=== PATIENT | male | born 1955 | race Caucasian/White ===

== ENCOUNTER 2019-08-06 08:01 | Emergency (ER) | payer MEDICARE, SELFPAY ==
--- NOTE | ~2019-08-06 | XR_ITS ---
EXAMINATION: XR tibia fibula RT 2V DATE: 08/06/2019 08:36 INDICATION: Right lower leg deformity. Fall. TECHNIQUE: 2 views of right tibia and fibula on 4 radiographs were obtained. COMPARISON: Right knee radiographs 02/03/2019 FINDINGS: Partially visualized is a total right knee arthroplasty revision. There is an oblique fract ure of mid shaft of right tibia. The distal fracture fragment demonstrates 9 mm posterior displacemen t, 4 mm medial displacement, 10 degrees anterior angulation, and 10 mm shortening. There is a comminu nidhi fracture of right fibula at the junction of the proximal and middle thirds. The main distal fract ure fragment demonstrates 3 mm medial displacement, 6 degrees medial angulation, 9 degrees anterior a ngulation, and shortening. There is normal alignment at the ankle. IMPRESSION: 1. Oblique fracture of mid shaft of right tibia. 2. Comminuted fracture of proximal right fibular diaphysis. 3. Total right knee arthroplasty. Reviewed, dictated and finalized at location A.
--- NOTE | ~2019-08-06 | XR_ITS ---
EXAMINATION: XR hip RT 2V w AP pelvis DATE: 08/06/2019 08:36 INDICATION: Right hip injury. TECHNIQUE: An anteroposterior view of the pelvis and 2 views of right hip were obtained. COMPARISON: None. FINDINGS: There is a basicervical fracture of right femoral neck. The distal fracture fragment demons trates 4 mm posterior displacement. Partially visualized is a total right knee arthroplasty. Osteopen ia is noted. There is mild osteoarthritis of the hips. There are changes of posterior fusion procedur e in lumbar spine. Surgical clips overlie the pelvis. A pump overlies left abdomen. IMPRESSION: 1. Basicervical fracture of right femoral neck. 2. Mild osteoarthritis of the hips. Reviewed, dictated and finalized at location A.
[2019-08-06 08:03] VITALS: BP 144/106; PULSE 66; RESP 22; TEMP 36.8; O2SAT 100
--- NOTE | 2019-08-06 08:07 | ED.FALL ---
HPI - Fall General Chief Complaint: Fall Stated Complaint: FALL Time Seen by Provider: 08/06/19 08:05 History of Present Illness HPI Narrative: He has a right leg injury after a fall this morning. He took a wrong step and his leg bent underneath him. severe pain in the right lower leg and hip. Noted to have deformities of both by EMS. Given 4 mg IM morphine without adequate pain control. Related Data Home Medications Medication Instructions Recorded Confirmed Novolog Flexpen U-100 Insulin See Rx Instructions .ROUTE .COMPLEX 01/07/19 01/07/19 albuterol sulfate [ProAir HFA] 2 puff INHALATION Q6H PRN 01/07/19 01/07/19 aspirin [Enteric Coated Aspirin] 81 mg PO DAILY 01/07/19 01/07/19 calcium carbonate-vitamin D3 1 cap PO DAILY 01/07/19 01/07/19 carvedilol 6.25 mg PO BID 01/07/19 01/07/19 folic acid 1 mg PO DAILY 01/07/19 01/07/19 multivitamin 1 tablet PO DAILY 01/07/19 01/07/19 aagiy-6-pvp-iig-lum-ncdw oil 1 cap PO BID 01/07/19 01/07/19 pyridoxine (vitamin B6) 100 mg PO DAILY 01/07/19 01/07/19 vitamin B complex 1 tablet PO DAILY 01/07/19 01/07/19 albuterol sulfate 90 mcg/actuation 2 puff INHALATION Q4-6H PRN gm 03/05/19 aerosol inhaler aspirin 81 mg tablet,delayed 81 mg PO DAILY 03/05/19 release blood sugar diagnostic, drum #51 each 03/05/19 carvedilol 6.25 mg tablet 6.25 mg PO Q12H 03/05/19 cholecalciferol (vitamin D3) 25 1,000 unit PO DAILY 03/05/19 mcg (1,000 unit) capsule cyanocobalamin (vitamin B-12) 1,000 mcg PO DAILY 03/05/19 1,000 mcg capsule insulin aspar prot-insulin aspart See Rx Instructions SUB-Q BID 03/05/19 100 unit/mL (70-30) subcutaneous pen ipratropium 0.5 mg-albuterol 3 mg 3 ml INHALATION .4 TIMES A DAY PRN 03/05/19 (2.5 mg base)/3 mL nebulization ml soln multivitamin 1 tablet PO DAILY 03/05/19 omega 6-ynu-ver-fish oil 100 cap PO 03/05/19 mg-160 mg-1,000 mg capsule tacrolimus 1 mg capsule 1 mg PO Q12H 03/05/19 cyanocobalamin (vitamin B-12) 1,000 mcg IM MONTHLY 03/19/19 03/19/19 1,000 mcg/mL injection solution tacrolimus 0.5 mg capsule 0.5 mg PO Q12H cap 03/19/19 03/19/19 doxycycline hyclate 100 mg tablet 100 mg PO BID tablet 08/05/19 Allergies Allergy/AdvReac Type Severity Reaction Status Date / Time cefazolin Allergy Mild Rash Verified 08/06/19 13:03 Cephalosporins Allergy Mild Rash Verified 08/06/19 13:03 Penicillins Allergy Mild Rash Verified 08/06/19 13:03 Review of Systems Review of Systems: All systems reviewed & are unremarkable except as noted in HPI and below Constitutional: Constitutional: Denies fever(s) Cardiovascular: Cardiovascular: Denies chest pain Respiratory: Respiratory: Denies dyspnea Gastrointestinal: Gastrointestinal: Denies nausea and Denies vomiting Neurologic: Denies dizziness and Denies numbness PMFSH Past Medical History Medical History Chronic low back pain Chronic pain syndrome Depression Hypertension, essential 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 Kidney disease 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 Type 2 diabetes mellitus with hyperglycemia, with long-term current use of insulin Surgical History Surgical History Renal transplant recipient Family History Family History Grandparent Acute myocardial infarction Mother Family history of chronic obstructive pulmonary disease Family history of lung cancer Father Carcinoma of colon Hypertension Social History Social History Smoking status: Former smoker Alcohol intake: current Gender identity (if verbalized by the patient): Male Exam Const: General: alert and ill appearing chronically Orientation/consciousness: patient oriented x3 Other: mild distress HENMT: Head: normal
[2019-08-06] MEDS: MORPHINE SULFATE 4 MG/ML INJ IV PUSH ×2 (08:17→10:25)
[2019-08-06 09:17] VITALS: BP 106/84; PULSE 70; RESP 18; O2SAT 100
--- NOTE | 2019-08-06 09:26 | PC.NURSE ---
Williams Ems declined transfer to [facility] Henny Ems accepted transfer to [facility] [place] TRIP # [id number] ETA 20min
[2019-08-06 10:18] VITALS: BP 138/114; PULSE 77; RESP 18; O2SAT 98
== END 2019-08-06 10:35 | disposition short-term general hospital (02) ==
LOC: ANHED 08:59
PROVIDERS: Emergency Provider Emergency Medicine; PCP Internal Medicine
DX: S82.231A Displaced oblique fracture of shaft of right tibia, initial encounter for closed fracture (principal); S72.041A Displaced fracture of base of neck of right femur, initial encounter for closed fracture; S89.291A Other physeal fracture of upper end of right fibula, initial encounter for closed fracture; Z96.651 Presence of right artificial knee joint; Z94.0 Kidney transplant status; I10 Essential (primary) hypertension; M16.0 Bilateral primary osteoarthritis of hip; Z79.82 Long term (current) use of aspirin; Z85.828 Personal history of other malignant neoplasm of skin; Z87.891 Personal history of nicotine dependence; Z79.4 Long term (current) use of insulin; N28.9 Disorder of kidney and ureter, unspecified; E11.9 Type 2 diabetes mellitus without complications; W01.0XXA Fall on same level from slipping, tripping and stumbling without subsequent striking against object, initial encounter
CPT/HCPCS: 29515; 73502; 73590; 96374; 96376; 99285; J2270

== ENCOUNTER 2019-12-22 00:12 | Outpatient (CLI) | payer MEDICARE, SELFPAY ==
[2019-12-22 18:38] LABS: SARS-CoV-2 RNA PCR Negative
== END 2019-12-22 00:13 | disposition home or self-care (01) ==
LOC: ANHCOVIDDT 00:32
PROVIDERS: PCP Internal Medicine; Visit Provider Internal Medicine Gastroenterology
DX: Z01.812 Encounter for preprocedural laboratory examination (principal); Z20.828 Contact with and (suspected) exposure to other viral communicable diseases
CPT/HCPCS: 87635; C9803; U0003

== ENCOUNTER 2019-12-24 01:42 | Day surgery (SDC) | payer MEDICARE, SELFPAY ==
[2019-12-20 13:33] VITALS: BMI 25.9
[2019-12-24 08:54] LABS: Glucose Point of Care 80 (65-105)
[2019-12-24 09:01] VITALS: BP 116/75; PULSE 90; RESP 20; TEMP 36.3; O2SAT 100
--- NOTE | 2019-12-24 09:08 | WPDANESEPPF ---
Anes - Initial Pre Proc Eval Procedure: Operation Date: 12/24/19 10:00 Proposed Procedures p Esophagogastroduodenoscopy & Screening Colonoscopy - Shaw Marie MD Date/Time: 12/24/19 09:08 Surgeon: Shaw Marie MD Pre Op Diagnosis: Neoplasm Screening, epigastric pain Patient Data Age: 64 Gender: M Height: 5 ft 9 in Weight: 84.2 kg Last Vital Signs Temp 97.4 F L 12/24/19 09:01 Pulse 90 12/24/19 09:01 Resp 20 12/24/19 09:01 BP 116/75 12/24/19 09:01 Pulse Ox 100 12/24/19 09:01 Allergies Allergy/AdvReac Type Severity Reaction Status Date / Time cefazolin Allergy Mild Rash Verified 12/24/19 08:57 Cephalosporins Allergy Mild Rash Verified 12/24/19 08:57 Penicillins Allergy Mild Rash Verified 12/24/19 08:57 Home Medications Medication Instructions Recorded Confirmed Type calcium carbonate-vitamin D3 1 cap PO DAILY 01/07/19 12/20/19 History folic acid 1 mg PO DAILY 01/07/19 12/20/19 History insulin aspart U-100 [Novolog See Rx Instructions .ROUTE .COMPLEX 01/07/19 12/20/19 History Flexpen U-100 Insulin] multivitamin 1 tablet PO DAILY 01/07/19 12/20/19 History exoqp-2-ozi-npy-yqr-grhn oil 1 cap PO BID 01/07/19 12/20/19 History pyridoxine (vitamin B6) 100 mg PO DAILY 01/07/19 12/20/19 History vitamin B complex 1 tablet PO DAILY 01/07/19 12/20/19 History blood sugar diagnostic #50 each 01/14/19 Rx blood-glucose meter #1 each 01/14/19 Rx lancets 26 gauge #100 each 01/14/19 Rx albuterol sulfate 90 mcg/actuation 2 puff INHALATION Q4-6H gm 03/05/19 12/20/19 History aerosol inhaler aspirin 81 mg tablet,delayed 81 mg PO DAILY 03/05/19 12/20/19 History release blood sugar diagnostic, drum #51 each 03/05/19 History cholecalciferol (vitamin D3) 25 1,000 unit PO DAILY 03/05/19 12/20/19 History mcg (1,000 unit) capsule insulin aspar prot-insulin aspart See Rx Instructions SUB-Q BID 03/05/19 12/20/19 History 100 unit/mL (70-30) subcutaneous pen tacrolimus 1 mg capsule 1 mg PO Q12H 03/05/19 12/20/19 History cyanocobalamin (vitamin B-12) 1,000 mcg IM MONTHLY 03/19/19 12/20/19 History 1,000 mcg/mL injection solution tacrolimus 0.5 mg capsule 0.5 mg PO Q12H cap 03/19/19 12/20/19 History gemfibrozil 600 mg tablet 600 mg PO DAILY #90 tablet 06/07/19 12/20/19 Rx spironolactone 100 mg tablet See Rx Instructions .ROUTE 10/04/19 12/20/19 Rx .COMPLEX #90 tablet hydromorphone [Dilaudid] 0.031 mg SUBCUT Q4H PRN 12/20/19 12/20/19 History insulin glargine [Lantus Solostar 4 unit SUB-Q DAILY 12/20/19 12/20/19 History U-100 Insulin] minocycline 100 mg PO DAILY 12/20/19 12/20/19 History prednisone 5 mg PO DAILY 12/20/19 12/20/19 History Laboratory Tests 12/24/19 08:51 POC Capillary Glucose 80 mg/dl mg/dl (65-105) Patient hx anesthesia problems: none Family hx anesthesia problems: none PMFSH Past Medical History Medical History (Updated 08/07/19 @ 00:00 by Background Dasaúl) Chronic low back pain Chronic pain syndrome Depression Hypertension, essential 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 Kidney disease 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
--- NOTE | 2019-12-24 09:18 | PM.HPGS ---
History of Present Illness History of Present Illness Consent: Risks, benefits, and alternatives have been discussed and questions answered. Patient agrees to proceed with procedure. Chief complaint: Neoplasm Screening, epigastric pain Narrative: Abhilash Jesus is a 64 year old male Here for screening colonoscopy. his father had colon cancer He is also having epigastric pain which began about 6 months ago. It is mostly aggravated by drinking something cold. Occasion he will have a feeling that his saliva is going down the wrong throat and gags him temporarily. 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es not use Living arrangements: with family Gender identity (if verbalized by the patient): Male Spiritual care concerns: No Meds Home Medications and Allergies Home Medications Medication Instructions Recorded Confirmed Type calcium carbonate-vitamin D3 1 cap PO DAILY 01/07/19 12/20/19 History folic acid 1 mg PO DAILY 01/07/19 12/20/19 History insulin aspart U-100 [Novolog See Rx Instructions .ROUTE .COMPLEX 01/07/19 12/20/19 History Flexpen U-100 Insulin] multivitamin 1 tablet PO DAILY 01/07/19 12/20/19 History ndeke-2-ljn-anc-rxm-xemd oil 1 cap PO BID 01/07/19 12/20/19 History pyridoxine (vitamin B6) 100 mg PO DAILY 01/07/19 12/20/19 History vitamin B complex 1 tablet PO DAILY 01/07/19 12/20/19 History blood sugar diagnostic #50 each 01/14/19 Rx blood-glucose meter #1 each 01/14/19 Rx lancets 26 gauge #100 each 01/14/19 Rx albuterol sulfate 90 mcg/actuation 2 puff INHALATION Q4-6H gm 03/05/19 12/20/19 History aerosol inhaler aspirin 81 mg tablet,delayed 81 mg PO DAILY 03/05/19 12/20/19 History release blood sugar diagnostic, drum #51 each 03/05/19 History cholecalciferol (vitamin D3) 25 1,000 unit PO DAILY 03/05/19 12/20/19 History mcg (1,000 unit) capsule insulin aspar prot-insulin aspart See Rx Instructions SUB-Q BID 03/05/19 12/20/19 History 100 unit/mL (70-30) subcutaneous pen tacrolimus 1 mg capsule 1 mg PO Q12H 03/05/19 12/20/19 History cyanocobalamin (vitamin B-12) 1,000 mcg IM MONTHLY 03/19/19 12/20/19 History 1,000 mcg/mL injection solution tacrolimus 0.5 mg capsule 0.5 mg PO Q12H cap 03/19/19 12/20/19 History gemfibrozil 600 mg tablet 600 mg PO DAILY #90 tablet 06/07/19 12/20/19 Rx spironolactone 100 mg tablet See Rx Instructions .ROUTE 10/04/19 12/20/19 Rx .COMPLEX #90 tablet hydromorphone [Dilaudid] 0.031 mg SUBCUT Q4H PRN 12/20/19 12/20/19 History insulin glargine [Lantus Solostar 4 unit SUB-Q DAILY 12/20/19 12/20/19 History U-100 Insulin] minocycline 100 mg PO DAILY 12/20/19 12/20/19 History prednisone 5 mg PO DAILY 12/20/19 12/20/19 History Allergies Allergy/AdvReac Type Severity Reaction Status Date / Time cefazolin Allergy Mild Rash Verified 12/24/19 08:57 Cephalosporins Allergy Mild Rash Veri
[2019-12-24] MEDS: LACTATED RINGERS 1,000 ML 150 ML IV CONT (09:19)
[2019-12-24] MEDS: SIMETHICONE ORAL SUSPENSION 20 MG/0.3 ML 30 ML BOTTLE 0.6 ML IRRIGATION (09:33)
[2019-12-24 09:53] VITALS: BP 100/80; PULSE 72; RESP 31; O2SAT 100
[2019-12-24 10:03] VITALS: BP 113/68; PULSE 69; RESP 19; O2SAT 100
[2019-12-24 10:07] LABS: Glucose Point of Care 76 (65-105)
[2019-12-24 10:13] VITALS: BP 130/74; PULSE 68; RESP 17; O2SAT 100
== END 2019-12-24 10:25 | disposition home or self-care (01) ==
PROVIDERS: PCP Internal Medicine; Visit Provider Internal Medicine Gastroenterology
PROC: 0DJ08ZZ Inspection of Upper Intestinal Tract, Via Natural or Artificial Opening Endoscopic (ICD-10-PCS; CPT 43235; principal; 2019-12-24 10:00)
DX: Z12.11 Encounter for screening for malignant neoplasm of colon (principal); D17.5 Benign lipomatous neoplasm of intra-abdominal organs; K64.8 Other hemorrhoids; Z80.0 Family history of malignant neoplasm of digestive organs; R10.13 Epigastric pain; Z98.84 Bariatric surgery status; I10 Essential (primary) hypertension; E11.9 Type 2 diabetes mellitus without complications; F32.9 Major depressive disorder, single episode, unspecified; M54.9 Dorsalgia, unspecified; G89.4 Chronic pain syndrome; Z94.0 Kidney transplant status; Z79.4 Long term (current) use of insulin; Z79.82 Long term (current) use of aspirin; Z87.891 Personal history of nicotine dependence
CPT/HCPCS: 43235; G0105; J2370; J2704; J7120

== ENCOUNTER → 2020-03-06 12:26 | Outpatient (CLI) | payer MEDICARE, SELFPAY ==
--- NOTE | ~2020-03-06 | XR_ITS ---
XR shoulder RT min 2V DATE: 03/06/2020 12:54 INDICATION: Right shoulder pain TECHNIQUE: 4 views COMPARISON: None FINDINGS: Diffuse osteopenia. No fracture, dislocation, periosteal reaction or bone destruction or abnormal soft tissue calcificati on. IMPRESSION: Osteopenia Reviewed, dictated and finalized at location A. S TUBE BENDER IMPRESSION: Osteopenia
--- NOTE | ~2020-03-06 | XR_ITS ---
XR shoulder LT min 2V DATE: 03/06/2020 12:54 INDICATION: Left shoulder pain TECHNIQUE: 4 views COMPARISON: None FINDINGS: Diffuse osteopenia. No fracture or dislocation, periosteal reaction or bone destruction or abnormal left shoulder soft ti ssue calcification. IMPRESSION: Diffuse osteopenia Reviewed, dictated and finalized at location A. BILITATION TECHNICIAN IMPRESSION: Diffuse osteopenia
== END ==
PROVIDERS: PCP Internal Medicine; Visit Provider Nurse Practitioner Adult Health
DX: M85.811 Other specified disorders of bone density and structure, right shoulder (principal); M85.812 Other specified disorders of bone density and structure, left shoulder
CPT/HCPCS: 73030

== ENCOUNTER → 2020-04-07 10:02 | Outpatient (CLI) | payer MEDICARE, SELFPAY ==
--- NOTE | ~2020-04-07 | DEXA_ITS ---
Bone Density Report Name: Abhilash Jesus Age: 64 Sex: Male Ethnicity: White Date of : 1955 Indication: height loss; history of glucocorticoids; prior fracture; asthma or emphysema; end stage renal disease; Referring Provider: SUGAR MCKEON Study: Bone densitometry was performed. Exam Date: April 07, 2020 Accession number: [id number] Bone Density: Region BMD T-score Z-score Classification AP Spine (L1, L2) 0.783 -2.5 -1.7 Osteoporosis Femoral Neck (Left) 0.461 -3.4 -2.4 Osteoporosis Total Hip (Left) 0.487 -3.6 -3.1 Osteoporosis World Health Organization criteria for BMD impression classify patients as: Normal (T-score at or above -1.0), Osteopenia (T-score between -1.0 and -2.5), or Osteoporosis (T-score at or below -2.5). 10-year Fracture Risk: FRAX not reported because: Some T-score for Spine Total or Hip Total or Femoral Neck at or below -2.5 Prior hip or vertebral fracture Clinical Information Provided by Patient: Have had a previous hip or vertebral fracture Has had a low trauma fracture Has taken Glucocorticoids Has used the following medications: Vitamin D, Calcium Has the following medical conditions: Asthma or Emphysema, End stage renal disease, 2008 kidney transplant Patient maximum height was 70 No regular weight bearing exercise Drinks caffeinated beverages Impression: The patient has established osteoporosis, based on the Left Total Hip T-score and the existence of a prior fracture. The patient has risk factors, including: previous fracture, history of glucocorticoid therapy. Discussion: HIGH RISK OF FRACTURE. BONE DENSITY IS UNDESIRABLY LOW AT ONE OR MORE SKELETAL SITES, CONSISTENT WITH OSTEOPOROSIS. This patient's lowest T-score, in a patient who has previously fractured, meets the World Health Organization's (WHO) criteria for severe osteoporosis. In untreated patients, the risk of osteoporotic fracture increases approximately two-fold for each 1.0 SD decrease in T-score. Low bone density is not the only risk factor for fracture; also consider factors such as patient's age, frailty or poor health, risk of falling, risk of injury, previous osteoporotic fracture, family history of osteoporosis, cigarette smoking, low body weight, etc. Not everyone with low bone mineral density has osteoporosis; osteomalacia and other metabolic bone disorders should also be considered. Patients who have osteoporosis should be evaluated for specific diseases and conditions (secondary causes) that may cause or contribute to bone loss. The National Osteoporosis Foundation (NOF) recommends pharmacologic intervention for men with BMD at this level (a T-score of -2.5 or below). The patient should follow a healthful lifestyle (good nutrition with adequate calcium and vitamin D, and appropriate weight-bearing exercise). Follow-Up: Consider a repeat BMD and Jude
== END ==
PROVIDERS: PCP Internal Medicine; Visit Provider Internal Medicine
DX: M81.0 Age-related osteoporosis without current pathological fracture (principal); Z79.52 Long term (current) use of systemic steroids
CPT/HCPCS: 77080

== ENCOUNTER → 2020-07-01 07:02 | Outpatient (CLI) | payer MEDICARE, SELFPAY ==
[2020-07-01 20:54] LABS: SARS-CoV-2 RNA PCR Negative
== END ==
PROVIDERS: PCP Internal Medicine; Visit Provider Internal Medicine Gastroenterology
DX: Z01.812 Encounter for preprocedural laboratory examination (principal); Z20.822 Contact with and (suspected) exposure to COVID-19
CPT/HCPCS: C9803; U0003; U0005

== ENCOUNTER 2020-07-05 00:40 | Day surgery (SDC) | payer MEDICARE, SELFPAY ==
[2020-06-27 15:43] VITALS: BMI 28.8
[2020-07-05 06:54] VITALS: BP 154/83; PULSE 81; RESP 18; TEMP 36.4; O2SAT 100
[2020-07-05 07:14] LABS: Glucose Point of Care 100 (65-105)
[2020-07-05] MEDS: LACTATED RINGERS 1,000 ML 150 ML IV CONT (07:20)
--- NOTE | 2020-07-05 07:29 | PM.HPGS ---
History of Present Illness History of Present Illness Consent: Risks, benefits, and alternatives have been discussed and questions answered. Patient agrees to proceed with procedure. Chief complaint: dysphagia Narrative: Abhilash Jesus is a 65 year old male who was been having increasing difficulty with swallowing. Solid food seems to get stuck and lately even liquids do not go down well. He had wondered if perhaps having had several recent surgical procedures that somehow the intubation for anesthesia could have caused this. 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 Kidney disease 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 Type 2 diabetes mellitus with hyperglycemia, with long-term current use of insulin Surgical History Surgical History Renal transplant recipient Family History Family History Grandparent Acute myocardial infarction Mother Family history of chronic obstructive pulmonary disease Family history of lung cancer Father Carcinoma of colon Hypertension Social History Social History Smoking packs per day: 1 Smoking cigarettes per day: 20.0 Years smoked: 15 Smoking pack-years: 15.00 Smoking status: Former smoker Tobacco type: cigarettes Alcohol intake: former Alcohol use details: quit 2015 Substance use type: does not use Living arrangements: with family Gender identity (if verbalized by the patient): Male Spiritual care concerns: No Meds Home Medications and Allergies Home Medications Medication Instructions Recorded Confirmed Type calcium carbonate-vitamin D3 1 cap PO DAILY 01/07/19 06/27/20 History folic acid 1 mg PO DAILY 01/07/19 06/27/20 History multivitamin 1 tablet PO DAILY 01/07/19 06/27/20 History srswu-0-uff-jxu-zje-eacr oil 1 cap PO BID 01/07/19 06/27/20 History pyridoxine (vitamin B6) 100 mg PO DAILY 01/07/19 06/27/20 History vitamin B complex 1 tablet PO DAILY 01/07/19 06/27/20 History blood sugar diagnostic #50 each 11/07/19 04/09/21 Rx blood-glucose meter #1 each 01/14/19 06/16/20 Rx lancets 26 gauge #100 each 01/14/19 06/16/20 Rx albuterol sulfate 90 mcg/actuation 2 puff INHALATION Q4-6H gm 03/05/19 06/27/20 History aerosol inhaler aspirin 81 mg tablet,delayed 81 mg PO DAILY 03/05/19 06/27/20 History release blood sugar diagnostic, drum #51 each 03/05/19 06/16/20 History cholecalciferol (vitamin D3) 25 1,000 unit PO DAILY 03/05/19 06/27/20 History mcg (1,000 unit) capsule cyanocobalamin (vitamin B-12) 1,000 mcg IM MONTHLY 03/19/19 06/27/20 History 1,000 mcg/mL injection solution hydromorphone 0.031 mg SUBCUT Q4H PRN 12/20/19 06/27/20 History minocycline 100 mg PO DAILY 12/20/19 06/27/20 History prednisone 5 mg PO DAILY 12/20/19 06/27/20 History tacrolimus 1 mg capsule, 1 mg PO Q12H #1 cap 06/02/20 06/27/20 Rx immediate-release spironolactone 100 mg tablet See Rx Instructions .ROUTE 06/26/20 06/27/20 Rx .COMPLEX #90 tablet Novolog U-100 Insulin aspart 06/27/20 History gemfibrozil 600 mg PO BID 06/27/20 06/27/20 History Allergies Allergy/AdvReac Type Severity Reaction Status Date / Time cefazolin Allergy Mild Rash Verified 07/05/20 06:53 Cephalosporins Allergy Mild Rash Verified 07/05/20 06:53 Penicillins Allergy Mild Rash Verified 07/05/20 06:53 Vital Signs Vital Signs - 24 hr 07/05/20 06:54 Temperature 36.4 C L Pulse Rate 81 Respiratory Rate 18 Blood Pressure 154/83 H Pulse Oximetry 100 Exam Const: General: alert Or
--- NOTE | 2020-07-05 07:42 | WPDANESEPPF ---
Anes - Initial Pre Proc Eval Procedure: Operation Date: 07/05/20 08:00 Proposed Procedures p Esophagogastroduodenoscopy - Shaw Marie MD Date/Time: 07/05/20 07:42 Surgeon: Shaw Marie MD Pre Op Diagnosis: dysphagia Patient Data Age: 65 Gender: M Height: 5 ft 8 in Weight: 89.6 kg Last Vital Signs Temp 97.5 F L 07/05/20 06:54 Pulse 81 07/05/20 06:54 Resp 18 07/05/20 06:54 BP 154/83 H 07/05/20 06:54 Pulse Ox 100 07/05/20 06:54 Allergies Allergy/AdvReac Type Severity Reaction Status Date / Time cefazolin Allergy Mild Rash Verified 07/05/20 06:53 Cephalosporins Allergy Mild Rash Verified 07/05/20 06:53 Penicillins Allergy Mild Rash Verified 07/05/20 06:53 Home Medications Medication Instructions Recorded Confirmed Type calcium carbonate-vitamin D3 1 cap PO DAILY 01/07/19 06/27/20 History folic acid 1 mg PO DAILY 01/07/19 06/27/20 History multivitamin 1 tablet PO DAILY 01/07/19 06/27/20 History unycg-5-pjl-wxq-buk-zior oil 1 cap PO BID 01/07/19 06/27/20 History pyridoxine (vitamin B6) 100 mg PO DAILY 01/07/19 06/27/20 History vitamin B complex 1 tablet PO DAILY 01/07/19 06/27/20 History blood sugar diagnostic #50 each 01/14/19 06/16/20 Rx blood-glucose meter #1 each 01/14/19 06/16/20 Rx lancets 26 gauge #100 each 01/14/19 06/16/20 Rx albuterol sulfate 90 mcg/actuation 2 puff INHALATION Q4-6H gm 03/05/19 06/27/20 History aerosol inhaler aspirin 81 mg tablet,delayed 81 mg PO DAILY 03/05/19 06/27/20 History release blood sugar diagnostic, drum #51 each 03/05/19 06/16/20 History cholecalciferol (vitamin D3) 25 1,000 unit PO DAILY 03/05/19 06/27/20 History mcg (1,000 unit) capsule cyanocobalamin (vitamin B-12) 1,000 mcg IM MONTHLY 03/19/19 06/27/20 History 1,000 mcg/mL injection solution hydromorphone 0.031 mg SUBCUT Q4H PRN 12/20/19 06/27/20 History minocycline 100 mg PO DAILY 12/20/19 06/27/20 History prednisone 5 mg PO DAILY 12/20/19 06/27/20 History tacrolimus 1 mg capsule, 1 mg PO Q12H #1 cap 06/02/20 06/27/20 Rx immediate-release spironolactone 100 mg tablet See Rx Instructions .ROUTE 06/26/20 06/27/20 Rx .COMPLEX #90 tablet Novolog U-100 Insulin aspart 06/27/20 History gemfibrozil 600 mg PO BID 06/27/20 06/27/20 History Laboratory Tests 07/05/20 07/05/20 07:05 07:12 PT Pending INR Pending POC Capillary Glucose 100 mg/dl mg/dl (65-105) Patient hx anesthesia problems: none Family hx anesthesia problems: none PMFSH Past Medical History Medical History Chronic low back pain Chronic pain syndrome Depression Hypertension, essential 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 Kidney disease 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 Type 2 diabetes mellitus with hyperglycemia, with long-term current use of insulin Surgical History Surgical History Renal transplant recipient Family History Family History Grandparent Acute myocardial infarction Mother Family history of chronic obstructive pulmonary disease Family history of lung cancer Father Carcinoma of colon Hypertension Social History Social History Smoking packs per day: 1 Smoking cigarettes per day: 20.0 Years smoked: 15 Smoking pack-years: 15.00 Smoking status: Former smoker Tobacco type: cigarettes Alcohol intake: former Alcohol use details: quit 2015 Substance use type: does not use Living arrangements: with family Gender identity (if verbalized by the patient): Male Spiritual care concerns: No Anes - Eval Final PreProcedure Day of Procedure 07/05/20 07:42 Patient weight: obese Heart: regular rate and rhythm Lungs: clear to auscultation Airway: Mallampati
[2020-07-05 07:46] LABS: INR 1.1; Prothrombin Time 14.3 Seconds (11.1-14.7)
[2020-07-05 08:09] VITALS: BP 76/41; PULSE 91; RESP 24; O2SAT 95
[2020-07-05 08:19] VITALS: BP 111/72; PULSE 75; RESP 22; O2SAT 100
[2020-07-05 08:29] VITALS: BP 116/72; PULSE 73; RESP 22; O2SAT 100
== END 2020-07-05 08:48 | disposition home or self-care (01) ==
PROVIDERS: PCP Internal Medicine; Visit Provider Internal Medicine Gastroenterology
PROC: 0DJ08ZZ Inspection of Upper Intestinal Tract, Via Natural or Artificial Opening Endoscopic (ICD-10-PCS; CPT 43235; principal; 2020-07-05 08:00)
DX: K22.2 Esophageal obstruction (principal); K20.0 Eosinophilic esophagitis; I10 Essential (primary) hypertension; E11.9 Type 2 diabetes mellitus without complications; Z79.4 Long term (current) use of insulin; E78.5 Hyperlipidemia, unspecified; J45.909 Unspecified asthma, uncomplicated; Z87.891 Personal history of nicotine dependence; Z90.3 Acquired absence of stomach [part of]; Z85.828 Personal history of other malignant neoplasm of skin; Z94.0 Kidney transplant status
CPT/HCPCS: 43249; 43239; 36415; 82948; 85610; 88305; C1726; J2001; J2704; J7120

== ENCOUNTER 2020-09-22 09:41 | Outpatient (CLI) | payer MEDICARE, SELFPAY ==
--- NOTE | 2020-09-25 16:32 | WPDHOLTEREM ---
Holter/Event Monitor Holter/Event Monitor Date of procedure: 09/22/20 Holter/Event Procedure: 48 Hr Holter Monitor Indications: Tachycardia Conclusion: 1. 48 hour holter monitor on 09/22/20. 2. Predominant rhythm is sinus rhythm. HR range 48-143 bpm; average HR 76 bpm. 3. There are 4,398 premature supraventricular complexes, 130 supraventricular couplets, 60 supraventricular bigeminy and 6 supraventricular trigeminy. There are 16 runs of atrial tachycardia, fastest at 174 bpm and longest lasting 38 beats. With one run the QRS morphology changed to wide complex LBBB morphology suggesting aberrancy. 4. There are 208 premature ventricular complexes. No ventricular tachycardia. 5. No sinoatrial or atrioventricular blocks. No significant pauses greater than 2 seconds. 6. No symptoms available for correlation.
== END 2020-09-22 09:42 | disposition home or self-care (01) ==
LOC: ANHCARD 09:44
PROVIDERS: PCP Physician Assistant; Visit Provider Physician Assistant
DX: R00.0 Tachycardia, unspecified (principal)
CPT/HCPCS: 93225; 93226

== ENCOUNTER 2020-12-05 07:52 | Outpatient (CLI) | payer MEDICARE, SELFPAY ==
--- NOTE | 2020-12-15 12:10 | WPDHOMESLEEP ---
Sleep Study - Home Unattended Date of Study: 12/05/20 <Alicia Souza DO - Last Filed: 12/15/20 12:31> Ordering Provider: Mike Salcedo PA-C <Alicia Souza DO - Last Filed: 12/15/20 12:31> Interpreting Provider: Alicia Souza DO <Alicia Souza - Last Filed: 12/15/20 12:31> Home Sleep Study Type: Watch PAT <Alicia Souza - Last Filed: 12/15/20 12:31> Height: 1.73 m <Alicia Souza DO - Last Filed: 12/15/20 12:31> Weight: 86.183 kg <Alicia Souza DO - Last Filed: 12/15/20 12:31> Body Mass Index: 28.8 <Alicia Souza DO - Last Filed: 12/15/20 12:31> Neck Circumference (inches): 17 <Alicia Souza DO - Last Filed: 12/15/20 12:31> [place]: 2 <Alicia Souza DO - Last Filed: 12/15/20 12:31> Reason for Sleep Study The patient states that he has used BiPAP for the past 20 years. He lost 200 lb and quit using BiPAP. He occasionally wakes up with a headache in the morning but no other sleep complaints. He is unsure whether he still has sleep apnea. <Alicia Souza DO - Last Filed: 12/15/20 12:31> Sleep History The patient is a 65-year-old male with diabetes, GERD and history of MANUEL that had a home sleep test ordered due to morning headaches. The patient denies awakening from sleep short of breath or with GERD symptoms. The patient often snores but not to the point where others complain. He denies waking up gasping for air throughout the night. He often has heart palpitations throughout the night. He often falls asleep during the day but denies falling asleep while driving. He often experiences loss of muscle tone when extremely emotional. He denies having trouble at school or work due to sleepiness. He denies sleep paralysis. He often experiences vivid dreamlike scenes upon awakening or falling asleep. Denies nightmares. He denies feeling depressed or anxious. He denies kicking throughout the night and noticing parts of his body jerk. He denies experiencing crawling and aching feelings in his legs. He frequently has leg pain throughout the night. He denies grinding his teeth throughout the night and morning jaw pain. He is frequently bothered by pain throughout the day and is rarely awakened by pain throughout the night. He frequently wakes up feeling stiff in the morning with sore and achy muscles. He constantly wakes up with pain in the neck spine or joints. The patient goes to bed at 10:00 p.m. on the weekdays and weekends. He usually gets about 7 hours of sleep. It takes him about 30 minutes to fall asleep. He wakes up 2 times throughout the night he has a restaurant. He usually falls asleep within 5 minutes after getting up throughout the night. He will wake up at 6:30 a.m. in the morning on weekdays and weekends. He currently lives with his . He does not consume any caffeinated beverages 2 hours prior to bedtime. He does not do any physical exercise before bedtime. He will watch television before falling asleep. He does not report before falling asleep. He will occasionally take naps during the afternoon or evening and feels refreshed afterwards. The patient is a former smoker. He denies alcohol recreational drug use. He will drink 2 caffeinated beverages per day. 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
[2020-12-15 12:31] VITALS: BMI 28.8
== END 2020-12-07 10:06 | disposition home or self-care (01) ==
LOC: ANHCSM 07:54
PROVIDERS: PCP Physician Assistant; Visit Provider Physician Assistant
DX: G47.10 Hypersomnia, unspecified (principal); G47.33 Obstructive sleep apnea (adult) (pediatric); G47.31 Primary central sleep apnea
CPT/HCPCS: 95800

== ENCOUNTER 2021-03-19 10:46 | Outpatient (CLI) | payer MEDICARE, SELFPAY ==
--- NOTE | ~2021-03-19 | XR_ITS ---
EXAMINATION: XR toe 1st RT min 2V DATE: 03/19/2021 11:10 INDICATION: Non-pressure chronic ulcer. TECHNIQUE: 5 views of right great toe were obtained. COMPARISON: None. FINDINGS: Bone alignment is normal. There is a comminuted fracture of tuft of first distal phalanx. T he main distal fracture fragment demonstrates 1 mm dorsal displacement. There is mild osteoarthritis of first metatarsophalangeal joint and first interphalangeal joint. Partially visualized is instrumen tation in the lower leg. IMPRESSION: 1. Comminuted fracture of tuft of first distal phalanx. Reviewed, dictated and finalized at location B. TECHNICIAN
== END 2021-03-19 10:47 | disposition home or self-care (01) ==
LOC: ANHIMG 10:51
PROVIDERS: PCP Physician Assistant; Visit Provider Physician Assistant
DX: L97.509 Non-pressure chronic ulcer of other part of unspecified foot with unspecified severity (principal); S92.421A Displaced fracture of distal phalanx of right great toe, initial encounter for closed fracture; X58.XXXA Exposure to other specified factors, initial encounter
CPT/HCPCS: 73660

== ENCOUNTER 2021-03-25 18:17 | Inpatient (IN) | payer MEDICARE, SELFPAY ==
--- NOTE | ~2021-03-25 | XR_ITS ---
EXAMINATION: XR chest port-a-cath/central DATE: 03/26/2021 12:45 INDICATION: Central line placement TECHNIQUE: frontal view of the chest was obtained. COMPARISON: Chest radiograph dated 03/25/2021 FINDINGS: Left internal jugular central venous catheter with distal tip at the midsuperior vena cava. Calcified nodules in the right midlung zone consistent with old granulomatous disease. No other airspace opaci ties, pulmonary edema, pleural effusion or pneumothorax. Cardiomediastinal silhouette is normal. Sutu re line in the epigastric region consistent with prior gastric bypass procedure. Old left rib fractur es. IMPRESSION: 1. No acute cardiopulmonary disease. Reviewed, dictated and finalized at location A. PRESS OPERATOR
--- NOTE | ~2021-03-25 | XR_ITS ---
EXAMINATION: [id number] INDICATION: Right-sided chest pain after fall TECHNIQUE: A frontal view of the chest and 3 views of the right ribs were obtained. COMPARISON: None. FINDINGS: A left internal jugular catheter ends with its tip in the proximal superior vena cava. The lungs are free of acute opacities. There is no pleural effusion or pneumothorax. There are acute frac tures of the anterolateral right fourth through sixth ribs and a possible fracture of the anterolater al right 10th rib. There are partially imaged changes of lumbar fusion. IMPRESSION: 1. No acute cardiopulmonary abnormality. 2. Acute anterolateral fractures of the right fourth through sixth ribs and possible right 10th rib f racture. Reviewed, dictated and finalized at location F. RVISOR INTERMEDIATES IMPRESSION: 1. No acute cardiopulmonary abnormality. 2. Acute anterolateral fractures of the right fourth through sixth ribs and pos sible right 10th rib fracture.
--- NOTE | ~2021-03-25 | CT_ITS ---
EXAMINATION: CT brain wo con EXAM DATE: 03/25/2021 19:20 INDICATION: Trauma. Head injury. TECHNIQUE: Spiral CT of the head was performed without contrast. Axial, coronal and sagittal images were reviewed. The dose-length product (DLP) for this examination was 605.33 mGy-cm. The exposure w as tailored according to patient size, and iterative reconstruction (ASIR) was used as additional dos e reduction technique. Comparison is made to prior examination from 02/03/2019. FINDINGS: There is no acute intraparenchymal hemorrhage. No evidence of intraparenchymal brain mass lesion. No evidence of acute infarction. Please note that initial head CT has limited sensitivity f or small or acute infarctions. There is mild periventricular and subcortical hypodensity, nonspecific but probably related to small vessel ischemic disease. There is mild prominence of the sulci and v entricles related to cerebral atrophy. There is intracranial carotid arteriosclerosis. There are n o extra-axial collections. There is no mass effect or midline shift. Patient has had bilateral ocul ar lens surgery. Soft tissue is unremarkable. The visualized sinuses and mastoid air cells are well aerated. IMPRESSION: 1. No acute intracranial findings. 2. Chronic age related findings. Reviewed, dictated and finalized at location G. B TECH
--- NOTE | ~2021-03-25 | XR_ITS ---
XR chest 1V portable DATE: 03/25/2021 21:34 INDICATION: Fall TECHNIQUE: 03/25/2021 portable AP chest at 2130 hours COMPARISON: 01/07/2019 portable AP chest FINDINGS: Heart size is within normal limits. Is aortic arch calcification. No pulmonary infiltrate or consolidation, pleural effusion or pulmonary vascular congestion or pneumo thorax is detected. Diffuse osteopenia. IMPRESSION: No active cardiopulmonary disease Reviewed, dictated and finalized at location A. SMOKING MACHINE OFFBEARER
--- NOTE | ~2021-03-25 | XR_ITS ---
EXAMINATION: XR hip RT 2V w AP pelvis DATE: 03/26/2021 17:24 INDICATION: Right hip pain. TECHNIQUE: An anteroposterior view of the pelvis and 2 views of right hip on a total of 5 radiographs were obtained. COMPARISON: Pelvis and right hip radiographs 08/06/19, CT abdomen and pelvis 07/16/2006 FINDINGS: Bone alignment is normal. There is diffuse osteopenia. No acute fracture. A benign bone isl and overlies left acetabulum. There are changes of posterior fusion procedure of lumbar spine with pe dicle screws. A pump overlies left abdomen. Surgical clips overlie right pelvis. There is internal fi xation of proximal right femur with plate and screws, cables, and femoral head/neck screw. There is a total right knee arthroplasty in near-anatomic alignment. There is plate and screw fixation of right tibia. There is mild osteoarthritis of the hips. IMPRESSION: 1. Mild osteoarthritis of the hips. Reviewed, dictated and finalized at location A. RAISER
--- NOTE | ~2021-03-25 | CT_ITS ---
EXAMINATION: CT thoracic lumbar wo con DATE: 03/26/2021 17:37 INDICATION: Back pain. TECHNIQUE: Computed tomography (CT) of the thoracic and lumbar spine was performed without intravenou s contrast. Automated exposure control and iterative reconstruction technique were employed. The dose -length product was 1856.63 mGy-cm. COMPARISON: None FINDINGS: CT THORACIC SPINE: There are surgical changes in the stomach. There are gallstones in the gallbladder , which is distended. There is severe atrophy of the kidneys. There are bridging endplate osteophytes from T1 to L2, consistent with diffuse idiopathic skeletal hyperostosis (DISH). There is a transvers e oblique fracture of T8 vertebral body. There is an intrathecal catheter with tip at T7. There is mu ltilevel mild to moderate facet joint hypertrophy. There is mild neural foraminal stenosis at multipl e levels bilaterally. No central canal stenosis. CT LUMBAR SPINE: Bone alignment is normal. Vertebral body heights are normal. There are changes of po sterior fusion procedure from L3 to L5 with pedicle screws. There is mildly decreased disc height at L1-L2 and L4-L5. There are bridging endplate osteophytes from thoracic spine to L2 and at] L5-S1. Oss eous central spinal canal is developmentally small. The following disc levels are specifically discus sed: L1-L2: The disc does not extend beyond the endplate margin. There is moderate bilateral facet joint h ypertrophy. There is mild left neural foraminal stenosis. There is mild central canal stenosis. L2-L3: The disc is bulging. There is severe bilateral facet joint hypertrophy. There is mild bilatera l neural foraminal stenosis. There is mild central canal stenosis. L3-L4: The disc is bulging. There is severe bilateral facet joint hypertrophy. There is mild left bang ral foraminal stenosis. There is mild central canal stenosis with posterior decompression. L4-L5: The disc does not extend beyond the endplate margin. There is severe bilateral facet joint hyp ertrophy. There is mild bilateral neural foraminal stenosis. There is no central canal stenosis. L5-S1: The disc does not extend beyond the endplate margin. There is severe bilateral facet joint ost eoarthritis. There is mild bilateral neural foraminal stenosis. There is no central canal stenosis. IMPRESSION: 1. DISH. 2. Acute transverse oblique fracture through T8 vertebral body. 3. Mild lumbar spondylosis. 4. Posterior fusion procedure from L3 to L5. Reviewed, dictated and finalized at location A. CRUSHER
--- NOTE | ~2021-03-25 | XR_ITS ---
EXAMINATION: XR knee RT 3V EXAM DATE: 03/25/2021 19:33 INDICATION: Trauma, right knee pain. TECHNIQUE: Three projections of the right knee. Comparison is made to prior examination from 0. FINDINGS: Previously seen acute right tibial fracture has been fixed with an external plate. This ana ears to have healed. Previously seen fibular fracture also appears to have healed. There is right kne e hardware, arthrodesis with distal femoral replacement. There is large laceration identified over th e knee laterally. IMPRESSION: 1. Right knee soft tissue laceration. 2. Knee, femoral, tibial hardware, imaged portions intact. Reviewed, dictated and finalized at location G. APEUTIC RECREATION DIRECTOR
--- NOTE | ~2021-03-25 | XR_ITS ---
EXAMINATION: XR humerus LT EXAM DATE: 03/25/2021 19:33 INDICATION: fall with laceration. Left humeral, shoulder pain. Initial encounter. TECHNIQUE: 2 orthogonal projections of the left humerus. Correlation was made with left shoulder exa mination 03/06/2020. FINDINGS: There are no acute left humerus fractures or dislocations identified. There is no subcutan eous gas. The soft tissue is unremarkable. There are no radiopaque foreign bodies. IMPRESSION: 1. XR humerus LT exam without acute osseous findings. Reviewed, dictated and finalized at location G. UITMENT COORDINATOR
--- NOTE | ~2021-03-25 | XR_ITS ---
XR hip RT 2V w AP pelvis DATE: 04/01/2021 12:08 INDICATION: Fall. Right hip pain. TECHNIQUE: AP pelvis. AP and lateral views of right hip. COMPARISON: 01/24/2022 pelvis and right hip FINDINGS: Pump device overlies the left lateral mid abdomen. Prominent diffuse osteopenia. Status post posterior lumbar spinal surgical fusion. Transitional lumbosacral vertebra. The pubic symphysis and sacroiliac joints appear intact. No apparent pelvic fracture or bone destruct ion is evident. Probable bone island of left acetabulum. Compression screw of right femoral head with associated side plate along the lateral right femoral sh aft with transverse screws and cerclage wire. There is an intramedullary fernando of the distal femoral sh aft. There is normal alignment at the hip joints. No right hip dislocation or apparent recent fracture is noted. IMPRESSION: Prominent diffuse osteopenia Status post posterior lumbar spinal fusion Transitional lumbosacral vertebra No apparent recent pelvic or right hip fracture or dislocation The prominent diffuse osteopenia may obscure nondisplaced or insufficiency fractures of the pelvis or hips. Consider CT pelvis examination as clinically appropriate Reviewed, dictated and finalized at location A. DENT CAREGIVER IMPRESSION: Prominent diffuse osteopenia Status post posterior lumbar spinal fusion Transitional lumbosacral vertebra No apparent recent pelvic or right hip fracture or dislocation The prominent diffuse osteopenia may obscure nondisplaced or insufficiency frac tures of the pelvis or hips. Consider CT pelvis examination as clinically appro priate
[2021-03-25 18:20] VITALS: BP 133/97; PULSE 95; RESP 18; TEMP 36.8; O2SAT 98
--- NOTE | 2021-03-25 19:08 | ED.FALL ---
HPI - Fall General Chief Complaint: Fall <Richi Thomas MD - Last Filed: 03/26/21 06:34> Stated Complaint: FALL <Richi Thomas MD - Last Filed: 03/26/21 06:34> Time Seen by Provider: 03/25/21 18:29 <Richi Thomas MD - Last Filed: 03/26/21 06:34> History of Present Illness HPI Narrative: Patient is a 65-year-old male who presents the ER status post fall from standing. Reports he was getting out of the bathroom when he fell. He struck his left arm around humerus and his right knee laterally upon hitting the ground. He also reports striking his head. Denies loss of consciousness. Reports he had consumed 6 vodkas prior to the fall. Came in by EMS. Denies numbness or tingling in the affected extremities. Maintains range of motion in the left upper extremity right lower extremity <Richi Thomas MD - Last Filed: 03/26/21 06:34> Related Data Home Medications: Home Medications Medication Instructions Recorded Confirmed folic acid 1 mg PO DAILY 01/07/19 03/26/21 multivitamin 1 tablet PO DAILY 01/07/19 03/26/21 [id number] oil 1 cap PO BID 01/07/19 03/26/21 pyridoxine (vitamin B6) 100 mg PO DAILY 01/07/19 03/26/21 aspirin 81 mg tablet,delayed 81 mg PO DAILY 03/05/19 03/26/21 release blood sugar diagnostic, drum #51 each 03/05/19 03/26/21 cholecalciferol (vitamin D3) 25 1,000 unit PO DAILY 03/05/19 03/26/21 mcg (1,000 unit) capsule cyanocobalamin (vitamin B-12) 1,000 mcg IM MONTHLY 03/19/19 03/26/21 1,000 mcg/mL injection solution minocycline 100 mg PO DAILY 12/20/19 03/26/21 prednisone 5 mg PO DAILY 12/20/19 03/26/21 Novolog U-100 Insulin aspart See Rx Instructions .ROUTE .COMPLEX 06/27/20 03/26/21 gemfibrozil 600 mg PO BID 06/27/20 03/26/21 calcium carbonate 600 mg calcium 1,200 mg PO DAILY tablet 08/31/20 03/26/21 (1,500 mg) tablet gabapentin 600 mg tablet 600 mg PO BID 08/31/20 03/26/21 thiamine HCl (vitamin B1) 100 mg 100 mg PO DAILY 08/31/20 03/26/21 tablet tizanidine 2 mg capsule 2 mg PO Q6H PRN cap 08/31/20 03/26/21 methocarbamol 500 mg PO TID PRN 03/26/21 03/26/21 <Richi Thomas MD - Last Filed: 03/26/21 06:34> Allergies/Adverse Reactions: Allergies Allergy/AdvReac Type Severity Reaction Status Date / Time cefazolin Allergy Mild Rash Verified 03/25/21 18:25 Cephalosporins Allergy Mild Rash Verified 03/25/21 18:25 Penicillins Allergy Mild Rash Verified 03/25/21 18:25 <Richi Thomas MD - Last Filed: 03/26/21 06:34> Review of Systems Review of Systems: ROS unobtainable: Yes unobtainable due to medical condition (Intoxication) <Richi Thomas MD - Last Filed: 03/26/21 06:34> [facility] Past Medical History Medical History: Medical History (Updated 03/26/21 @ 02:30 by Ana Navarro DO) Chronic alcohol abuse Chronic kidney disease With kidney failure due to diabetes and hypertension. He was on hemodialysis for 1.5 years prior to getting any renal transplant 2007. His daughter donated her kidney. His creatinine with his transplant kidney is between 1 and 1.4 since 2019. 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 Type 2 diabetes mellitus with hyperglycemia, with long-term current use of insulin <Richi Thomas MD - Last Filed: 03/26/21 06:34> Surgical History Surgical History: Surgical History (Updated 03/26/21 @ 01:55 by Ana Navarro DO) Arteriovenous fistula for hemodialysis in place, primary Left forearm History of gastric bypass (~2012) History of total right knee replacement X2 Renal transplant recipient (~2007) S/P tonsillectomy and adenoidectomy Status post open reduction with internal fixation of fracture Right tibial fracture Status post open reductio
[2021-03-25 20:27] LABS: Basophils Percent Auto 0.1 % (0.2-1.2); Eosinophils Percent Auto 0.1 % (0-4.4); Immature Granulocyte Absolute 0.16 K/mm3 (0.00-0.031); Lymphocytes Absolute Auto 1.14 K/mm3 (0.9-3.2); Lymphocytes Percent Auto 7.2 % (18.3-44.2); Mean Corpuscular HGB Conc 32.1 g/dl (32-36); Mean Corpuscular Hemoglobin 33.6 pg (26-34); Mean Corpuscular Volume 104.5 fl (80-100); Mean Platelet Volume 10.6 fl (7.4-10.4); Monocytes Absolute Auto 0.7 K/mm3 (0.1-0.6); Monocytes Percent Auto 4.5 % (2.6-8.5); Neutrophils Absolute Auto 13.8 K/mm3 (1.3-6.7); Neutrophils Percent Auto 87.1 % (45.5-73.1); Platelet Count Result 245 k/mm3 (150-375); Red Blood Count 2.68 M/mm3 (4.6-6.20); Red Cell Distribution Width 13.9 % (11.5-14.5); White Blood Count 15.8 K/mm3 (4.5-10.0)
[2021-03-25 20:36] LABS: INR 1.3; Prothrombin Time 15.6 Seconds (11.1-14.7)
[2021-03-25 20:37] LABS: Partial Thromboplastin Time 34.8 SECONDS (22.3-36.8)
[2021-03-25 20:50] LABS: Ethanol 266 mg/dL (<10)
[2021-03-25 20:54] LABS: Alanine Aminotransferase 16 U/L (4-50); Albumin Level 3.3 g/dL (3.5-5.1); Alkaline Phosphatase 269 U/L (38-126); Anion Gap 9 mmol/L (8-16); Aspartate Amino Transferase 31 U/L (17-59); Bilirubin,Total 0.3 mg/dL (0.2-1.3); Blood Urea Nitrogen 16 mg/dL (9-20); Calcium 8.8 mg/dL (8.4-10.2); Carbon Dioxide 17 mmol/L (22-30); Chloride 105 mmol/L (98-107); Estimated CRCL calculation 50 ml/min; Estimated Glomerular Filt Rate 41; Glucose 194 mg/dL (65-110); Potassium 6.5 mmol/L (3.4-5.0); Sodium 131 mmol/L (137-145)
[2021-03-25] MEDS: INSULIN HUMAN REGULAR (*BKC) 100 UNITS/ML 10 UNITS IV PUSH (21:04)
[2021-03-25] MEDS: SODIUM CHLORIDE 0.9% IV 1,000 ML 999 ML IV CONT (21:05)
[2021-03-25] MEDS: DEXTROSE 50% 25 GM/50 ML SYRINGE IV PUSH (21:05)
--- NOTE | 2021-03-25 21:21 | ECG_ITS ---
Measurements Intervals [place] Rate: 103 P: 95 VT: 167 QRS: -7 QRSD: 73 T: 72 QT: 302 QTc: 396 Interpretive Statements SINUS TACHYCARDIA LOW QRS VOLTAGE- DIFFUSE LEADS CANNOT RULE OUT SEPTAL INFARCT, AGE INDETERMINATE CONSIDER INFERIOR INFARCT, AGE INDETERMINATE BASELINE ARTIFACT- V3-V6 ABNORMAL ECG Electronically Signed On 03-26-2021 6:27:54 NURSING INFORMATION SYSTEMS COORDINATOR by Dean Bro D.O.
[2021-03-25] MEDS: SODIUM BICARBONATE 8.4% 50 MEQ/50 ML SYRINGE IV PUSH (21:40)
[2021-03-25] MEDS: SODIUM POLYSTYRENE SULFONONATE 15 GM/60 ML BTL PO (21:41)
[2021-03-25 23:26] LABS: Glucose Point of Care 228 mg/dl (65-105)
[2021-03-25 23:48] VITALS: BP 122/71; PULSE 103; RESP 18; O2SAT 97
--- NOTE | 2021-03-25 23:51 | PM.IMHP ---
H&P: HPI History of Present Illness Date/Time: 03/25/21 22:51 Chief Complaint: Fall Narrative: 65-year-old male with complex past medical history including alcohol abuse, diabetes, hypertension, chronic kidney disease status post renal transplant 2007 who presented to the ER via private vehicle after having fall. The patient reports that he had taken a couple of muscle relaxers and drink about 6 alcoholic beverages. He then ambulated to the bathroom with his Rollator. When he every to leave the bathroom he was trended back out of the bathroom when he fell. He denied striking his head however patient has a large bruise to the right forehead. He denies loss of consciousness. He denies headache. His when he fell he did injure his left posterior triceps region with a large deep skin tear. He also lacerated his right lateral knee. Evidently when the patient arrived to the ER in his private vehicle he started cursing at the staff because they would not lift him directly from the car. The stated that it took 2 people to put the patient in the car to begin with. He reports that his last hemoglobin A1c was 5.1. He reports he does not check his glucoses very often. His glucoses on arrival to the ER were elevated to 228. He denies any nausea or vomiting. He has not had any chest pain or shortness of breath. He has not had any hematochezia or melena. He denies any abdominal pain. The patient reports that his skin is very thin due to history of chronic steroid use for immunosuppression. He reports that he bruises all the time. He is on 81 mg aspirin a day but does not take any other blood thinners. He denies any change in urinary frequency she has not had any hematuria. He received his renal transplant at [place] [facility] in sees Nephrology there. Labs on admission to hospital demonstrated potassium of 6.5. The patient reports that he no longer takes spironolactone due to a prior issue with hyperkalemia. On arrival to the ER patient was acutely intoxicated with alcohol with alcohol level of 266. When as patient alcohol use he states that he does not drink alcohol heavily. He thought that the amount of alcohol he drinks today was not excessive. He reports that he does not measure out how much alcohol he puts in each drink with sounds like he uses a generous amount of vodka mixed with lemonade. He drinks this amount of alcohol approximately 2 to 3 times a week. He reports that in 2009 he was diagnosed with alcoholic cirrhosis after a heavy drinking binge during the weekend at the [employer]. Given his description I suspect he actually was diagnosed with alcoholic hepatitis. When I discussed the possibility of femoral access for fluids, medication administration and lab draws the patient was cussing and stated that he would leave the hospital against medical advice. He was upset that her would not place a internal jugular access but given the patient had had prior multiple prior dialysis catheters in the neck and chest area at did not feel that was the best course of action for the short-term. Patient became angry with me. The patient again threatened to leave against medical advice however, lab was able to obtain a venous draw all after my discussion with the patient. The patient was found to be still acutely intoxicated with alcohol level of 175. The patient cannot leave the hospital against medical advice until his alcohol level is below legal limit. Patient also has continued active bleeding of the wound to his posterior left tricep and has blood through the bandage. Nursing staff had just 3 bandage the wound prior to july repeat evaluation. In the ER the patient's laceration to his lateral right knee was sutured. However portion of the laceration remains open is they were unable to achieve closure of laceration margins due to the patient's thin skin. ER staff reports that the sutures were pulling through the patient to skin. He has a wound noted to the great toe on the
[2021-03-26] VITALS (14 sets, daily range): BP systolic 98–166; BP diastolic 62–88; PULSE 103–119; RESP 18–20; TEMP 36.1–37.8; O2SAT 97–100
[2021-03-26 01:28] LABS: Anion Gap 13 mmol/L (8-16); Blood Urea Nitrogen 17 mg/dL (9-20); Carbon Dioxide 14 mmol/L (22-30); Chloride 107 mmol/L (98-107); Estimated CRCL calculation 50 ml/min; Estimated Glomerular Filt Rate 41; Glucose 183 mg/dL (65-110); Potassium 6.2 mmol/L (3.4-5.0); Sodium 134 mmol/L (137-145)
[2021-03-26 01:48] LABS: Ethanol 175 mg/dL (<10)
[2021-03-26] MEDS: HYDROcodone/acetaminophen (*CRX) 5-325 MG TABLET 1 TAB PO ×4 (03:04→20:37)
--- NOTE | 2021-03-26 03:50 | ADMGEN ---
This patient, Abhilash Jesus, was admitted to IMU Room 201-01. Patient/family oriented to hospital policies and general routines including ID bracelet, bed and alarms, visiting hours, pain management, procedures, bathroom and other care routines, personal items, smoking policy, room service/diet, and visiting hours. Information on how to activate the Rapid Response Team has been discussed. Patient/Family are encouraged to report perceived risks to care and to ask questions if they do not understand what they are told or what they should do.
[2021-03-26] MEDS: THIAMINE HCL 100 MG TABLET PO (08:04)
[2021-03-26] MEDS: SODIUM BICARBONATE TAB 650 MG TABLET PO ×2 (08:04→17:44)
[2021-03-26] MEDS: PROMETHAZINE HCL 25 MG/ML AMPUL 12.5 MG IV PUSH (08:08)
--- NOTE | 2021-03-26 08:42 | PCOTNOTE ---
Attempted to see pt. for evaluation. Pt. refused d/t pain, and believes he may have fx that has not been identified yet. Following up with hospitalist.
[2021-03-26] MEDS: gemfibroziL 600 MG TABLET PO ×2 (09:47→17:46)
[2021-03-26] MEDS: CALCIUM CARBONATE (OSCAL) 500 MG TABLET 1000 MG PO (09:47)
[2021-03-26] MEDS: GABAPENTIN 300 MG CAPSULE 600 MG PO (09:48)
[2021-03-26] MEDS: PANTOPRAZOLE 40 MG TABLET PO (09:48)
[2021-03-26] MEDS: predniSONE 5 MG TABLET PO (09:48)
[2021-03-26] MEDS: methocarbamoL 500 MG TABLET PO (09:48)
[2021-03-26] MEDS: MULTIVITAMINS THERAPEUTIC TAB (*BKC) 1 TABLET PO (09:48)
[2021-03-26] MEDS: CHOLECALCIFEROL 1,000 UNITS TABLET 1000 UNITS PO (09:49)
[2021-03-26] MEDS: ASPIRIN 81 MG ENTERIC TABLET PO (09:49)
[2021-03-26] MEDS: FOLIC ACID 1 MG TABLET PO (09:49)
[2021-03-26] MEDS: AZELASTINE HCL NASAL 0.1% 137 MCG/SPR 30 ML BTL 1 SPRAY NASAL ×2 (09:50→20:43)
[2021-03-26 09:59] LABS: Hematocrit 25.7 % (42.0-52.0); Mean Corpuscular HGB Conc 31.1 g/dl (32-36); Mean Corpuscular Hemoglobin 33.2 pg (26-34); Mean Corpuscular Volume 106.6 fl (80-100); Mean Platelet Volume 10.9 fl (7.4-10.4); Platelet Count Result 217 k/mm3 (150-375); Red Blood Count 2.41 M/mm3 (4.6-6.20); White Blood Count 18.6 K/mm3 (4.5-10.0)
--- NOTE | 2021-03-26 10:11 | ECG_ITS ---
Measurements Intervals [place] Rate: 113 P: 71 LA: 171 QRS: -16 QRSD: 73 T: 73 QT: 287 QTc: 394 Interpretive Statements SINUS TACHYCARDIA LOW QRS VOLTAGE- DIFFUSE LEADS CANNOT RULE OUT SEPTAL INFARCT, AGE INDETERMINATE INFERIOR INFARCT, AGE INDETERMINATE ABNORMAL ECG Electronically Signed On 03-26-2021 10:55:18 GREEN END DEPARTMENT SUPERVISOR by Dean Bro D.O.
[2021-03-26 10:16] LABS: Anion Gap 10 mmol/L (8-16); Blood Urea Nitrogen 18 mg/dL (9-20); Calcium 8.6 mg/dL (8.4-10.2); Carbon Dioxide 15 mmol/L (22-30); Chloride 106 mmol/L (98-107); Estimated CRCL calculation 37 ml/min; Estimated Glomerular Filt Rate 41; Glucose 139 mg/dL (65-110); Potassium 6.3 mmol/L (3.4-5.0); Sodium 131 mmol/L (137-145)
--- NOTE | 2021-03-26 10:51 | PM.IMPN ---
Progress Note: A&P Assessment and Plan (1) Acute hyperkalemia: Code(s): E87.5 - Hyperkalemia Status: Acute Assessment and Plan: Patient does not have IV access stat consult for surgery Give Kayexalate Give IV fluid Nephrology was consulted Repeat potassium level in 4 hours (2) Arm wound: Qualifiers: Encounter type: initial encounter Laterality: left Qualified Code(s): S41.102A - Unspecified open wound of left upper arm, initial encounter Code(s): S41.109A - Unspecified open wound of unspecified upper arm, initial encounter Status: Acute Assessment and Plan: Secondary to fall plastic surgeon was consulted (3) Laceration of leg: Qualifiers: Encounter type: initial encounter Laterality: right Qualified Code(s): S81.811A - Laceration without foreign body, right lower leg, initial encounter Code(s): S81.819A - Laceration without foreign body, unspecified lower leg, initial encounter Status: Acute Assessment and Plan: Pending surgery evaluation (4) Alcohol intoxication: Qualifiers: Complication of substance-induced condition: uncomplicated Qualified Code(s): F10.920 - Alcohol use, unspecified with intoxication, uncomplicated Code(s): F10.929 - Alcohol use, unspecified with intoxication, unspecified Status: Acute Assessment and Plan: Counseling monitor for alcohol withdrawal Vitamin replaced (5) Ulcer of toe: Qualifiers: Laterality: right Non-pressure ulcer stage: with fat layer exposed Qualified Code(s): L97.512 - Non-pressure chronic ulcer of other part of right foot with fat layer exposed Code(s): L97.509 - Non-pressure chronic ulcer of other part of unspecified foot with unspecified severity Status: Acute Assessment and Plan: Wound care consult (6) Fall: Qualifiers: Encounter type: initial encounter Qualified Code(s): W19.XXXA - Unspecified fall, initial encounter Code(s): W19.XXXA - Unspecified fall, initial encounter Status: Acute Assessment and Plan: PT OT eval (7) MANUEL (obstructive sleep apnea): Code(s): G47.33 - Obstructive sleep apnea (adult) (pediatric) Status: Acute Assessment and Plan: Continue home treatment (8) Chronic kidney disease, stage 3 unspecified: Code(s): N18.30 - Chronic kidney disease, stage 3 unspecified Status: Acute Assessment and Plan: History of kidney transplant on tacrolimus patient also on Bactrim DC Bactrim because of hyperkalemia Nephrology consult (9) Diabetes: Qualifiers: Diabetes mellitus type: type 2 Diabetes mellitus termite exterminator insulin use: with skilled nursing use Diabetes mellitus complication status: with kidney complications Diabetes mellitus complication detail: with chronic kidney disease Chronic kidney disease stage: unspecified stage Qualified Code(s): E11.22 - Type 2 diabetes mellitus with diabetic chronic kidney disease; Z79.4 - termite control service representative (current) use of insulin Code(s): E11.9 - Type 2 diabetes mellitus without complications Status: Acute Assessment and Plan: Insulin sliding scale I added Lantus (10) Cirrhosis of liver with ascites: Code(s): K74.60 - Unspecified cirrhosis of liver; R18.8 - Other ascites Status: Acute Assessment and Plan: Avoid hepatotoxic medication Monitor closely Check ammonia level (11) Chronic pain disorder: Code(s): G89.4 - Chronic pain syndrome Status: Acute Assessment and Plan: Complicated decision regarding pain medication as patient has chronic pain syndrome and history of liver failure and kidney failure (12) Chronic low back pain with sciatica: Code(s): M54.40 - Lumbago with sciatica, unspecified side; G89.29 - Other chronic pain Status: Acute Assessment and Plan: Pain control (13) Benign essential hypertension: Code(s): I10 -
--- NOTE | 2021-03-26 11:34 | PM.CNGS ---
Assessment and Plan Assessment and plan (1) Acute hyperkalemia: Code(s): E87.5 - Hyperkalemia Status: Acute Assessment and Plan: Patient needing IV access for treatment of hyperkalemia. Hospitalist is requesting central line placement. Description of the procedure, risks, and benefits were discussed with the patient in detail. All questions were answered. Dr. Knox will plan to proceed with IJ central line placement at the bedside today. Will get a chest x-ray following procedure to confirm placement. (2) Leukocytosis: Code(s): D72.829 - Elevated white blood cell count, unspecified Status: Acute Assessment and Plan: Also being treated for fever and leukocytosis with IV antibiotics. (3) Laceration of leg: Qualifiers: Encounter type: initial encounter Laterality: right Qualified Code(s): S81.811A - Laceration without foreign body, right lower leg, initial encounter Code(s): S81.819A - Laceration without foreign body, unspecified lower leg, initial encounter Status: Acute (4) Arm wound: Qualifiers: Encounter type: initial encounter Laterality: left Qualified Code(s): S41.102A - Unspecified open wound of left upper arm, initial encounter Code(s): S41.109A - Unspecified open wound of unspecified upper arm, initial encounter Status: Acute (5) Fall: Qualifiers: Encounter type: initial encounter Qualified Code(s): W19.XXXA - Unspecified fall, initial encounter Code(s): W19.XXXA - Unspecified fall, initial encounter Status: Acute (6) Alcohol intoxication: Qualifiers: Complication of substance-induced condition: uncomplicated Qualified Code(s): F10.920 - Alcohol use, unspecified with intoxication, uncomplicated Code(s): F10.929 - Alcohol use, unspecified with intoxication, unspecified Status: Acute (7) Renal transplant recipient: Code(s): Z94.0 - Kidney transplant status Status: Acute (8) Immunosuppression due to drug therapy: Code(s): Z79.899 - Other director long term care (current) drug therapy Status: Acute (9) Alcoholic cirrhosis of liver with ascites: Code(s): K70.31 - Alcoholic cirrhosis of liver with ascites Status: Acute (10) Diabetes type 2, uncontrolled: Qualifiers: Glycemic state: with hyperglycemia Qualified Code(s): E11.65 - Type 2 diabetes mellitus with hyperglycemia Code(s): E11.65 - Type 2 diabetes mellitus with hyperglycemia Status: Acute Additional Plan I have discussed the patient's case and plan of care with Dr. Knox. History of Present Illness Consult details Consult date: 03/26/21 Reason for consult: central line Requesting physician: Jaleel Collins M.A., MD Narrative: This is a 65-year-old male with history of multiple medical problems, who presents to the emergency department status post a fall at home with alcohol intoxication. He has a history of alcohol abuse, diabetes, hypertension, and chronic kidney disease status post renal transplant in 2007. The patient had taken muscle relaxers and had a few alcoholic beverages prior to his fall. In the ER, he was found to have multiple lacerations and wounds to his left arm and right knee. He was found to have a potassium of 6.5, sodium 131, creatinine 1.7. His white blood cell count was 15,000 and he has a low-grade fever this morning of 100.1? F. He is tachycardic with a heart rate of 113 and last blood pressure was 98/70. The patient has poor vascular access and there have been multiple attempts to maintain a peripheral IV. They have contacted the venous access nurse who is unable to place a peripheral IV due to his poor vasculature. He is not a candidate for a PICC line being a renal patient. He also has a left arm fistula. The hospitalist has consulted our service requesting central line placement due to his poor vascular access. Patient is now seen in the
[2021-03-26 11:52] LABS: Influenza A QL RT-PCR Negative (Negative); Influenza B QL RT-PCR Negative (Negative); SARS-CoV-2 RNA PCR Negative
--- NOTE | 2021-03-26 12:29 | P.OP_ITS ---
Procedure Note - Detailed Date of Procedure 03/26/21 Pre-op Diagnosis arm wound, leg laceration, hyperkalemia, alcohol intoxication Post-op Diagnosis same Procedure Performed Left internal jugular central line placement with ultrasound guidance Surgeon Reese Knox, DO Anesthesia local (1% lidocaine) Indications This is a 65-year-old man who presented with a fall with multiple lacerations alcohol intoxication. He is noted to be hyperkalemic and is in need of IV access. He has poor peripheral IV access and is needing a central line placed urgently. Findings I attempted right internal jugular access but the vein appeared very small and sclerotic. I then was able to easily identify the left internal jugular vein with ultrasound. This vessel appeared to be normal sized and was easily accessed under ultrasound guidance with an 18 gauge introducer needle. The guidewire was then advanced without difficulty and the catheter was placed. Chest x-ray is pending to confirm placement. Description of Procedure Procedure as well as risks, benefits, and alternatives were discussed with the patient. Patient agreed to proceed. He was placed in supine position in his hospital bed and then was placed in Trendelenburg. His neck area was prepped and draped in sterile fashion using chlorhexidine prep. The right side was attempted 1st. I visualized the right internal jugular vein with the ultrasound and then anesthetized directly over this area with 1% lidocaine. The 18 gauge introducer needle was advanced and I was able to get a small flash of blood, but was not able to maintain access to advance the guidewire. I then removed the needle in this location applied pressure. I then moved my attention over to the left side. The left neck was assessed with the ultrasound and the left internal jugular vein was easily identified. The skin overlying this was anesthetized with 1% lidocaine. An 18 gauge introducer needle was advanced under ultrasound guidance directly into the lumen of the left internal jugular vein. Dark nonpulsatile blood was aspirated. A 0.035 in guidewire was then advanced through the needle. The guidewire advanced smoothly. The needle was then withdrawn leaving the guidewire in place. A small castillo incision was made with an 11 blade scalpel at the insertion site. The blue dilator was then advanced over the guidewire to dilate the vessel. The triple-lumen catheter was then advanced over the guidewire until it was in place at 16 cm. The guidewire was then removed and all 3 lumens were aspirated and flushed with sterile saline. All 3 lumens function with ease. The catheter was then secured in place using 3-0 silk simple interrupted sutures. A Biopatch was then applied followed by the Tegaderm dressing. Patient was then sat up in bed and x-ray was ordered to confirm placement. Implants 7 [place] 16 cm triple-lumen catheter Estimated Blood Loss 2 Complications No immediate complications Condition stable Disposition no change
[2021-03-26] MEDS: SODIUM CHLORIDE 0.9% IV 1,000 ML 999 ML IV CONT (12:45)
[2021-03-26] MEDS: SODIUM POLYSTYRENE SULFONONATE 15 GM/60 ML BTL 30 GM PO ×2 (12:45→15:44)
[2021-03-26] MEDS: SODIUM CHLORIDE 0.9% IV 1,000 ML 100 ML IV CONT (12:46)
[2021-03-26] MEDS: ERTAPENEM 1 GM/NS 50 ML 1 GM/50 ML BAG IVPB (12:46)
[2021-03-26] MEDS: MINOCYCLINE HCL 50 MG CAPSULE 100 MG PO (12:48)
--- NOTE | 2021-03-26 12:57 | WPDCN ---
Assessment and Plan Assessment and plan (1) Laceration of left upper arm: Onset Date: 03/2021 Code(s): S41.112A - Laceration without foreign body of left upper arm, initial encounter Status: Acute Assessment and Plan: Debride and repair in the OR today. HPI Data of Consult Date/Time: 03/26/21 12:57 Requesting Physician: Ana Navarro DO Primary Care Provider: Vinny Pedraza DO Consult Narrative Narrative: Abhilash Jesus is a 65 year old male renal transplant diabetic patient with obesity, alcoholism, chronic pain syndrome and other diagnoses. He fell at home last evening apparently had some alcoholic beverages. The fall occurred in his bathroom. He sustained the laceration of his left arm. This appears to be into the subcutaneous tissue which is thick. It does not appear to have involved muscle. He has the dialysis fistula in the left distal forearm. He is alert and cooperative at this time. He complains of pain in his back and right knee. His white count on admission is over 18,000 with no other obvious reason for that then the recent trauma. A central venous access line was put in his left neck by Dr. Dong just before I saw him today. The patient is NPO. He consents to this surgery to repair the arm. He has been scheduled with the OR for 1600 today. Review of Systems Review of Systems: All systems reviewed & are unremarkable except as noted in HPI and below PMFSH Past Medical History Medical History Chronic alcohol abuse Chronic kidney disease With kidney failure due to diabetes and hypertension. He was on hemodialysis for 1.5 years prior to getting any renal transplant 2007. His daughter donated her kidney. His creatinine with his transplant kidney is between 1 and 1.4 since 2019. 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 Type 2 diabetes mellitus with hyperglycemia, with long-term current use of insulin Surgical History Surgical History Arteriovenous fistula for hemodialysis in place, primary Left forearm History of gastric bypass (~2012) History of total right knee replacement X2 Renal transplant recipient (~2007) S/P tonsillectomy and adenoidectomy Status post open reduction with internal fixation of fracture Right tibial fracture Status post open reduction with internal fixation of fracture Right hip fracture Family History Family History Grandparent Acute myocardial infarction Mother Family history of chronic obstructive pulmonary disease Family history of lung cancer Father Carcinoma of colon Hypertension Social History Social History Social History: Patient lives at home with his of 16 years. He smoked 1 pack of cigarettes per day for 40 years but quit smoking in 2010. He drinks 6 vodka and lemonade 2 or 3 times a week. He denies a history of illicit substance use. 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 Primary care physician: Dr. Vinny Pedraza Code status: Full code Surrogate decision maker: Smoking packs per day: 1 Smoking cigarettes per day: 20.0 Years smoked: 30 Smoking pack-years: 30.00 Smoking status: Former smoker Tobacco type: cigarettes Alcohol intake: current Drinks per week: 16 Substance use: never Substance use type: does not use Living arrangements: with family Gender identity (if verbalized by the patient): Male Spiritual care concerns: No Meds Home Medications and Allergies Home Medications Med
[2021-03-26 12:59] LABS: Glucose Point of Care 172 mg/dl (65-105)
--- NOTE | 2021-03-26 13:15 | PHAR ---
The patient's home med of Tacrolimus 1mg has been verfied.
[2021-03-26] MEDS: MORPHINE SULFATE (*CRX) 2 MG/ML INJ IV PUSH ×3 (13:16→22:22)
[2021-03-26] MEDS: IPRATROPIUM NASAL SPRAY 0.03% 15 ML BOTTLE 2 SPRAY NASAL ×2 (13:17→20:42)
[2021-03-26] MEDS: CENTRAL LINE FLUSH 10 ML IV PUSH ×2 (13:19→21:44)
--- NOTE | 2021-03-26 13:24 | PCOTNOTE ---
D/C orders for therapy evaluation. Spoke Dr. Collins, is agreeable the pt. is not currently appropriate for therapy services d/t condition. reports he will reorder OT/PT when pt. can participate.
--- NOTE | 2021-03-26 13:49 | PCPTNOTE ---
D/C orders for therapy evaluation. Per OT, Spoke Dr. Collins is agreeable the pt. is not currently appropriate for therapy services d/t condition. reports he will reorder PT when pt. can participate.
[2021-03-26 13:57] LABS: Creatine Kinase 101 U/L (55-170)
[2021-03-26 13:58] LABS: Magnesium 2.1 mg/dL (1.6-2.3)
[2021-03-26 14:00] LABS: Potassium 6.6 mmol/L (3.4-5.0)
[2021-03-26] MEDS: INSULIN HUMAN REGULAR (*BKC) 100 UNITS/ML 10 UNITS IV PUSH (14:54)
[2021-03-26] MEDS: DEXTROSE 50% 25 GM/50 ML SYRINGE IV PUSH (14:56)
[2021-03-26] MEDS: SODIUM BICARBONATE 8.4% 50 MEQ/50 ML SYRINGE IV PUSH (14:56)
[2021-03-26] MEDS: LACTULOSE 20 GM/30 ML UDC 30 GM PO (15:44)
--- NOTE | 2021-03-26 16:26 | PM.CNNEP ---
Assessment and Plan Assessment and plan (1) Chronic kidney disease: Qualifiers: Chronic kidney disease stage: stage 3 (moderate) Chronic kidney disease stage 3 subtype: stage 3b (GFR 30-44) Qualified Code(s): N18.32 - Chronic kidney disease, stage 3b Code(s): N18.9 - Chronic kidney disease, unspecified Status: Acute Assessment and Plan: The patient has chronic kidney disease. He had end-stage renal disease starting dialysis in the 1999s and got a kidney transplant in 2007. He has a reasonably good creatinine of 1.7 which gives him CKD stage IIIB. This seems relatively stable. It was 1.4 back in 2019. He is on tacrolimus and prednisone. (2) Fall: Qualifiers: Encounter type: initial encounter Qualified Code(s): W19.XXXA - Unspecified fall, initial encounter Code(s): W19.XXXA - Unspecified fall, initial encounter Status: Acute Assessment and Plan: The patient falls frequently. Usually this is related to his drinking. However he does have asterixis on exam and when he falls his knees buckle. The patient is on gabapentin. I asked him why he is on this and it is because he has neuropathy. However he will only has numb feet. He does not have hypesthesia pain tingling or burning. So he probably does not really need the gabapentin. Even if he does we can try something different like amitriptyline to treat any symptoms that appear. The gabapentin could be causing his asterixis. He of course also has a history of cirrhosis. His liver enzymes are okay, his bilirubin is okay, and his platelet count is okay so there are no strong indications of that. I will check an ammonia level just to be sure. Just the same I advised him to cut back or stop drinking. He says he will. (3) Acute hyperkalemia: Code(s): E87.5 - Hyperkalemia Status: Acute Assessment and Plan: The patient has a high potassium. Has been high before in the chart spite however he says that lately his potassiums been okay on his monthly blood draws for his transplant. Will check a CPK in case he has rhabdomyolysis. Will check a tacrolimus Level in case this is high. Will check stool guaiacs in case he has some GI bleeding. Will give lactulose to get his bowels moving and Kayexalate to keep his potassium down. Another potassium is going to be checked in a few hours. (4) Asterixis: Code(s): R27.8 - Other lack of coordination Status: Acute Assessment and Plan: See discussion above about Neurontin versus liver disease. (5) MANUEL (obstructive sleep apnea): Code(s): G47.33 - Obstructive sleep apnea (adult) (pediatric) Status: Acute History of Present Illness Reason for Consult Consult date: 03/26/21 Chief Complaint Chief complaint: arm wound, leg laceration, hyperkalemia, alcohol i History of Present Illness Narrative: Radhames is a very pleasant 65-year-old gentleman has multiple medical problems including end-stage renal disease due to diabetes and hypertension, status post kidney transplant 2007, alcohol abuse, chronic low back pain, diabetic retinopathy, diabetic neuropathy on gabapentin, obstructive sleep apnea. The patient came in the hospital because he fell yesterday. He had been drinking and says that his knees collapse from underneath him. He did a Mata fall and fell on his head left arm and his rear end. He has pain in all those areas. He says that he did not have syncope. He came to the emergency room. He was evaluated. If was found to have lacerations. Those that could be sewn up were sewn up. Has thin skin though so some of these were not completely closed. CT scan showed no intracranial findings. Knee and humoral x-rays were negative. His potassium was found to be elevated. He receive has received Kayexalate but has not really had a bowel movement yet. I ordered a 3rd dose and also some lactulose to get him going. The patient has not had any
[2021-03-26 16:27] LABS: Add Urine Microscopic? YES; Appearance Urine Clear (Clear); Bilirubin Urine Negative (Negative); Blood Urine Negative (Negative); Color Urine Yellow (Yellow); Glucose Urine UA Negative (Negative); Ketones Urine Negative (Negative); Leukocyte Esterase Ur 1+ LEU/UL (Negative); Mucus Urine Rare /lpf; Nitrate Urine Negative (Negative); Protein Urine Negative (Negative); Specific Grav Ur 1.014 (1.001-1.035); Urobilinogen Urine Negative mg/dL (<2.0); WBC Urine 16-20 /hpf
[2021-03-26 16:52] LABS: Creatinine Urine 86.4 mg/dL; Total Protein Urine Random 20 mg/dL
[2021-03-26 16:58] LABS: Glucose Point of Care 95 mg/dl (65-105)
[2021-03-26 17:04] LABS: Potassium Urine Random 41.2 meq/L; Sodium Urine Random 55 meq/L
[2021-03-26] MEDS: OMEGA 3 POLYUNSAT FATTY ACIDS 1 GM CAP PO (17:45)
[2021-03-26] MEDS: GABAPENTIN 100 MG CAPSULE 200 MG PO (18:00)
[2021-03-26 18:05] LABS: Potassium 5.4 mmol/L (3.4-5.0)
[2021-03-26 18:18] LABS: INR 1.9; Prothrombin Time 21.4 Seconds (11.1-14.7)
[2021-03-26 18:57] LABS: Hematocrit 21.1 % (42.0-52.0)
[2021-03-26 19:23] LABS: Creatine Kinase 92 U/L (55-170)
[2021-03-26 19:29] LABS: Iron 29 ug/dL (49-181)
[2021-03-26 19:37] LABS: IFOB Positive Control Positive; Immunochemical Fecal Occult Bl Negative (N)
[2021-03-26 19:43] LABS: Percent Iron Saturation 13 % (20-50)
[2021-03-26 21:13] LABS: Glucose Point of Care 166 mg/dl (65-105)
[2021-03-26 23:29] LABS: Glucose Point of Care 168 mg/dl (65-105)
[2021-03-26 23:59] LABS: Potassium 5.1 mmol/L (3.4-5.0)
[2021-03-27] VITALS (28 sets, daily range): BP systolic 106–148; BP diastolic 59–84; PULSE 71–128; RESP 14–22; TEMP 36.1–37.5; O2SAT 93–100
[2021-03-27 00:19] LABS: Hematocrit 18.3 % (42.0-52.0); Hemoglobin 5.9 g/dL (14.0-18.0)
[2021-03-27] MEDS: SODIUM CHLORIDE 0.9% IV 1,000 ML 100 ML IV CONT ×2 (01:20→15:29)
[2021-03-27] MEDS: HYDROcodone/acetaminophen (*CRX) 5-325 MG TABLET 1 TAB PO ×4 (02:40→20:45)
[2021-03-27] MEDS: SODIUM CHLORIDE 0.9% IV 250 ML 30 ML IV CONT (03:55)
[2021-03-27] MEDS: MORPHINE SULFATE (*CRX) 2 MG/ML INJ IV PUSH ×3 (04:27→17:26)
[2021-03-27] MEDS: CENTRAL LINE FLUSH 10 ML IV PUSH ×3 (06:05→22:20)
[2021-03-27] MEDS: MINOCYCLINE HCL 50 MG CAPSULE 100 MG PO (06:14)
[2021-03-27] MEDS: gemfibroziL 600 MG TABLET PO ×2 (06:14→17:28)
[2021-03-27 06:23] LABS: Potassium 4.9 mmol/L (3.4-5.0)
[2021-03-27 06:37] LABS: Hematocrit 19.8 % (42.0-52.0); Hemoglobin 6.4 g/dL (14.0-18.0)
--- NOTE | 2021-03-27 06:51 | PM.PNNEP ---
Progress Note: A&P Assessment and Plan (1) Chronic kidney disease: Qualifiers: Chronic kidney disease stage: stage 3 (moderate) Chronic kidney disease stage 3 subtype: stage 3b (GFR 30-44) Qualified Code(s): N18.32 - Chronic kidney disease, stage 3b Code(s): N18.9 - Chronic kidney disease, unspecified Status: Acute Assessment and Plan: The patient has chronic kidney disease. He had end-stage renal disease starting dialysis in the and got a kidney transplant in 2007. He has a reasonably good creatinine of 1.7 which gives him CKD stage IIIB. His hemoglobin is pending He is on tacrolimus and prednisone. (2) Fall: Qualifiers: Encounter type: initial encounter Qualified Code(s): W19.XXXA - Unspecified fall, initial encounter Code(s): W19.XXXA - Unspecified fall, initial encounter Status: Acute Assessment and Plan: The patient falls frequently. Asterixis may be contributing. Alcohol consumption is certainly the major factor. His gabapentin has been reduced so545ey twice a day. Will continue to wean this over the next few weeks until off as long as he does not have any neuropathy symptoms. (3) Acute hyperkalemia: Code(s): E87.5 - Hyperkalemia Status: Acute Assessment and Plan: Potassium is better. Last check it was down to 4.9. There is 1 pending for today (4) Asterixis: Code(s): R27.8 - Other lack of coordination Status: Acute Assessment and Plan: See discussion above about Neurontin versus liver disease. (5) MANUEL (obstructive sleep apnea): Code(s): G47.33 - Obstructive sleep apnea (adult) (pediatric) Status: Acute Subjective Date/time seen: 03/27/21 06:51 Interval history: Patient is alert. He is feeling better. He is still in some pain. He had bowel movements finally yesterday afternoon and overnight. These are brown. Review of Systems Cardiovascular: Cardiovascular: Reports no additional cardiovascular complaints Respiratory: Respiratory: Reports no additional respiratory complaints Gastrointestinal: Gastrointestinal: Reports no additional gastrointestinal complaints Genitourinary: Genitourinary: Reports no additional male genitourinary complaints Exam Narrative: WDWN in NAD skin no rash. Multiple contusions and bandages. head ncat lungs clear cor reg no rub abd BS+ nontender and soft ext no edema. Objective Data Vital Signs Vital Signs: Vital Signs - 24 hr 03/26/21 08:00 03/26/21 08:49 03/26/21 10:00 Temperature 37.8 C H Pulse Rate 113 H 113 H 112 H Pulse Rate [Apical] Respiratory Rate 20 20 Blood Pressure 98/70 L Pulse Oximetry 100 100 03/26/21 11:03 03/26/21 12:00 03/26/21 12:58 Temperature 36.1 C L Pulse Rate 103 H 115 H Pulse Rate [Apical] 105 H 103 H Respiratory Rate 20 20 Blood Pressure 128/62 Pulse Oximetry 100 100 03/26/21 14:00 03/26/21 16:00 03/26/21 16:36 Temperature 36.7 C Pulse Rate 113 H 112 H 117 H Pulse Rate [Apical] 112 H Respiratory Rate 20 20 Blood Pressure 120/84 Pulse Oximetry 100 100 03/26/21 18:00 03/26/21 20:00 03/26/21 22:00 Temperature Pulse Rate 119 H 112 H 108 H Pulse Rate [Apical] 112 H Respiratory Rate Blood Pressure Pulse Oximetry 03/27/21 00:00 03/27/21 00:03 03/27/21 03:59 Temperature 36.4 C 36.1 C L Pulse Rate 108 H 112 H 106 H Pulse Rate [Apical] 108 H Respiratory Rate 20 22 H Blood Pressure 106/59 L 135/68 Pulse Oximetry 98 93 03/27/21 04:12 03/27/21 05:12 03/27/21 06:12 Temperature 36.3 C L 36.4 C L 36.1 C L Pulse Rate 107 H 103 H 108 H Pulse Rate [Apical] Respiratory Rate 20 18 20 Blood Pressure 110/71 109/63 146/78 H Pulse Oximetry 96 93 100 Intake/Output Intake/Output: Intake & Output 03/24/21 03/25/21 03/26/21 03/27/21 23:59 23:59 23:59 23:59 Intake Total 1440 1000 Output Total 100 Balance 1340 1000 Med
[2021-03-27] MEDS: THIAMINE HCL 100 MG TABLET PO (08:04)
[2021-03-27] MEDS: SODIUM BICARBONATE TAB 650 MG TABLET PO ×2 (08:04→17:30)
[2021-03-27] MEDS: PYRIDOXINE HCL 50 MG TABLET 100 MG PO (08:04)
[2021-03-27] MEDS: ASPIRIN 81 MG ENTERIC TABLET PO (08:05)
[2021-03-27] MEDS: CHOLECALCIFEROL 1,000 UNITS TABLET 1000 UNITS PO (08:05)
[2021-03-27] MEDS: predniSONE 5 MG TABLET PO (08:05)
[2021-03-27] MEDS: PANTOPRAZOLE 40 MG TABLET PO (08:05)
[2021-03-27] MEDS: CALCIUM CARBONATE (OSCAL) 500 MG TABLET 1000 MG PO (08:06)
[2021-03-27] MEDS: MULTIVITAMINS THERAPEUTIC TAB (*BKC) 1 TABLET PO (08:07)
[2021-03-27] MEDS: GABAPENTIN 100 MG CAPSULE 200 MG PO ×2 (08:07→17:29)
[2021-03-27] MEDS: FOLIC ACID 1 MG TABLET PO (08:07)
[2021-03-27] MEDS: OMEGA 3 POLYUNSAT FATTY ACIDS 1 GM CAP PO ×2 (08:08→17:29)
[2021-03-27] MEDS: IPRATROPIUM NASAL SPRAY 0.03% 15 ML BOTTLE 2 SPRAY NASAL ×2 (08:09→20:47)
[2021-03-27] MEDS: AZELASTINE HCL NASAL 0.1% 137 MCG/SPR 30 ML BTL 1 SPRAY NASAL ×2 (08:10→20:48)
[2021-03-27 08:43] LABS: Glucose Point of Care 128 mg/dl (65-105)
--- NOTE | 2021-03-27 10:04 | WPDPN ---
Progress Note: A&P Assessment and Plan (1) Laceration of left upper arm: Onset Date: 03/2021 Code(s): S41.112A - Laceration without foreign body of left upper arm, initial encounter Status: Acute Assessment and Plan: Serum potassium has been normalized. Left arm wound stable. Needs surgical repair. Thoracic body fracture probably needs to be addressed to keep him out of pulmonary complications. Additional Plan Will schedule his left arm repair for tomorrow, Friday around noon in the OR. Time Spent With Patient Time with patient: less than 15 minutes Subjective Date/time seen: 03/27/21 10:04 Review of Systems Musculoskeletal: Comments: Complains of significant pain seemingly related to the T-7 vertebral body fracture that limits his ability to move in bed and to take deep inspiration. The relevent area on the back reveals some bruising and small skin scrape. Exam Skin: Other: 7x5 cm laceration of left medial arm exposing subcutaneous tissue but not impeding extension or flexion of the left arm. Not bleeding at this time. Nio evidence of infection. Partially sutured ( by ER .)laceration of the right lateral knee. Sutures intact. No bleeding. Not very painful. Two cm open superficial portion of this distally with serous drainage.Normal ROM of the knee he says,. Objective Data Vital Signs Vital Signs: Vital Signs - 24 hr 03/26/21 11:03 03/26/21 12:00 03/26/21 12:58 Temperature 96.9 F L Pulse Rate 103 H 115 H Pulse Rate [Apical] 105 H 103 H Respiratory Rate 20 20 Blood Pressure 128/62 Pulse Oximetry 100 100 03/26/21 14:00 03/26/21 16:00 03/26/21 16:36 Temperature 98.0 F Pulse Rate 113 H 112 H 117 H Pulse Rate [Apical] 112 H Respiratory Rate 20 20 Blood Pressure 120/84 Pulse Oximetry 100 100 03/26/21 18:00 03/26/21 20:00 03/26/21 22:00 Temperature Pulse Rate 119 H 112 H 108 H Pulse Rate [Apical] 112 H Respiratory Rate Blood Pressure Pulse Oximetry 03/27/21 00:00 03/27/21 00:03 03/27/21 02:00 Temperature 97.6 F Pulse Rate 108 H 112 H 108 H Pulse Rate [Apical] 108 H Respiratory Rate 20 Blood Pressure 106/59 L Pulse Oximetry 98 03/27/21 03:59 03/27/21 04:00 03/27/21 04:12 Temperature 97 F L 97.4 F L Pulse Rate 106 H 110 H 107 H Pulse Rate [Apical] 110 H Respiratory Rate 22 H 20 Blood Pressure 135/68 110/71 Pulse Oximetry 93 96 03/27/21 05:12 03/27/21 06:00 03/27/21 06:12 Temperature 97.5 F L 97.0 F L Pulse Rate 103 H 106 H 108 H Pulse Rate [Apical] Respiratory Rate 18 20 Blood Pressure 109/63 146/78 H Pulse Oximetry 93 100 03/27/21 07:12 03/27/21 08:00 03/27/21 08:01 Temperature 97.0 F L 98.1 F Pulse Rate 111 H 108 H 108 H Pulse Rate [Apical] 108 H Respiratory Rate 20 18 18 Blood Pressure 122/63 114/68 Pulse Oximetry 100 94 94 03/27/21 08:25 03/27/21 08:39 03/27/21 08:40 Temperature 97.6 F 97.3 F L 97.3 F L Pulse Rate 108 H 106 H 106 H Pulse Rate [Apical] Respiratory Rate 14 16 16 Blood Pressure 148/77 H 136/74 136/74 Pulse Oximetry 99 98 98 03/27/21 09:35 Temperature 98.3 F Pulse Rate 110 H Pulse Rate [Apical] Respiratory Rate 18 Blood Pressure 126/71 Pulse Oximetry 95 Intake/Output Intake/Output: Intake & Output 03/24/21 03/25/21 03/26/21 03/27/21 23:59 23:59 23:59 23:59 Intake Total 1440 1351 Output Total 100 400 Balance 1340 951 Meds/Results Medications: Active Medications Generic Name Dose Route Start Last Admin Trade Name Freq PRN Reason Stop Dose Admin Acetaminophen 650 mg 03/25/21 21:24 Acetaminophen 325 Mg Tablet PO Q4H PRN Mild Pain (1-3) or Fever Hydrocodone Bitart/Acetaminophen 1 tab 03/25/21 21:24 03/27/21 08:03 Hydrocodone/Acetaminophen (*Crx) 5-325 Mg Tablet PO 1 tab Q4H PRN Administration Pain Rated 4-6 Aspirin 81 mg 03/26/21 09:00 03/27/21 08:05 Aspirin 81 Mg Enteric Tablet PO
--- NOTE | 2021-03-27 11:00 | PCDIET ---
Dietitian Consult for ETOH Abuse. Spoke with patient today, Plans for surgery tomorrow. Potassium has been elevated. Kidney Transplant history 08. States to also having a Gastric Bypass 2012, lost 210 ibs. Current diet order: heart healthy/Low K. Discussed diet supplements with patient today. Refused supplements, states they give him diarrhea. PO intake encouraged. Folic Acid, Thiamine and MVI started. Agree with diet orders. No further nutritional interventions needed at this time.
[2021-03-27] MEDS: LIDOCAINE 5% PATCH 3 PATCH TRANSDERM (11:18)
[2021-03-27] MEDS: ERTAPENEM 1 GM/NS 50 ML 1 GM/50 ML BAG IVPB (11:19)
[2021-03-27] MEDS: SILVER NITRATE 1 EA BANDAGE (AQUACEL-AG)(*BKC) 1 EACH TOPICAL (11:21)
[2021-03-27] MEDS: CYCLOBENZAPRINE HCL 5 MG TABLET PO (11:54)
[2021-03-27 12:06] LABS: Glucose Point of Care 140 mg/dl (65-105)
[2021-03-27 12:33] LABS: Hematocrit 26.6 % (42.0-52.0); Hemoglobin 8.8 g/dL (14.0-18.0)
--- NOTE | 2021-03-27 14:34 | PM.IMPN ---
Progress Note: A&P Assessment and Plan (1) Acute hyperkalemia: Code(s): E87.5 - Hyperkalemia Status: Acute Assessment and Plan: Patient does not have IV access stat consult for surgery Give Kayexalate Give IV fluid Nephrology was consulted Repeat potassium level in 4 hours 03/27/2021 interval history: patient status post kidney transplant on immunosuppression therapy presented emergency depart after he failed getting out of the bathroom patient states he had drank 6 Vodkas, he struck his left arm and has a laceration also concern that he may have hit his head CT scan of the head is negative for any acute injury, patient had had x-ray of the head and humerus without any acute bony injury, today patient main complaint is back pain will give the patient Lidoderm patches and cyclobenzaprine, will have a PT OT evaluate the patient. patient seen by Nephrology patient has stage 3 chronic kidney disease, we have placed the patient under CIWA protocol Librium as needed. (2) Arm wound: Qualifiers: Encounter type: initial encounter Laterality: left Qualified Code(s): S41.102A - Unspecified open wound of left upper arm, initial encounter Code(s): S41.109A - Unspecified open wound of unspecified upper arm, initial encounter Status: Acute Assessment and Plan: Secondary to fall plastic surgeon was consulted (3) Laceration of leg: Qualifiers: Encounter type: initial encounter Laterality: right Qualified Code(s): S81.811A - Laceration without foreign body, right lower leg, initial encounter Code(s): S81.819A - Laceration without foreign body, unspecified lower leg, initial encounter Status: Acute Assessment and Plan: Pending surgery evaluation (4) Alcohol intoxication: Qualifiers: Complication of substance-induced condition: uncomplicated Qualified Code(s): F10.920 - Alcohol use, unspecified with intoxication, uncomplicated Code(s): F10.929 - Alcohol use, unspecified with intoxication, unspecified Status: Acute Assessment and Plan: Counseling monitor for alcohol withdrawal Vitamin replaced (5) Ulcer of toe: Qualifiers: Laterality: right Non-pressure ulcer stage: with fat layer exposed Qualified Code(s): L97.512 - Non-pressure chronic ulcer of other part of right foot with fat layer exposed Code(s): L97.509 - Non-pressure chronic ulcer of other part of unspecified foot with unspecified severity Status: Acute Assessment and Plan: Wound care consult (6) Fall: Qualifiers: Encounter type: initial encounter Qualified Code(s): W19.XXXA - Unspecified fall, initial encounter Code(s): W19.XXXA - Unspecified fall, initial encounter Status: Acute Assessment and Plan: PT OT eval (7) MANUEL (obstructive sleep apnea): Code(s): G47.33 - Obstructive sleep apnea (adult) (pediatric) Status: Acute Assessment and Plan: Continue home treatment (8) Chronic kidney disease, stage 3 unspecified: Code(s): N18.30 - Chronic kidney disease, stage 3 unspecified Status: Acute Assessment and Plan: History of kidney transplant on tacrolimus patient also on Bactrim DC Bactrim because of hyperkalemia Nephrology consult (9) Diabetes: Qualifiers: Diabetes mellitus type: type 2 Diabetes mellitus continuous churn buttermaker insulin use: with continuous churn buttermaker use Diabetes mellitus complication status: with kidney complications Diabetes mellitus complication detail: with chronic kidney disease Chronic kidney disease stage: unspecified stage Qualified Code(s): E11.22 - Type 2 diabetes mellitus with diabetic chronic kidney disease; Z79.4 - lobsterman (current) use of insulin Code(s): E11.9 - Type 2 diabetes mellitus without complications Status: Acute Assessment and Plan: Insulin sliding scale I added Lantus (10) Cirrhosis of liver with ascites: Cod
[2021-03-27 17:43] LABS: Glucose Point of Care 192 mg/dl (65-105)
[2021-03-27] MEDS: PANTOPRAZOLE SODIUM IV 40 MG VIAL IV PUSH (20:47)
[2021-03-27 21:18] LABS: Glucose Point of Care 195 mg/dl (65-105)
[2021-03-28] VITALS (21 sets, daily range): BP systolic 100–153; BP diastolic 69–100; PULSE 106–129; RESP 12–22; TEMP 36.2–37.2; O2SAT 92–100
[2021-03-28] MEDS: MORPHINE SULFATE (*CRX) 2 MG/ML INJ IV PUSH ×4 (00:24→18:55)
[2021-03-28] MEDS: SODIUM CHLORIDE 0.9% IV 1,000 ML 100 ML IV CONT ×2 (02:44→16:38)
[2021-03-28] MEDS: CENTRAL LINE FLUSH 10 ML IV PUSH ×3 (04:25→22:27)
[2021-03-28 05:17] LABS: Hematocrit 23.7 % (42.0-52.0); Hemoglobin 7.7 g/dL (14.0-18.0); Mean Corpuscular HGB Conc 32.5 g/dl (32-36); Mean Corpuscular Hemoglobin 31.6 pg (26-34); Mean Corpuscular Volume 97.1 fl (80-100); Mean Platelet Volume 11.1 fl (7.4-10.4); Platelet Count Result 106 k/mm3 (150-375); Red Blood Count 2.44 M/mm3 (4.6-6.20); Red Cell Distribution Width 16.9 % (11.5-14.5); White Blood Count 9.3 K/mm3 (4.5-10.0)
[2021-03-28 05:25] LABS: Albumin Level 2.4 g/dL (3.5-5.1); Anion Gap 5 mmol/L (8-16); Blood Urea Nitrogen 19 mg/dL (9-20); Calcium 8.1 mg/dL (8.4-10.2); Carbon Dioxide 25 mmol/L (22-30); Chloride 109 mmol/L (98-107); Estimated CRCL calculation 45 ml/min; Estimated Glomerular Filt Rate 51; Glucose 129 mg/dL (65-110); Phosphorus 4.1 mg/dL (2.5-4.5); Sodium 139 mmol/L (137-145)
[2021-03-28] MEDS: gemfibroziL 600 MG TABLET PO ×2 (06:15→16:20)
[2021-03-28] MEDS: MINOCYCLINE HCL 50 MG CAPSULE 100 MG PO (06:16)
[2021-03-28] MEDS: HYDROcodone/acetaminophen (*CRX) 5-325 MG TABLET 1 TAB PO ×2 (06:29→22:23)
--- NOTE | 2021-03-28 07:25 | WPDHPUPDATE1 ---
History and Physical Update Update Date/Time: 03/28/21 07:25 History and Physical has been reviewed, including an updated exam of the patient. There are NO changes in the patient's condition. Risks, benefits, and alternatives have been discussed and questions answered. Patient agrees to proceed with procedure.
[2021-03-28 09:11] LABS: Glucose Point of Care 123 mg/dl (65-105)
[2021-03-28] MEDS: SODIUM CHLORIDE 0.9% IV 500 ML 30 ML IV CONT (10:30)
--- NOTE | 2021-03-28 10:42 | WPDANESEPPF ---
Anes - Initial Pre Proc Eval Procedure: Operation Date: 03/28/21 11:00 Proposed Procedures p Repair Left Arm Laceration - Reyes Morales MD Date/Time: 03/28/21 10:42 Surgeon: Ana Navarro DO Pre Op Diagnosis: arm wound, leg laceration, hyperkalemia, alcohol i Patient Data Age: 65 Gender: M Height: 1.73 m Weight: 86.9 kg Last Vital Signs Temp 36.2 C L 03/28/21 07:21 Pulse 114 H 03/28/21 07:21 Resp 20 03/28/21 07:21 BP 124/73 03/28/21 07:21 Pulse Ox 95 03/28/21 07:21 Allergies Allergy/AdvReac Type Severity Reaction Status Date / Time cefazolin Allergy Mild Rash Verified 03/25/21 18:25 Cephalosporins Allergy Mild Rash Verified 03/25/21 18:25 Penicillins Allergy Mild Rash Verified 03/25/21 18:25 Home Medications Medication Instructions Recorded Confirmed Type folic acid 1 mg PO DAILY 01/07/19 03/26/21 History multivitamin 1 tablet PO DAILY 01/07/19 03/26/21 History [id number] oil 1 cap PO BID 01/07/19 03/26/21 History pyridoxine (vitamin B6) 100 mg PO DAILY 01/07/19 03/26/21 History blood sugar diagnostic #50 each 01/14/19 03/26/21 Rx blood-glucose meter #1 each 01/14/19 03/26/21 Rx lancets 26 gauge #100 each 01/14/19 03/26/21 Rx aspirin 81 mg tablet,delayed 81 mg PO DAILY 03/05/19 03/26/21 History release blood sugar diagnostic, drum #51 each 03/05/19 03/26/21 History cholecalciferol (vitamin D3) 25 1,000 unit PO DAILY 03/05/19 03/26/21 History mcg (1,000 unit) capsule cyanocobalamin (vitamin B-12) 1,000 mcg IM MONTHLY 03/19/19 03/26/21 History 1,000 mcg/mL injection solution minocycline 100 mg PO DAILY 12/20/19 03/26/21 History prednisone 5 mg PO DAILY 12/20/19 03/26/21 History tacrolimus 1 mg capsule, 1 mg PO Q12H #1 cap 06/02/20 03/26/21 Rx immediate-release Novolog U-100 Insulin aspart See Rx Instructions .ROUTE .COMPLEX 06/27/20 03/26/21 History gemfibrozil 600 mg PO BID 06/27/20 03/26/21 History calcium carbonate 600 mg calcium 1,200 mg PO DAILY tablet 08/31/20 03/26/21 History (1,500 mg) tablet gabapentin 600 mg tablet 600 mg PO BID 08/31/20 03/26/21 History thiamine HCl (vitamin B1) 100 mg 100 mg PO DAILY 08/31/20 03/26/21 History tablet tizanidine 2 mg capsule 2 mg PO Q6H PRN cap 08/31/20 03/26/21 History ipratropium bromide 21 mcg (0.03 See Rx Instructions .ROUTE 01/10/21 03/26/21 Rx %) nasal spray .COMPLEX #60 ml pantoprazole 40 mg tablet,delayed 40 mg PO QAM #90 tablet 01/30/21 03/26/21 Rx release azelastine 137 mcg (0.1 %) nasal See Rx Instructions .ROUTE 02/22/21 03/26/21 Rx spray aerosol .COMPLEX #30 ml sulfamethoxazole 800 1 tablet PO BID #20 tablet 03/19/21 03/26/21 Rx mg-trimethoprim 160 mg tablet methocarbamol 500 mg PO TID PRN 03/26/21 03/26/21 History carvedilol [Coreg] 6.25 mg BID 03/27/21 03/27/21 History Laboratory Tests 03/27/21 03/27/21 03/27/21 00:49 11:59 12:03 WBC RBC Hgb 8.8 g/dL L g/dL (14.0-18.0) Hct 26.6 % L % (42.0-52.0) MCV MCH MCHC RDW Plt Count MPV Sodium Potassium Chloride Carbon Dioxide Anion Gap BUN Creatinine Estim Creat Clear Calc Estimated GFR Glucose POC Capillary Glucose 140 mg/dl H mg/dl (65-105) Calcium Phosphorus Albumin Crossmatch See Detail 03/27/21 03/27/21 03/28/21 17:36 20:03 04:32 WBC RBC Hgb Hct MCV MCH MCHC RDW Plt Count MPV Sodium 139 mmol/L mmol/L (137-145) Potassium 4.0 mmol/L mmol/L (3.4-5.0) Chloride 109 mmol/L H mmol/L (98-107) Carbon Dioxide 25 mmol/L mmol/L (22-30) Anion Gap 5 mm
--- NOTE | 2021-03-28 11:56 | P.OP_ITS ---
Procedure Note - Detailed Date of Procedure 03/28/21 Pre-op Diagnosis arm wound, leg laceration, hyperkalemia, alcohol i Post-op Diagnosis other (Left arm laceration) Procedure Performed 7 cm intermediate repair of left arm laceration Surgeon Reyes Morales MD Tubular Splitting Machine Tender Mckayla Anesthesia general Indications 2-day-old 7 cm laceration the subcutaneous tissue the left arm and a multiple compromised patient Findings Ragged subcutaneous wound of the left without evidence of infection Description of Procedure Patient's left arm was marked as he waited in holding area on his hospital bed. He was taken to the operating room given some anesthesia and moved to the operating table. He was given general anesthesia and the extremity was prepped and draped in usual fashion. With the arm resting across his body and the elbow flexed we examined this wound and irrigated it with saline, debriding the inside with wet sponges. This patient has been on antibiotics for over 2 days it seems safe to close this wound. The skin and subcutaneous tissue are not healthy. We elected to close with large interrupted 2-0 nylon sutures passing through the skin and dermis on each side and with manual support we were able to coapt the 2 sides. This seemed to provide sufficient support to hold the wound together. No drains were placed no tissue was sharply debrided. A heavy bulky gauze dressing was applied over this area on top of a Xeroform gauze there were no complications the patient was transported back to the hospital bed and will be transported back to his hospital floor after brief recovery. The only orders will change would be those regarding dressing. This order will not require a daily change at this time. Estimated Blood Loss -20.0 Tourniquet Time 0 Urine Output 400 Drains No Packing No Pathology none sent Complications No immediate complications Condition stable Disposition PACU
[2021-03-28 11:58] LABS: Glucose Point of Care 137 mg/dl (65-105)
[2021-03-28] MEDS: ERTAPENEM 1 GM/NS 50 ML 1 GM/50 ML BAG IVPB (12:12)
[2021-03-28] MEDS: fentaNYL CITRATE INJ (*CRX) 100 MCG/2 ML VIAL 25 MCG IV PUSH ×4 (12:23→13:00)
--- NOTE | 2021-03-28 13:06 | PCPTNOTE ---
Patient at surgery this date for arm laceration, will attempt when available for PT evaluation.
--- NOTE | 2021-03-28 13:20 | PCOTNOTE ---
Patient at surgery this date for arm laceration, will attempt when available for OT evaluation.
--- NOTE | 2021-03-28 14:43 | PM.PNNEP ---
Progress Note: A&P Assessment and Plan (1) Chronic kidney disease: Qualifiers: Chronic kidney disease stage: stage 3 (moderate) Chronic kidney disease stage 3 subtype: stage 3b (GFR 30-44) Qualified Code(s): N18.32 - Chronic kidney disease, stage 3b Code(s): N18.9 - Chronic kidney disease, unspecified Status: Acute Assessment and Plan: The patient has chronic kidney disease. He had end-stage renal disease starting dialysis in the and got a kidney transplant in 2007. He has a reasonably good creatinine of 1.7 which gives him CKD stage IIIB. His hemoglobin is 7.7 He is on tacrolimus and prednisone. (2) Fall: Qualifiers: Encounter type: initial encounter Qualified Code(s): W19.XXXA - Unspecified fall, initial encounter Code(s): W19.XXXA - Unspecified fall, initial encounter Status: Acute Assessment and Plan: The patient falls frequently. probably related to alcohol and possibly Gabapentin. Weaning the latter since he has no hypoesthesia is. (3) Acute hyperkalemia: Code(s): E87.5 - Hyperkalemia Status: Acute Assessment and Plan: resolved (4) Asterixis: Code(s): R27.8 - Other lack of coordination Status: Acute Assessment and Plan: See discussion above about Neurontin versus liver disease. (5) MANUEL (obstructive sleep apnea): Code(s): G47.33 - Obstructive sleep apnea (adult) (pediatric) Status: Acute Subjective Date/time seen: 03/28/21 14:43 Interval history: Patient is alert. He is feeling better. He is still in some pain. going to surgery sometime soon. Exam Narrative: WDWN in NAD skin no rash. Multiple contusions and bandages. head ncat lungs clear Bilaterally cor reg no rub abd BS+ nontender and soft ext no edema. Objective Data Vital Signs Vital Signs: Vital Signs - 24 hr 03/27/21 16:00 03/27/21 18:00 03/27/21 18:42 Temperature 36.6 C Pulse Rate 125 H 123 H 128 H Pulse Rate [Apical] 125 H Respiratory Rate 18 18 Blood Pressure 117/61 Pulse Oximetry 96 98 03/27/21 20:00 03/27/21 22:00 03/27/21 23:08 Temperature 37.5 C Pulse Rate 116 H 114 H 117 H Pulse Rate [Apical] 116 H Respiratory Rate 20 Blood Pressure 130/72 Pulse Oximetry 98 97 03/28/21 00:00 03/28/21 02:00 03/28/21 04:00 Temperature 37.2 C Pulse Rate 114 H 110 H 112 H Pulse Rate [Apical] 114 H 110 H Respiratory Rate 20 Blood Pressure 100/73 Pulse Oximetry 97 97 03/28/21 06:00 03/28/21 07:21 03/28/21 10:30 Temperature 36.2 C L 37.1 C Pulse Rate 117 H 114 H 116 H Pulse Rate [Apical] Respiratory Rate 20 18 Blood Pressure 124/73 148/85 H Pulse Oximetry 95 97 03/28/21 11:55 03/28/21 12:10 03/28/21 12:25 Temperature 36.9 C Pulse Rate 129 H 114 H 116 H Pulse Rate [Apical] Respiratory Rate 16 14 20 Blood Pressure 153/92 H 153/100 H 146/87 H Pulse Oximetry 100 99 93 03/28/21 12:45 03/28/21 13:00 03/28/21 13:15 Temperature Pulse Rate 119 H 115 H 111 H Pulse Rate [Apical] Respiratory Rate 16 15 12 Blood Pressure 149/91 H 118/77 128/85 Pulse Oximetry 95 92 100 03/28/21 13:30 03/28/21 13:45 Temperature Pulse Rate 111 H 115 H Pulse Rate [Apical] Respiratory Rate 14 18 Blood Pressure 129/78 125/69 Pulse Oximetry 100 100 Intake/Output Intake/Output: Intake & Output 03/25/21 03/26/21 03/27/21 03/28/21 23:59 23:59 23:59 23:59 Intake Total 1740 3666 1800 Output Total 100 1025 1450 Balance 1640 2641 350 Meds/Results Medications: Active Medications Generic Name Dose Route Start Last Admin Trade Name Freq PRN Reason Stop Dose Admin Acetaminophen 650 mg 03/25/21 21:24 Acetaminophen 325 Mg Tablet PO Q4H PRN Mild Pain (1-3) or Fever Hydrocodone Bitart/Acetaminophen 1 tab 03/25/21 21:24 03/28/21 06:29 Hydrocodone/Acetaminophen (*Crx) 5-325 Mg Tablet PO 1 tab Q4H PRN Administration Pa
--- NOTE | 2021-03-28 16:15 | PM.IMPN ---
Progress Note: A&P Assessment and Plan (1) Acute hyperkalemia: Code(s): E87.5 - Hyperkalemia Status: Acute Assessment and Plan: Patient does not have IV access stat consult for surgery Give Kayexalate Give IV fluid Nephrology was consulted Repeat potassium level in 4 hours 03/27/2021 interval history: patient status post kidney transplant on immunosuppression therapy presented emergency depart after he failed getting out of the bathroom patient states he had drank 6 Vodkas, he struck his left arm and has a laceration also concern that he may have hit his head CT scan of the head is negative for any acute injury, patient had had x-ray of the head and humerus without any acute bony injury, today patient main complaint is back pain will give the patient Lidoderm patches and cyclobenzaprine, will have a PT OT evaluate the patient. patient seen by Nephrology patient has stage 3 chronic kidney disease, we have placed the patient under CIWA protocol Librium as needed. 03/28/2021 interval history: patient with laceration of left upper arm was seen by plastic surgeon was taken to the OR and the wound was repaired, patient continued to complain of back pain CT scan of the thoracic-lumbar spine showed acute transfers oblique fracture through T8 vertebrae body. patient denies any numbness weakness lower extremities, any numbness weakness and groin area and patient has a control over bowel and bladder, will continue Lidoderm patches, will increase Flexeril 5 mg t.i.d. as needed, patient with kidney transplant, with stage III chronic kidney disease seen by building and construction manager and further recommendation to follow, (2) Arm wound: Qualifiers: Encounter type: initial encounter Laterality: left Qualified Code(s): S41.102A - Unspecified open wound of left upper arm, initial encounter Code(s): S41.109A - Unspecified open wound of unspecified upper arm, initial encounter Status: Acute Assessment and Plan: Secondary to fall plastic surgeon was consulted (3) Laceration of leg: Qualifiers: Encounter type: initial encounter Laterality: right Qualified Code(s): S81.811A - Laceration without foreign body, right lower leg, initial encounter Code(s): S81.819A - Laceration without foreign body, unspecified lower leg, initial encounter Status: Acute Assessment and Plan: Pending surgery evaluation (4) Alcohol intoxication: Qualifiers: Complication of substance-induced condition: uncomplicated Qualified Code(s): F10.920 - Alcohol use, unspecified with intoxication, uncomplicated Code(s): F10.929 - Alcohol use, unspecified with intoxication, unspecified Status: Acute Assessment and Plan: Counseling monitor for alcohol withdrawal Vitamin replaced (5) Ulcer of toe: Qualifiers: Laterality: right Non-pressure ulcer stage: with fat layer exposed Qualified Code(s): L97.512 - Non-pressure chronic ulcer of other part of right foot with fat layer exposed Code(s): L97.509 - Non-pressure chronic ulcer of other part of unspecified foot with unspecified severity Status: Acute Assessment and Plan: Wound care consult (6) Fall: Qualifiers: Encounter type: initial encounter Qualified Code(s): W19.XXXA - Unspecified fall, initial encounter Code(s): W19.XXXA - Unspecified fall, initial encounter Status: Acute Assessment and Plan: PT OT eval (7) MANUEL (obstructive sleep apnea): Code(s): G47.33 - Obstructive sleep apnea (adult) (pediatric) Status: Acute Assessment and Plan: Continue home treatment (8) Chronic kidney disease, stage 3 unspecified: Code(s): N18.30 - Chronic kidney disease, stage 3 unspecified Status: Acute Assessment and Plan: History of kidney transplant on tacrolimus patient also on Bactrim DC Bactrim because of hyperkalemia Nephrology consult (9) Ernestine
[2021-03-28] MEDS: SODIUM BICARBONATE TAB 650 MG TABLET PO (16:20)
[2021-03-28] MEDS: CHOLECALCIFEROL 1,000 UNITS TABLET 1000 UNITS PO (16:20)
[2021-03-28] MEDS: FOLIC ACID 1 MG TABLET PO (16:20)
[2021-03-28] MEDS: OMEGA 3 POLYUNSAT FATTY ACIDS 1 GM CAP PO ×2 (16:20→16:29)
[2021-03-28] MEDS: PYRIDOXINE HCL 50 MG TABLET 100 MG PO (16:21)
[2021-03-28] MEDS: THIAMINE HCL 100 MG TABLET PO (16:21)
[2021-03-28] MEDS: GABAPENTIN 100 MG CAPSULE 200 MG PO (16:21)
[2021-03-28] MEDS: ASPIRIN 81 MG ENTERIC TABLET PO (16:21)
[2021-03-28] MEDS: predniSONE 5 MG TABLET PO (16:24)
[2021-03-28] MEDS: IPRATROPIUM NASAL SPRAY 0.03% 15 ML BOTTLE 2 SPRAY NASAL ×2 (16:25→22:24)
[2021-03-28] MEDS: CALCIUM CARBONATE (OSCAL) 500 MG TABLET 1000 MG PO (16:26)
[2021-03-28] MEDS: AZELASTINE HCL NASAL 0.1% 137 MCG/SPR 30 ML BTL 1 SPRAY NASAL ×2 (16:26→22:25)
[2021-03-28] MEDS: MULTIVITAMINS THERAPEUTIC TAB (*BKC) 1 TABLET PO (16:27)
[2021-03-28 17:35] LABS: Glucose Point of Care 146 mg/dl (65-105)
[2021-03-28] MEDS: CYCLOBENZAPRINE HCL 5 MG TABLET PO (22:23)
[2021-03-28] MEDS: INSULIN GLARGINE (*BKC) 100 UNITS/ML 10 UNITS SUB-Q (22:29)
[2021-03-28 22:44] LABS: Glucose Point of Care 203 mg/dl (65-105)
[2021-03-29] VITALS (9 sets, daily range): BP systolic 109–152; BP diastolic 59–85; PULSE 100–114; RESP 17–20; TEMP 36.1–36.8; O2SAT 95–100
[2021-03-29] MEDS: MORPHINE SULFATE (*CRX) 2 MG/ML INJ IV PUSH ×4 (04:42→21:44)
[2021-03-29 05:21] LABS: Hematocrit 23.6 % (42.0-52.0); Hemoglobin 7.5 g/dL (14.0-18.0)
[2021-03-29] MEDS: SODIUM CHLORIDE 0.9% IV 1,000 ML 100 ML IV CONT (05:30)
[2021-03-29] MEDS: CENTRAL LINE FLUSH 10 ML IV PUSH ×3 (05:34→21:46)
[2021-03-29] MEDS: MINOCYCLINE HCL 50 MG CAPSULE 100 MG PO (05:34)
[2021-03-29] MEDS: gemfibroziL 600 MG TABLET PO ×2 (05:34→17:29)
[2021-03-29 05:36] LABS: Albumin Level 2.4 g/dL (3.5-5.1); Anion Gap 3 mmol/L (8-16); Blood Urea Nitrogen 16 mg/dL (9-20); Calcium 8.3 mg/dL (8.4-10.2); Carbon Dioxide 26 mmol/L (22-30); Chloride 109 mmol/L (98-107); Estimated CRCL calculation 57 ml/min; Estimated Glomerular Filt Rate > 60; Glucose 148 mg/dL (65-110); Phosphorus 3.9 mg/dL (2.5-4.5); Potassium 4.1 mmol/L (3.4-5.0); Sodium 138 mmol/L (137-145)
[2021-03-29] MEDS: CYCLOBENZAPRINE HCL 5 MG TABLET PO (05:55)
[2021-03-29 08:46] LABS: Glucose Point of Care 110 mg/dl (65-105)
[2021-03-29] MEDS: CHOLECALCIFEROL 1,000 UNITS TABLET 1000 UNITS PO (09:01)
[2021-03-29] MEDS: ASPIRIN 81 MG ENTERIC TABLET PO (09:01)
[2021-03-29] MEDS: SODIUM BICARBONATE TAB 650 MG TABLET PO ×2 (09:01→17:30)
[2021-03-29] MEDS: PYRIDOXINE HCL 50 MG TABLET 100 MG PO (09:03)
[2021-03-29] MEDS: OMEGA 3 POLYUNSAT FATTY ACIDS 1 GM CAP PO ×2 (09:03→17:28)
[2021-03-29] MEDS: predniSONE 5 MG TABLET PO (09:03)
[2021-03-29] MEDS: MULTIVITAMINS THERAPEUTIC TAB (*BKC) 1 TABLET PO (09:03)
[2021-03-29] MEDS: IPRATROPIUM NASAL SPRAY 0.03% 15 ML BOTTLE 2 SPRAY NASAL ×2 (09:04→21:40)
[2021-03-29] MEDS: LIDOCAINE 5% PATCH 3 PATCH TRANSDERM (09:04)
[2021-03-29] MEDS: SILVER NITRATE 1 EA BANDAGE (AQUACEL-AG)(*BKC) 1 EACH TOPICAL (09:05)
[2021-03-29] MEDS: AZELASTINE HCL NASAL 0.1% 137 MCG/SPR 30 ML BTL 1 SPRAY NASAL ×2 (09:06→21:40)
[2021-03-29] MEDS: THIAMINE HCL 100 MG TABLET PO (09:06)
[2021-03-29] MEDS: GABAPENTIN 100 MG CAPSULE 200 MG PO ×2 (09:06→17:29)
[2021-03-29 09:46] LABS: Tacrolimus Prograf 2.4 mcg/L
[2021-03-29] MEDS: CALCIUM CARBONATE (OSCAL) 500 MG TABLET 1000 MG PO (10:12)
[2021-03-29] MEDS: FOLIC ACID 1 MG TABLET PO (10:12)
[2021-03-29] MEDS: ERTAPENEM 1 GM/NS 50 ML 1 GM/50 ML BAG IVPB (12:21)
[2021-03-29] MEDS: HYDROcodone/acetaminophen (*CRX) 5-325 MG TABLET 1 TAB PO (12:23)
[2021-03-29 12:41] LABS: Glucose Point of Care 183 mg/dl (65-105)
--- NOTE | 2021-03-29 15:00 | PM.IMPN ---
Progress Note: A&P Assessment and Plan (1) Acute hyperkalemia: Code(s): E87.5 - Hyperkalemia Status: Acute Assessment and Plan: Patient does not have IV access stat consult for surgery Give Kayexalate Give IV fluid Nephrology was consulted Repeat potassium level in 4 hours 03/27/2021 interval history: patient status post kidney transplant on immunosuppression therapy presented emergency depart after he failed getting out of the bathroom patient states he had drank 6 Vodkas, he struck his left arm and has a laceration also concern that he may have hit his head CT scan of the head is negative for any acute injury, patient had had x-ray of the head and humerus without any acute bony injury, today patient main complaint is back pain will give the patient Lidoderm patches and cyclobenzaprine, will have a PT OT evaluate the patient. patient seen by Nephrology patient has stage 3 chronic kidney disease, we have placed the patient under CIWA protocol Librium as needed. 03/28/2021 interval history: patient with laceration of left upper arm was seen by plastic surgeon was taken to the OR and the wound was repaired, patient continued to complain of back pain CT scan of the thoracic-lumbar spine showed acute transfers oblique fracture through T8 vertebrae body. patient denies any numbness weakness lower extremities, any numbness weakness and groin area and patient has a control over bowel and bladder, will continue Lidoderm patches, will increase Flexeril 5 mg t.i.d. as needed, patient with kidney transplant, with stage III chronic kidney disease seen by stock shaper and further recommendation to follow. 03/29/2021 interval history: patient with laceration of left upper arm on 03/28 was seen by plastic surgeon was taken to the OR and the wound was repaired, patient continued to complain of back pain CT scan of the thoracic-lumbar spine showed acute transfers oblique fracture through T8 vertebrae body. patient denies any numbness weakness lower extremities, any numbness weakness and groin area and patient has a control over bowel and bladder, continued Lidoderm patches and increased Flexeril 5 mg t.i.d. as needed, patient with kidney transplant, with stage III chronic kidney disease seen by stock shaper and further recommendation to follow, patient with anemia stool Hemoccult is negative most likely secondary to iron deficiency as well as due to chronic kidney disease patient is supplemented with IV iron and will continue to monitor (2) Arm wound: Qualifiers: Encounter type: initial encounter Laterality: left Qualified Code(s): S41.102A - Unspecified open wound of left upper arm, initial encounter Code(s): S41.109A - Unspecified open wound of unspecified upper arm, initial encounter Status: Acute Assessment and Plan: Secondary to fall plastic surgeon was consulted (3) Laceration of leg: Qualifiers: Encounter type: initial encounter Laterality: right Qualified Code(s): S81.811A - Laceration without foreign body, right lower leg, initial encounter Code(s): S81.819A - Laceration without foreign body, unspecified lower leg, initial encounter Status: Acute Assessment and Plan: Pending surgery evaluation (4) Alcohol intoxication: Qualifiers: Complication of substance-induced condition: uncomplicated Qualified Code(s): F10.920 - Alcohol use, unspecified with intoxication, uncomplicated Code(s): F10.929 - Alcohol use, unspecified with intoxication, unspecified Status: Acute Assessment and Plan: Counseling monitor for alcohol withdrawal Vitamin replaced (5) Ulcer of toe: Qualifiers: Laterality: right Non-pressure ulcer stage: with fat layer exposed Qualified Code(s): L97.512 - Non-pressure chronic ulcer of other part of right foot with fat layer exposed Code(s): L97.509 - Non-pressure chronic ulcer of other part of unsp
[2021-03-29 16:47] LABS: Glucose Point of Care 139 mg/dl (65-105)
--- NOTE | 2021-03-29 17:39 | WPDPN ---
Progress Note: A&P Assessment and Plan (1) Laceration of left upper arm: Onset Date: 03/2021 Code(s): S41.112A - Laceration without foreign body of left upper arm, initial encounter Status: Acute Assessment and Plan: Part of Hb loss is accountable in the various bruises that are substantial on extremities. No current bleeding on left arm. Arm wound appears to be stable. Will continue to follow daily. Subjective Date/time seen: 03/29/21 17:39 Pt is cooperative and verbally appropriate. Complains of inability to take deep breath due to pain in back and ribs. Reported to not tolerate sitting for more than 1/2 hour in a chair. Unable to reposition himself. Nurse reports o2 sats have been acceptable. Exam Narrative: Left arm wound is intact after closure yesterday. No functional problems with the left arm Serous drainage due to extent of subcutaneous wound size. Objective Data Vital Signs Vital Signs: Vital Signs - 24 hr 03/28/21 18:00 03/28/21 20:00 03/28/21 22:00 Temperature 97.2 F L Pulse Rate 123 H 118 H 117 H Pulse Rate [Apical] 111 H Respiratory Rate 20 Blood Pressure 148/75 H Pulse Oximetry 94 03/29/21 00:00 03/29/21 02:00 03/29/21 04:00 Temperature 97.7 F 98.3 F Pulse Rate 111 H 108 H 106 H Pulse Rate [Apical] 111 H 106 H Respiratory Rate 20 20 Blood Pressure 109/59 L 126/65 Pulse Oximetry 97 95 03/29/21 06:00 03/29/21 08:00 03/29/21 08:50 Temperature 97.0 F L Pulse Rate 100 112 H 109 H Pulse Rate [Apical] 109 H Respiratory Rate 20 Blood Pressure 151/70 H 151/70 H Pulse Oximetry 97 97 03/29/21 16:54 Temperature 97.0 F L Pulse Rate 103 H Pulse Rate [Apical] Respiratory Rate 20 Blood Pressure 152/85 H Pulse Oximetry 100 Intake/Output Intake/Output: Intake & Output 03/26/21 03/27/21 03/28/21 03/29/21 23:59 23:59 23:59 23:59 Intake Total 1740 3666 2900 2096 Output Total 100 1025 3100 700 Balance 1640 2641 -200 1396 Meds/Results Medications: Active Medications Generic Name Dose Route Start Last Admin Trade Name Roz PRN Reason Stop Dose Admin Acetaminophen 650 mg 03/25/21 21:24 Acetaminophen 325 Mg Tablet PO Q4H PRN Mild Pain (1-3) or Fever Hydrocodone Bitart/Acetaminophen 1 tab 03/25/21 21:24 03/29/21 12:23 Hydrocodone/Acetaminophen (*Crx) 5-325 Mg Tablet PO 1 tab Q4H PRN Administration Pain Rated 4-6 Aspirin 81 mg 03/26/21 09:00 03/29/21 09:01 Aspirin 81 Mg Enteric Tablet PO 81 mg DAILY AGUILAR Administration Azelastine HCl 1 spray 03/26/21 09:05 03/29/21 09:06 Azelastine Hcl Nasal 0.1% 137 Mcg/Spr 30 Ml Btl NASAL 1 spray Q12HR AGUILAR Administration Calcium Carbonate 1,000 mg 03/26/21 09:00 03/29/21 10:12 Calcium Carbonate (Oscal) 500 Mg Tablet PO 1,000 mg DAILY AGUILAR Administration Chlordiazepoxide HCl 25 mg 03/26/21 11:03 Chlordiazepoxide (*Crx) 25 Mg Capsule PO Q6H PRN Withdrawal Cyclobenzaprine HCl 5 mg 03/28/21 15:34 03/29/21 05:55 Cyclobenzaprine Hcl 5 Mg Tablet PO 5 mg Q8H PRN Administration Muscle Spasm Dextrose 12.5 gm 03/26/21 09:04 Dextrose 50% 25 Gm/50 Ml Syringe IV PUSH PRN PRN Hypoglycemia Protocol Fentanyl Citrate 25 mcg 03/28/21 10:42 03/28/21 13:00 Fentanyl Citrate Inj (*Crx) 100 Mcg/2 Ml Vial IV PUSH 25 mcg Q2M PRN Administration Pain Fish Oil 1 gm 03/26/21 17:00 03/29/21 17:28 [place] 3 Polyunsat Fatty Acids 1 Gm Cap PO 1 gm BID AGUILAR Administration Folic Acid 1 mg 03/26/21 09:00 03/29/21 10:12 Folic Acid 1 Mg Tablet PO 1 mg DAILY AGUILAR Administration Gabapentin 200 mg 03/26/21 17:00 03/29/21 17:29 Gabapentin 100 Mg Capsule PO 200 mg BID AGUILAR Administration Gemfibrozil 600 mg 03/26/21 09:00 03/29/21 17:29 Gemfibrozil 600 Mg Tablet PO 600 mg BIDAC AGUILAR Administration Glucagon 1 mg 03/26/21 09:04 Glucagon For Inj 1 Mg V
--- NOTE | 2021-03-29 17:47 | PC.NURSE ---
This patient, Abhilash Jesus, was transferred to [[id number] ] on 03/29/21 at 1747. Personal belongings sent with patient. Report given to [ ROMARIO Webb @ [phone]]. Appropriate documentation sent with patient.
--- NOTE | 2021-03-29 18:09 | PC.NURSE ---
This patient, Abhilash Jesus, was received from IMU on 03/29/21 at 1809. Patient/family oriented to unit policies and routines
[2021-03-29 18:58] LABS: Hematocrit 26.9 % (42.0-52.0); Hemoglobin 8.5 g/dL (14.0-18.0)
[2021-03-29] MEDS: INSULIN GLARGINE (*BKC) 100 UNITS/ML 10 UNITS SUB-Q (21:45)
[2021-03-29 22:36] LABS: Glucose Point of Care 133 mg/dl (65-105)
[2021-03-30 00:36] LABS: Osmolality, Urine 329 mOsm/kg (50-1200)
[2021-03-30 01:12] LABS: Vancomycin Trough 14.6 ug/mL (10.0-20.0)
[2021-03-30] MEDS: MORPHINE SULFATE (*CRX) 2 MG/ML INJ IV PUSH ×2 (01:44→06:38)
[2021-03-30 04:24] VITALS: BP 134/72; PULSE 99; RESP 17; TEMP 37.2; O2SAT 96
[2021-03-30] MEDS: MINOCYCLINE HCL 50 MG CAPSULE 100 MG PO (06:37)
[2021-03-30] MEDS: gemfibroziL 600 MG TABLET PO ×2 (06:37→17:35)
[2021-03-30] MEDS: CENTRAL LINE FLUSH 10 ML IV PUSH ×3 (06:41→20:41)
[2021-03-30 06:51] LABS: Albumin Level 2.6 g/dL (3.5-5.1); Anion Gap 4 mmol/L (8-16); Blood Urea Nitrogen 15 mg/dL (9-20); Calcium 8.9 mg/dL (8.4-10.2); Carbon Dioxide 25 mmol/L (22-30); Chloride 109 mmol/L (98-107); Estimated CRCL calculation 70 ml/min; Estimated Glomerular Filt Rate > 60; Glucose 100 mg/dL (65-110); Phosphorus 3.9 mg/dL (2.5-4.5); Potassium 4.1 mmol/L (3.4-5.0); Sodium 138 mmol/L (137-145)
[2021-03-30 07:52] LABS: Glucose Point of Care 98 mg/dl (65-105)
[2021-03-30] MEDS: AZELASTINE HCL NASAL 0.1% 137 MCG/SPR 30 ML BTL 1 SPRAY NASAL ×2 (09:06→20:40)
[2021-03-30] MEDS: CALCIUM CARBONATE (OSCAL) 500 MG TABLET 1000 MG PO (09:06)
[2021-03-30] MEDS: GABAPENTIN 100 MG CAPSULE 200 MG PO ×2 (09:06→17:34)
[2021-03-30] MEDS: IPRATROPIUM NASAL SPRAY 0.03% 15 ML BOTTLE 2 SPRAY NASAL ×2 (09:06→20:40)
[2021-03-30] MEDS: SODIUM BICARBONATE TAB 650 MG TABLET PO ×2 (09:07→17:35)
[2021-03-30] MEDS: OMEGA 3 POLYUNSAT FATTY ACIDS 1 GM CAP PO ×2 (09:07→17:35)
[2021-03-30] MEDS: FOLIC ACID 1 MG TABLET PO (09:07)
[2021-03-30] MEDS: MULTIVITAMINS THERAPEUTIC TAB (*BKC) 1 TABLET PO (09:07)
[2021-03-30] MEDS: CHOLECALCIFEROL 1,000 UNITS TABLET 1000 UNITS PO (09:07)
[2021-03-30] MEDS: THIAMINE HCL 100 MG TABLET PO (09:07)
[2021-03-30] MEDS: PYRIDOXINE HCL 50 MG TABLET 100 MG PO (09:07)
[2021-03-30] MEDS: ASPIRIN 81 MG ENTERIC TABLET PO (09:07)
[2021-03-30] MEDS: IRON SUCROSE COMPLEX 200 MG in SODIUM CHLORIDE 0.9% IV 50 ML 240 MG IVPB (09:08)
[2021-03-30] MEDS: predniSONE 5 MG TABLET PO (09:08)
[2021-03-30] MEDS: HYDROcodone/acetaminophen (*CRX) 5-325 MG TABLET 1 TAB PO ×2 (09:12→20:47)
[2021-03-30] MEDS: CYCLOBENZAPRINE HCL 5 MG TABLET PO ×2 (09:13→20:47)
[2021-03-30 11:45] LABS: Glucose Point of Care 119 mg/dl (65-105)
[2021-03-30] MEDS: ERTAPENEM 1 GM/NS 50 ML 1 GM/50 ML BAG IVPB (12:11)
--- NOTE | 2021-03-30 12:43 | PM.PNNEP ---
Progress Note: A&P Assessment and Plan (1) Chronic kidney disease: Qualifiers: Chronic kidney disease stage: stage 3 (moderate) Chronic kidney disease stage 3 subtype: stage 3b (GFR 30-44) Qualified Code(s): N18.32 - Chronic kidney disease, stage 3b Code(s): N18.9 - Chronic kidney disease, unspecified Status: Chronic Assessment and Plan: history of end-stage renal disease starting dialysis in the and got a kidney transplant in 2007 baseline creatinine has been fluctuating ~ 1.4 - 1.7mg/dl (placing him at CKD stage 3B) remains on prednisone and tacrolimus for his renal transplant creatine better than baseline -- suspect due to bed bound status and possibly diminished oral intake (2) Fall: Qualifiers: Encounter type: initial encounter Qualified Code(s): W19.XXXA - Unspecified fall, initial encounter Code(s): W19.XXXA - Unspecified fall, initial encounter Status: Acute Assessment and Plan: occurs frequently apparently possibly due to alcohol use +/- gabapentin gabapentin being weaned (3) Acute hyperkalemia: Code(s): E87.5 - Hyperkalemia Status: Acute Assessment and Plan: resolved follow trend of repeat potassium levels Will continue to follow intermittently. Subjective Date/time seen: 03/30/21 12:43 Chart reviewed - assuming care from Dr. Villa; still with some pleuritic pain with deep breaths secondary to rib fractures; arm wound appears relatively stable with ongoing monitoring by Plastic Surgery; no issues/events overnight or earlier this AM; diminished mobility due to current injuries. Exam Narrative: General: WD/WN male in NAD Heart: normal S1 and S2; no rub Lungs: clear to auscultation Abdomen: soft, nontender, nondistended, positive bowel sounds Extremities: no cyanosis or clubbing; no edema Skin: warm and dry; multiple contusions/bruises that are healing Objective Data Vital Signs Vital Signs: Vital Signs Temp Pulse Resp BP Pulse Ox 03/30/21 04:24 37.2 C 99 17 134/72 96 03/29/21 20:04 36.6 C 100 17 130/73 100 03/29/21 18:10 36.1 C L 03/29/21 16:54 36.1 C L 103 H 20 152/85 H 100 Intake/Output Intake/Output: Intake & Output 03/27/21 03/28/21 03/29/21 03/30/21 23:59 23:59 23:59 23:59 Intake Total 3666 2900 2146 690 Output Total 1025 3100 1100 1000 Balance 2641 -200 1046 -310 Meds/Results Medications: Active Medications Generic Name Dose Route Start Last Admin Trade Name Freq PRN Reason Stop Dose Admin Acetaminophen 650 mg 03/25/21 21:24 03/30/21 14:22 Acetaminophen 325 Mg Tablet PO 650 mg Q4H PRN Administration Mild Pain (1-3) or Fever Hydrocodone Bitart/Acetaminophen 1 tab 03/25/21 21:24 03/30/21 09:12 Hydrocodone/Acetaminophen (*Crx) 5-325 Mg Tablet PO 1 tab Q4H PRN Administration Pain Rated 4-6 Aspirin 81 mg 03/26/21 09:00 03/30/21 09:07 Aspirin 81 Mg Enteric Tablet PO 81 mg DAILY AGUILAR Administration Azelastine HCl 1 spray 03/26/21 09:05 03/30/21 09:06 Azelastine Hcl Nasal 0.1% 137 Mcg/Spr 30 Ml Btl NASAL 1 spray Q12HR AGUILAR Administration Calcium Carbonate 1,000 mg 03/26/21 09:00 03/30/21 09:06 Calcium Carbonate (Oscal) 500 Mg Tablet PO 1,000 mg DAILY AGUILAR Administration Chlordiazepoxide HCl 25 mg 03/26/21 11:03 Chlordiazepoxide (*Crx) 25 Mg Capsule PO Q6H PRN Withdrawal Cyclobenzaprine HCl 5 mg 03/28/21 15:34 03/30/21 09:13 Cyclobenzaprine Hcl 5 Mg Tablet PO 5 mg Q8H PRN Administration Muscle Spasm Dextrose 12.5 gm 03/26/21 09:04 Dextrose 50% 25 Gm/50 Ml Syringe IV PUSH PRN PRN Hypoglycemia Protocol Fentanyl Citrate 25 mcg 03/28/21 10:42 03/28/21 13:00 Fentanyl Citrate Inj (*Crx) 100 Mcg/2 Ml Vial IV PUSH 25 mcg Q2M PRN Administration Pain Fish Oil 1 gm 03/26/21 17:00 03/30/21 09:07 [place] 3 Polyunsat Fatty Ac
--- NOTE | 2021-03-30 13:09 | PM.IMPN ---
Progress Note: A&P Assessment and Plan (1) Acute hyperkalemia: Code(s): E87.5 - Hyperkalemia Status: Acute Assessment and Plan: Patient does not have IV access stat consult for surgery Give Kayexalate Give IV fluid Nephrology was consulted Repeat potassium level in 4 hours 03/27/2021 interval history: patient status post kidney transplant on immunosuppression therapy presented emergency depart after he failed getting out of the bathroom patient states he had drank 6 Vodkas, he struck his left arm and has a laceration also concern that he may have hit his head CT scan of the head is negative for any acute injury, patient had had x-ray of the head and humerus without any acute bony injury, today patient main complaint is back pain will give the patient Lidoderm patches and cyclobenzaprine, will have a PT OT evaluate the patient. patient seen by Nephrology patient has stage 3 chronic kidney disease, we have placed the patient under CIWA protocol Librium as needed. 03/28/2021 interval history: patient with laceration of left upper arm was seen by plastic surgeon was taken to the OR and the wound was repaired, patient continued to complain of back pain CT scan of the thoracic-lumbar spine showed acute transfers oblique fracture through T8 vertebrae body. patient denies any numbness weakness lower extremities, any numbness weakness and groin area and patient has a control over bowel and bladder, will continue Lidoderm patches, will increase Flexeril 5 mg t.i.d. as needed, patient with kidney transplant, with stage III chronic kidney disease seen by soft mud molder and further recommendation to follow. 03/29/2021 interval history: patient with laceration of left upper arm on 03/28 was seen by plastic surgeon was taken to the OR and the wound was repaired, patient continued to complain of back pain CT scan of the thoracic-lumbar spine showed acute transfers oblique fracture through T8 vertebrae body. patient denies any numbness weakness lower extremities, any numbness weakness and groin area and patient has a control over bowel and bladder, continued Lidoderm patches and increased Flexeril 5 mg t.i.d. as needed, patient with kidney transplant, with stage III chronic kidney disease seen by soft mud molder and further recommendation to follow, patient with anemia stool Hemoccult is negative most likely secondary to iron deficiency as well as due to chronic kidney disease patient is supplemented with IV iron and will continue to monitor. 03/30/2021 interval history: patient continue to have a pain and difficulty with taking deep breath due to pain in his ribs, patient denies abdominal pain nausea or vomiting, patient denies any bleeding, upon arrival suspicious for UTI however urine culture blood culture no growth so far, will continue antibiotic for left arm wound, patient's left arm wound is seen by surgeon and healing, return to find a acute rehab place for the patient, resident care director is working will continue to monitor. (2) Arm wound: Qualifiers: Encounter type: initial encounter Laterality: left Qualified Code(s): S41.102A - Unspecified open wound of left upper arm, initial encounter Code(s): S41.109A - Unspecified open wound of unspecified upper arm, initial encounter Status: Acute Assessment and Plan: Secondary to fall plastic surgeon was consulted (3) Laceration of leg: Qualifiers: Encounter type: initial encounter Laterality: right Qualified Code(s): S81.811A - Laceration without foreign body, right lower leg, initial encounter Code(s): S81.819A - Laceration without foreign body, unspecified lower leg, initial encounter Status: Acute Assessment and Plan: Pending surgery evaluation (4) Alcohol intoxication: Qualifiers: Complication of substance-induced condition: uncomplicated Qualified Code(s): F10.920 - Alcohol use, unspecified with intoxication
[2021-03-30] MEDS: ACETAMINOPHEN 325 MG TABLET 650 MG PO (14:22)
[2021-03-30] MEDS: TIZANIDINE HCL 2 MG TABLET PO (14:23)
[2021-03-30 14:55] VITALS: BP 119/79; PULSE 115; RESP 18; TEMP 37.1; O2SAT 96
--- NOTE | 2021-03-30 16:18 | P.CDI_ITS ---
CDI Query Clarification Request Patient presented to ED via EMS on 03/26/21 with complaints of fall. Patient admitted with hyperkalemia, lacerations of arm and leg, alcohol intoxication. Hct/Hgb on admission 28.0/9.0. With decline, H/H on 03/26 revealed 18.3/5.9. Patient transfused 2 units PRBC, please specify a diagnosis to correlate with lab findings and treatment. * acute blood loss anemia * anemia of crhonic disease * chronic blood loss anemia * other anemia * other/unknown Thank you! <CARLOS Buenrostro - Last Filed: 03/30/21 16:26> Clarified Diagnosis (1) Anemia, chronic disease: Code(s): D63.8 - Anemia in other chronic diseases classified elsewhere <CARLOS Buenrostro - Last Filed: 03/30/21 16:26> Status: Acute <CARLOS Buenrostro - Last Filed: 03/30/21 16:26> Assessment and Plan: most likely patient has anemia of chronic disease due to chronic kidney disease as well as alcohol abuse <Elzbieta Umana MD - Last Filed: 04/18/21 18:17>
[2021-03-30 16:30] LABS: Glucose Point of Care 120 mg/dl (65-105)
--- NOTE | 2021-03-30 18:27 | WPDPN ---
Progress Note: A&P Assessment and Plan (1) Laceration of left upper arm: Onset Date: 03/2021 Code(s): S41.112A - Laceration without foreign body of left upper arm, initial encounter Status: Acute (2) Laceration of leg: Qualifiers: Encounter type: initial encounter Laterality: right Qualified Code(s): S81.811A - Laceration without foreign body, right lower leg, initial encounter Code(s): S81.819A - Laceration without foreign body, unspecified lower leg, initial encounter Status: Acute Additional Plan Folded 4 x 4 gauze and Tegaderm dressing to the left arm wound and to the right knee wound. The patient can be discharged at the discretion of other caretakers. It does not seem that he will need to follow up in my office. Subjective Date/time seen: 03/30/21 12:27 the patient has been transferred to [facility] room 249. Is lying on his back once again as a speak to him. Says he still having some trouble with deep breathing. The nurses a sure me his oxygen sats have been normal. He allows me to examine his arm by removing the bandage and had no pain complaints. The bandages show serous drainage on this occasion but there has been no maco blood. He moves his arm freely. The sutures on the posterior arm are noted to be intact. The bruising remains substantial. can be discharged at the discretion of other caretakers. A gauze and Tegaderm dressing should suffice for wound care. His sutures should be removed in approximately 10 days or 2 weeks from the date of placement. That to be done by another healthcare professional . Sutures on his right lateral knee should also be removed at that time. I do not believe he will require follow up in my office. Objective Data Vital Signs Vital Signs: Vital Signs - 24 hr 03/29/21 20:04 03/30/21 04:24 03/30/21 14:55 Temperature 97.9 F 98.9 F 98.7 F Pulse Rate 100 99 115 H Respiratory Rate 17 17 18 Blood Pressure 130/73 134/72 119/79 Pulse Oximetry 100 96 96 Intake/Output Intake/Output: Intake & Output 03/27/21 03/28/21 03/29/21 03/30/21 23:59 23:59 23:59 23:59 Intake Total 3666 2900 2146 690 Output Total 1025 3100 1100 1300 Balance 2641 -200 1046 -610 Meds/Results Medications: Active Medications Generic Name Dose Route Start Last Admin Trade Name Freq PRN Reason Stop Dose Admin Acetaminophen 650 mg 03/25/21 21:24 03/30/21 14:22 Acetaminophen 325 Mg Tablet PO 650 mg Q4H PRN Administration Mild Pain (1-3) or Fever Hydrocodone Bitart/Acetaminophen 1 tab 03/25/21 21:24 03/30/21 09:12 Hydrocodone/Acetaminophen (*Crx) 5-325 Mg Tablet PO 1 tab Q4H PRN Administration Pain Rated 4-6 Aspirin 81 mg 03/26/21 09:00 03/30/21 09:07 Aspirin 81 Mg Enteric Tablet PO 81 mg DAILY AGUILAR Administration Azelastine HCl 1 spray 03/26/21 09:05 03/30/21 09:06 Azelastine Hcl Nasal 0.1% 137 Mcg/Spr 30 Ml Btl NASAL 1 spray Q12HR AGUILAR Administration Calcium Carbonate 1,000 mg 03/26/21 09:00 03/30/21 09:06 Calcium Carbonate (Oscal) 500 Mg Tablet PO 1,000 mg DAILY AGUILAR Administration Chlordiazepoxide HCl 25 mg 03/26/21 11:03 Chlordiazepoxide (*Crx) 25 Mg Capsule PO Q6H PRN Withdrawal Cyclobenzaprine HCl 5 mg 03/28/21 15:34 03/30/21 09:13 Cyclobenzaprine Hcl 5 Mg Tablet PO 5 mg Q8H PRN Administration Muscle Spasm Dextrose 12.5 gm 03/26/21 09:04 Dextrose 50% 25 Gm/50 Ml Syringe IV PUSH PRN PRN Hypoglycemia Protocol Fentanyl Citrate 25 mcg 03/28/21 10:42 03/28/21 13:00 Fentanyl Citrate Inj (*Crx) 100 Mcg/2 Ml Vial IV PUSH 25 mcg Q2M PRN Administration Pain Fish Oil 1 gm 03/26/21 17:00 03/30/21 17:35 [place] 3 Polyunsat Fatty Acids 1 Gm Cap PO 1 gm BID AGUILAR Administration Folic Acid 1 mg 03/26/21 09:00 03/30/21 09:07 Folic Acid 1 Mg Tablet PO 1 mg DAILY AGUILAR Administration Gabapentin
[2021-03-30 19:32] LABS: Hematocrit 23.8 % (42.0-52.0); Hemoglobin 7.7 g/dL (14.0-18.0)
[2021-03-30 19:52] VITALS: BP 116/73; PULSE 92; RESP 16; TEMP 36.7; O2SAT 99
[2021-03-30] MEDS: INSULIN GLARGINE (*BKC) 100 UNITS/ML 10 UNITS SUB-Q (20:53)
[2021-03-30 21:25] LABS: Glucose Point of Care 122 mg/dl (65-105)
[2021-03-31] MEDS: MORPHINE SULFATE (*CRX) 2 MG/ML INJ IV PUSH ×2 (00:09→17:51)
[2021-03-31] MEDS: TIZANIDINE HCL 2 MG TABLET PO ×2 (03:00→20:45)
[2021-03-31] MEDS: HYDROcodone/acetaminophen (*CRX) 5-325 MG TABLET 1 TAB PO ×2 (03:00→20:44)
[2021-03-31 03:59] VITALS: BP 108/68; PULSE 90; RESP 17; TEMP 36.4; O2SAT 95
[2021-03-31 05:34] LABS: Albumin Level 2.2 g/dL (3.5-5.1); Anion Gap 4 mmol/L (8-16); Blood Urea Nitrogen 17 mg/dL (9-20); Calcium 8.6 mg/dL (8.4-10.2); Carbon Dioxide 25 mmol/L (22-30); Chloride 109 mmol/L (98-107); Estimated CRCL calculation 64 ml/min; Estimated Glomerular Filt Rate > 60; Glucose 126 mg/dL (65-110); Phosphorus 4.3 mg/dL (2.5-4.5); Potassium 3.9 mmol/L (3.4-5.0); Sodium 138 mmol/L (137-145)
[2021-03-31] MEDS: CENTRAL LINE FLUSH 10 ML IV PUSH ×3 (05:43→20:46)
[2021-03-31] MEDS: MINOCYCLINE HCL 50 MG CAPSULE 100 MG PO (05:43)
[2021-03-31] MEDS: gemfibroziL 600 MG TABLET PO ×2 (05:43→17:42)
[2021-03-31 08:18] LABS: Glucose Point of Care 105 mg/dl (65-105)
[2021-03-31] MEDS: FOLIC ACID 1 MG TABLET PO (08:51)
[2021-03-31] MEDS: ASPIRIN 81 MG ENTERIC TABLET PO (08:52)
[2021-03-31] MEDS: PYRIDOXINE HCL 50 MG TABLET 100 MG PO (08:52)
[2021-03-31] MEDS: SODIUM BICARBONATE TAB 650 MG TABLET PO ×2 (08:52→17:43)
[2021-03-31] MEDS: OMEGA 3 POLYUNSAT FATTY ACIDS 1 GM CAP PO ×2 (08:52→17:43)
[2021-03-31] MEDS: THIAMINE HCL 100 MG TABLET PO (08:52)
[2021-03-31] MEDS: CALCIUM CARBONATE (OSCAL) 500 MG TABLET 1000 MG PO (08:52)
[2021-03-31] MEDS: CHOLECALCIFEROL 1,000 UNITS TABLET 1000 UNITS PO (08:52)
[2021-03-31] MEDS: IPRATROPIUM NASAL SPRAY 0.03% 15 ML BOTTLE 2 SPRAY NASAL ×2 (08:53→20:43)
[2021-03-31] MEDS: predniSONE 5 MG TABLET PO (08:53)
[2021-03-31] MEDS: GABAPENTIN 100 MG CAPSULE 200 MG PO ×2 (08:53→17:43)
[2021-03-31] MEDS: MULTIVITAMINS THERAPEUTIC TAB (*BKC) 1 TABLET PO (08:53)
[2021-03-31] MEDS: AZELASTINE HCL NASAL 0.1% 137 MCG/SPR 30 ML BTL 1 SPRAY NASAL ×2 (08:54→20:43)
[2021-03-31] MEDS: ACETAMINOPHEN 325 MG TABLET 650 MG PO (09:05)
[2021-03-31] MEDS: IRON SUCROSE COMPLEX 200 MG in SODIUM CHLORIDE 0.9% IV 50 ML 240 MG IVPB (10:08)
[2021-03-31] MEDS: LIDOCAINE 5% PATCH 3 PATCH TRANSDERM (10:10)
[2021-03-31] MEDS: methocarbamoL 500 MG TABLET PO (10:13)
--- NOTE | 2021-03-31 10:31 | PM.IMPN ---
Progress Note: A&P Assessment and Plan (1) Acute hyperkalemia: Code(s): E87.5 - Hyperkalemia Status: Acute Assessment and Plan: Patient does not have IV access stat consult for surgery Give Kayexalate Give IV fluid Nephrology was consulted Repeat potassium level in 4 hours 03/27/2021 interval history: patient status post kidney transplant on immunosuppression therapy presented emergency depart after he failed getting out of the bathroom patient states he had drank 6 Vodkas, he struck his left arm and has a laceration also concern that he may have hit his head CT scan of the head is negative for any acute injury, patient had had x-ray of the head and humerus without any acute bony injury, today patient main complaint is back pain will give the patient Lidoderm patches and cyclobenzaprine, will have a PT OT evaluate the patient. patient seen by Nephrology patient has stage 3 chronic kidney disease, we have placed the patient under CIWA protocol Librium as needed. 03/28/2021 interval history: patient with laceration of left upper arm was seen by plastic surgeon was taken to the OR and the wound was repaired, patient continued to complain of back pain CT scan of the thoracic-lumbar spine showed acute transfers oblique fracture through T8 vertebrae body. patient denies any numbness weakness lower extremities, any numbness weakness and groin area and patient has a control over bowel and bladder, will continue Lidoderm patches, will increase Flexeril 5 mg t.i.d. as needed, patient with kidney transplant, with stage III chronic kidney disease seen by fast food fry cook and further recommendation to follow. 03/29/2021 interval history: patient with laceration of left upper arm on 03/28 was seen by plastic surgeon was taken to the OR and the wound was repaired, patient continued to complain of back pain CT scan of the thoracic-lumbar spine showed acute transfers oblique fracture through T8 vertebrae body. patient denies any numbness weakness lower extremities, any numbness weakness and groin area and patient has a control over bowel and bladder, continued Lidoderm patches and increased Flexeril 5 mg t.i.d. as needed, patient with kidney transplant, with stage III chronic kidney disease seen by fast food fry cook and further recommendation to follow, patient with anemia stool Hemoccult is negative most likely secondary to iron deficiency as well as due to chronic kidney disease patient is supplemented with IV iron and will continue to monitor. 03/30/2021 interval history: patient continue to have a pain and difficulty with taking deep breath due to pain in his ribs, patient denies abdominal pain nausea or vomiting, patient denies any bleeding, upon arrival suspicious for UTI however urine culture blood culture no growth so far, will continue antibiotic for left arm wound, patient's left arm wound is seen by surgeon and healing, return to find a acute rehab place for the patient, group care worker is working will continue to monitor. 03/31/2021 interval history: patient continue to have a pain and difficulty with taking deep breath due to pain in his right ribs will do x-ray of the right ribs, will apply Lidoderm patch, currently patient is working with occupational therapy, patient denies abdominal pain nausea or vomiting, patient denies any bleeding, upon arrival suspicious for UTI however urine culture blood culture no growth so far, will continue antibiotic for left arm wound, patient's left arm wound is seen by surgeon and healing, waiting to find a acute rehab place for the patient, group care worker is working will continue to monitor. (2) Arm wound: Qualifiers: Encounter type: initial encounter Laterality: left Qualified Code(s): S41.102A - Unspecified open wound of left upper arm, initial encounter Code(s): S41.109A - Unspecified open wound of unspecified upper arm, initial encounter Status: Acute Asses
[2021-03-31 10:39] VITALS: O2SAT 93
[2021-03-31 11:38] LABS: Glucose Point of Care 105 mg/dl (65-105)
[2021-03-31] MEDS: ERTAPENEM 1 GM/NS 50 ML 1 GM/50 ML BAG IVPB (12:25)
--- NOTE | 2021-03-31 12:54 | WPDPN ---
Progress Note: A&P Assessment and Plan (1) Laceration of left upper arm: Onset Date: 03/2021 Code(s): S41.112A - Laceration without foreign body of left upper arm, initial encounter Status: Acute Additional Plan Dressing care. Should do well. Subjective Date/time seen: 03/31/21 12:54 No new complaints. Serous drainage continues into dressing. Arm and forearm remain bruised and edematous. Pt's activity remains limited by his thoracic spinal fracture. Objective Data Vital Signs Vital Signs: Vital Signs - 24 hr 03/30/21 14:55 03/30/21 19:52 03/31/21 03:59 Temperature 98.7 F 98.1 F 97.5 F L Pulse Rate 115 H 92 90 Respiratory Rate 18 16 17 Blood Pressure 119/79 116/73 108/68 Pulse Oximetry 96 99 95 03/31/21 10:39 Temperature Pulse Rate Respiratory Rate Blood Pressure Pulse Oximetry 93 Intake/Output Intake/Output: Intake & Output 03/28/21 03/29/21 03/30/21 03/31/21 23:59 23:59 23:59 23:59 Intake Total 2900 2146 1040 550 Output Total 3100 1100 1700 600 Balance -200 1046 -660 -50 Meds/Results Medications: Active Medications Generic Name Dose Route Start Last Admin Trade Name Freq PRN Reason Stop Dose Admin Acetaminophen 650 mg 03/25/21 21:24 03/31/21 09:05 Acetaminophen 325 Mg Tablet PO 650 mg Q4H PRN Administration Mild Pain (1-3) or Fever Hydrocodone Bitart/Acetaminophen 1 tab 03/25/21 21:24 03/31/21 03:00 Hydrocodone/Acetaminophen (*Crx) 5-325 Mg Tablet PO 1 tab Q4H PRN Administration Pain Rated 4-6 Aspirin 81 mg 03/26/21 09:00 03/31/21 08:52 Aspirin 81 Mg Enteric Tablet PO 81 mg DAILY AGUILAR Administration Azelastine HCl 1 spray 03/26/21 09:05 03/31/21 08:54 Azelastine Hcl Nasal 0.1% 137 Mcg/Spr 30 Ml Btl NASAL 1 spray Q12HR AGUILAR Administration Calcium Carbonate 1,000 mg 03/26/21 09:00 03/31/21 08:52 Calcium Carbonate (Oscal) 500 Mg Tablet PO 1,000 mg DAILY AGUILAR Administration Chlordiazepoxide HCl 25 mg 03/26/21 11:03 Chlordiazepoxide (*Crx) 25 Mg Capsule PO Q6H PRN Withdrawal Cyclobenzaprine HCl 5 mg 03/28/21 15:34 03/30/21 20:47 Cyclobenzaprine Hcl 5 Mg Tablet PO 5 mg Q8H PRN Administration Muscle Spasm Dextrose 12.5 gm 03/26/21 09:04 Dextrose 50% 25 Gm/50 Ml Syringe IV PUSH PRN PRN Hypoglycemia Protocol Fentanyl Citrate 25 mcg 03/28/21 10:42 03/28/21 13:00 Fentanyl Citrate Inj (*Crx) 100 Mcg/2 Ml Vial IV PUSH 25 mcg Q2M PRN Administration Pain Fish Oil 1 gm 03/26/21 17:00 03/31/21 08:52 [place] 3 Polyunsat Fatty Acids 1 Gm Cap PO 1 gm BID AGUILAR Administration Folic Acid 1 mg 03/26/21 09:00 03/31/21 08:51 Folic Acid 1 Mg Tablet PO 1 mg DAILY AGUILAR Administration Gabapentin 200 mg 03/26/21 17:00 03/31/21 08:53 Gabapentin 100 Mg Capsule PO 200 mg BID AGUILAR Administration Gemfibrozil 600 mg 03/26/21 09:00 03/31/21 05:43 Gemfibrozil 600 Mg Tablet PO 600 mg BIDAC AGUILAR Administration Glucagon 1 mg 03/26/21 09:04 Glucagon For Inj 1 Mg Vial IM PRN PRN Hypoglycemia Protocol Glucose 15 gm 03/26/21 09:04 Glucose Oral Gel 15 Gm Of Glucse In 37.5 Gm Tube PO PRN PRN Hypoglycemia Protocol Home Med 1 each 03/26/21 13:15 03/31/21 08:54 Home Med Tacrolimus 1 Mg Cap PO 04/25/21 13:14 1 each Q12HR AGUILAR Administration Dextrose 1,000 mls @ 100 mls/hr 03/26/21 09:04 Dextrose 5% 1,000 Ml IVPB PRN PRN Hypoglycemia Protocol Ertapenem 1 gm in 50 mls @ 100 mls/hr 03/26/21 12:00 03/31/21 12:25 Invanz 1 Gm/Ns 50 Ml IVPB 100 mls/hr Q24H AGUILAR Administration Vancomycin HCl 1,250 mg in 250 mls @ 200 mls/hr 03/29/21 00:00 03/31/21 01:17 Vancomycin 1,250 Mg/D5w 250 Ml IVPB Infused Q24H AGUILAR Infusion Insulin Aspart 3 - 6 units 03/26/21 12:00 03/31/21 12:25 Insulin Aspart (*Bkc) 100 Units/Ml SUB-Q Not Given TIDWM AGUILAR Protoc
[2021-03-31 16:27] LABS: Glucose Point of Care 124 mg/dl (65-105)
[2021-03-31 18:00] VITALS: BP 148/78; PULSE 117; RESP 16; TEMP 36.8; O2SAT 98
[2021-03-31 19:20] LABS: Hematocrit 25.1 % (42.0-52.0)
[2021-03-31] MEDS: INSULIN GLARGINE (*BKC) 100 UNITS/ML 10 UNITS SUB-Q (20:48)
[2021-03-31 22:17] LABS: Glucose Point of Care 110 mg/dl (65-105)
[2021-03-31 22:26] VITALS: BP 106/54; PULSE 88; RESP 18; TEMP 36.6; O2SAT 98
[2021-03-31 23:48] LABS: Vancomycin Trough 19.4 ug/mL (10.0-20.0)
[2021-04-01] MEDS: MORPHINE SULFATE (*CRX) 2 MG/ML INJ IV PUSH (00:23)
[2021-04-01 04:36] VITALS: BP 141/82; PULSE 112; RESP 18; TEMP 36.1; O2SAT 98
[2021-04-01] MEDS: CENTRAL LINE FLUSH 10 ML IV PUSH ×3 (06:14→20:44)
[2021-04-01] MEDS: ACETAMINOPHEN 325 MG TABLET 650 MG PO (06:15)
[2021-04-01] MEDS: gemfibroziL 600 MG TABLET PO ×2 (06:16→17:24)
[2021-04-01] MEDS: MINOCYCLINE HCL 50 MG CAPSULE 100 MG PO (06:16)
[2021-04-01 06:38] LABS: Albumin Level 2.6 g/dL (3.5-5.1); Anion Gap 3 mmol/L (8-16); Blood Urea Nitrogen 16 mg/dL (9-20); Carbon Dioxide 26 mmol/L (22-30); Chloride 109 mmol/L (98-107); Estimated CRCL calculation 70 ml/min; Estimated Glomerular Filt Rate > 60; Glucose 79 mg/dL (65-110); Sodium 138 mmol/L (137-145)
[2021-04-01] MEDS: IPRATROPIUM NASAL SPRAY 0.03% 15 ML BOTTLE 2 SPRAY NASAL ×2 (08:03→20:36)
[2021-04-01] MEDS: AZELASTINE HCL NASAL 0.1% 137 MCG/SPR 30 ML BTL 1 SPRAY NASAL ×2 (08:03→20:36)
[2021-04-01] MEDS: THIAMINE HCL 100 MG TABLET PO (08:05)
[2021-04-01] MEDS: PYRIDOXINE HCL 50 MG TABLET 100 MG PO (08:05)
[2021-04-01] MEDS: OMEGA 3 POLYUNSAT FATTY ACIDS 1 GM CAP PO ×2 (08:06→17:24)
[2021-04-01] MEDS: CALCIUM CARBONATE (OSCAL) 500 MG TABLET 1000 MG PO (08:06)
[2021-04-01] MEDS: SODIUM BICARBONATE TAB 650 MG TABLET PO ×2 (08:06→17:25)
[2021-04-01] MEDS: predniSONE 5 MG TABLET PO (08:06)
[2021-04-01] MEDS: GABAPENTIN 100 MG CAPSULE 200 MG PO ×2 (08:06→17:25)
[2021-04-01] MEDS: ASPIRIN 81 MG ENTERIC TABLET PO (08:06)
[2021-04-01] MEDS: MULTIVITAMINS THERAPEUTIC TAB (*BKC) 1 TABLET PO (08:06)
[2021-04-01] MEDS: FOLIC ACID 1 MG TABLET PO (08:06)
[2021-04-01] MEDS: CHOLECALCIFEROL 1,000 UNITS TABLET 1000 UNITS PO (08:06)
[2021-04-01] MEDS: LIDOCAINE 5% PATCH 3 PATCH TRANSDERM (08:07)
[2021-04-01 10:06] LABS: Glucose Point of Care 82 mg/dl (65-105)
[2021-04-01 11:29] LABS: Glucose Point of Care 92 mg/dl (65-105)
[2021-04-01] MEDS: ERTAPENEM 1 GM/NS 50 ML 1 GM/50 ML BAG IVPB (13:01)
[2021-04-01 13:10] VITALS: BP 135/72; PULSE 114; RESP 16; TEMP 36.5; O2SAT 95
--- NOTE | 2021-04-01 14:07 | PM.IMPN ---
Progress Note: A&P Assessment and Plan (1) Acute hyperkalemia: Code(s): E87.5 - Hyperkalemia Status: Acute Assessment and Plan: Patient does not have IV access stat consult for surgery Give Kayexalate Give IV fluid Nephrology was consulted Repeat potassium level in 4 hours 03/27/2021 interval history: patient status post kidney transplant on immunosuppression therapy presented emergency depart after he failed getting out of the bathroom patient states he had drank 6 Vodkas, he struck his left arm and has a laceration also concern that he may have hit his head CT scan of the head is negative for any acute injury, patient had had x-ray of the head and humerus without any acute bony injury, today patient main complaint is back pain will give the patient Lidoderm patches and cyclobenzaprine, will have a PT OT evaluate the patient. patient seen by Nephrology patient has stage 3 chronic kidney disease, we have placed the patient under CIWA protocol Librium as needed. 03/28/2021 interval history: patient with laceration of left upper arm was seen by plastic surgeon was taken to the OR and the wound was repaired, patient continued to complain of back pain CT scan of the thoracic-lumbar spine showed acute transfers oblique fracture through T8 vertebrae body. patient denies any numbness weakness lower extremities, any numbness weakness and groin area and patient has a control over bowel and bladder, will continue Lidoderm patches, will increase Flexeril 5 mg t.i.d. as needed, patient with kidney transplant, with stage III chronic kidney disease seen by management architect and further recommendation to follow. 03/29/2021 interval history: patient with laceration of left upper arm on 03/28 was seen by plastic surgeon was taken to the OR and the wound was repaired, patient continued to complain of back pain CT scan of the thoracic-lumbar spine showed acute transfers oblique fracture through T8 vertebrae body. patient denies any numbness weakness lower extremities, any numbness weakness and groin area and patient has a control over bowel and bladder, continued Lidoderm patches and increased Flexeril 5 mg t.i.d. as needed, patient with kidney transplant, with stage III chronic kidney disease seen by management architect and further recommendation to follow, patient with anemia stool Hemoccult is negative most likely secondary to iron deficiency as well as due to chronic kidney disease patient is supplemented with IV iron and will continue to monitor. 03/30/2021 interval history: patient continue to have a pain and difficulty with taking deep breath due to pain in his ribs, patient denies abdominal pain nausea or vomiting, patient denies any bleeding, upon arrival suspicious for UTI however urine culture blood culture no growth so far, will continue antibiotic for left arm wound, patient's left arm wound is seen by surgeon and healing, return to find a acute rehab place for the patient, childcare teacher is working will continue to monitor. 03/31/2021 interval history: patient continue to have a pain and difficulty with taking deep breath due to pain in his right ribs will do x-ray of the right ribs, will apply Lidoderm patch, currently patient is working with occupational therapy, patient denies abdominal pain nausea or vomiting, patient denies any bleeding, upon arrival suspicious for UTI however urine culture blood culture no growth so far, will continue antibiotic for left arm wound, patient's left arm wound is seen by surgeon and healing, waiting to find a acute rehab place for the patient, childcare teacher is working will continue to monitor. 04/01/2021 interval history: patient continue to have a pain and difficulty with taking deep breath due to pain in his right ribs x-ray of the right ribs, it showed Acute anterolateral fractures of the right fourth through sixth ribs and possible right 10th rib fracture. will apply Lidoderm patch, today patient st
[2021-04-01 16:44] LABS: Glucose Point of Care 112 mg/dl (65-105)
[2021-04-01] MEDS: CENTRAL LINE FLUSH 20 ML IV PUSH (17:32)
[2021-04-01 17:43] LABS: Hematocrit 27.7 % (42.0-52.0); Hemoglobin 8.6 g/dL (14.0-18.0)
[2021-04-01 20:00] VITALS: PULSE 111; RESP 20; O2SAT 99
[2021-04-01 22:00] VITALS: BP 153/95; PULSE 111; RESP 20; TEMP 36.7; O2SAT 99
[2021-04-01 22:47] LABS: Glucose Point of Care 87 mg/dl (65-105)
[2021-04-02] MEDS: HYDROcodone/acetaminophen (*CRX) 5-325 MG TABLET 1 TAB PO (00:46)
[2021-04-02 06:00] VITALS: BP 138/79; PULSE 106; RESP 21; TEMP 36.6; O2SAT 100
[2021-04-02 07:00] LABS: Glucose Point of Care 77 mg/dl (65-105)
[2021-04-02 08:17] LABS: Glucose Point of Care 90 mg/dl (65-105)
[2021-04-02] MEDS: MINOCYCLINE HCL 50 MG CAPSULE 100 MG PO (09:45)
[2021-04-02] MEDS: gemfibroziL 600 MG TABLET PO ×2 (09:45→16:52)
[2021-04-02] MEDS: GABAPENTIN 100 MG CAPSULE 200 MG PO ×2 (09:46→16:51)
[2021-04-02] MEDS: ASPIRIN 81 MG ENTERIC TABLET PO (09:46)
[2021-04-02] MEDS: FOLIC ACID 1 MG TABLET PO (09:47)
[2021-04-02] MEDS: SODIUM BICARBONATE TAB 650 MG TABLET PO ×2 (09:48→16:52)
[2021-04-02] MEDS: OMEGA 3 POLYUNSAT FATTY ACIDS 1 GM CAP PO ×2 (09:48→16:52)
[2021-04-02] MEDS: predniSONE 5 MG TABLET PO (09:48)
[2021-04-02] MEDS: CENTRAL LINE FLUSH 10 ML IV PUSH ×3 (09:55→20:40)
[2021-04-02] MEDS: PYRIDOXINE HCL 50 MG TABLET 100 MG PO (11:57)
[2021-04-02] MEDS: CHOLECALCIFEROL 1,000 UNITS TABLET 1000 UNITS PO (11:57)
[2021-04-02] MEDS: CALCIUM CARBONATE (OSCAL) 500 MG TABLET 1000 MG PO (11:57)
[2021-04-02] MEDS: MULTIVITAMINS THERAPEUTIC TAB (*BKC) 1 TABLET PO (11:57)
[2021-04-02] MEDS: THIAMINE HCL 100 MG TABLET PO (11:57)
[2021-04-02] MEDS: AZELASTINE HCL NASAL 0.1% 137 MCG/SPR 30 ML BTL 1 SPRAY NASAL (11:58)
[2021-04-02] MEDS: IPRATROPIUM NASAL SPRAY 0.03% 15 ML BOTTLE 2 SPRAY NASAL (11:58)
[2021-04-02] MEDS: ERTAPENEM 1 GM/NS 50 ML 1 GM/50 ML BAG IVPB (11:59)
[2021-04-02 12:03] LABS: Glucose Point of Care 115 mg/dl (65-105)
[2021-04-02 13:45] VITALS: BP 155/93; PULSE 113; RESP 18; TEMP 36.7; O2SAT 99
--- NOTE | 2021-04-02 13:51 | PM.PNNEP ---
Progress Note: A&P Assessment and Plan (1) Chronic kidney disease: Qualifiers: Chronic kidney disease stage: stage 3 (moderate) Chronic kidney disease stage 3 subtype: stage 3b (GFR 30-44) Qualified Code(s): N18.32 - Chronic kidney disease, stage 3b Code(s): N18.9 - Chronic kidney disease, unspecified Status: Chronic Assessment and Plan: history of end-stage renal disease starting dialysis in the and got a kidney transplant in 2007 baseline creatinine has been fluctuating ~ 1.4 - 1.7mg/dl (placing him at CKD stage 3B) remains on prednisone and tacrolimus for his renal transplant creatine better than baseline -- suspect due to bed bound status and possibly diminished oral intake (2) Fall: Qualifiers: Encounter type: initial encounter Qualified Code(s): W19.XXXA - Unspecified fall, initial encounter Code(s): W19.XXXA - Unspecified fall, initial encounter Status: Acute Assessment and Plan: occurs frequently apparently possibly due to alcohol use +/- gabapentin gabapentin being weaned (3) Acute hyperkalemia: Code(s): E87.5 - Hyperkalemia Status: Acute Assessment and Plan: resolved follow trend of repeat potassium levels Will continue to follow from a distance. Subjective Date/time seen: 04/02/21 13:51 Still with issues related to pain control secondary to rib fractures; BP elevated but suspect pain issues partly to blame; no other acute issues/events overnight or earlier this AM; renal function remains stable with reasonable urine output. Exam Narrative: General: WD/WN male in NAD Heart: normal S1 and S2; no rub Lungs: clear to auscultation Abdomen: soft, nontender, nondistended, positive bowel sounds Extremities: no cyanosis or clubbing; no edema Skin: warm and dry; healing bruises Objective Data Vital Signs Vital Signs: Vital Signs Temp Pulse Resp BP Pulse Ox 04/02/21 06:00 36.6 C 106 H 21 H 138/79 100 04/01/21 22:00 36.7 C 111 H 20 153/95 H 99 04/01/21 20:00 111 H 20 99 Intake/Output Intake/Output: Intake & Output 03/30/21 03/31/21 04/01/21 04/02/21 23:59 23:59 23:59 23:59 Intake Total 1040 1800 1070 500 Output Total 1700 1325 1620 700 Balance -660 475 -550 -200 Meds/Results Medications: Active Medications Generic Name Dose Route Start Last Admin Trade Name Roz PRN Reason Stop Dose Admin Acetaminophen 650 mg 03/25/21 21:24 04/01/21 06:15 Acetaminophen 325 Mg Tablet PO 650 mg Q4H PRN Administration Mild Pain (1-3) or Fever Hydrocodone Bitart/Acetaminophen 1 tab 03/25/21 21:24 04/02/21 00:46 Hydrocodone/Acetaminophen (*Crx) 5-325 Mg Tablet PO 1 tab Q4H PRN Administration Pain Rated 4-6 Aspirin 81 mg 03/26/21 09:00 04/02/21 09:46 Aspirin 81 Mg Enteric Tablet PO 81 mg DAILY AGUILAR Administration Azelastine HCl 1 spray 03/26/21 09:05 04/02/21 11:58 Azelastine Hcl Nasal 0.1% 137 Mcg/Spr 30 Ml Btl NASAL 1 spray Q12HR AGUILAR Administration Calcium Carbonate 1,000 mg 03/26/21 09:00 04/02/21 11:57 Calcium Carbonate (Oscal) 500 Mg Tablet PO 1,000 mg DAILY AGUILAR Administration Chlordiazepoxide HCl 25 mg 03/26/21 11:03 Chlordiazepoxide (*Crx) 25 Mg Capsule PO Q6H PRN Withdrawal Cyclobenzaprine HCl 5 mg 03/28/21 15:34 03/30/21 20:47 Cyclobenzaprine Hcl 5 Mg Tablet PO 5 mg Q8H PRN Administration Muscle Spasm Dextrose 12.5 gm 03/26/21 09:04 Dextrose 50% 25 Gm/50 Ml Syringe IV PUSH PRN PRN Hypoglycemia Protocol Fentanyl Citrate 25 mcg 03/28/21 10:42 03/28/21 13:00 Fentanyl Citrate Inj (*Crx) 100 Mcg/2 Ml Vial IV PUSH 25 mcg Q2M PRN Administration Pain Fish Oil 1 gm 03/26/21 17:00 04/02/21 09:48 [place] 3 Polyunsat Fatty Acids 1 Gm Cap PO 1 gm BID AGUILAR Administration Folic Acid 1 mg 03/26/21 09:00 04/02/21 09:47 Folic Acid 1 Mg Tablet
--- NOTE | 2021-04-02 14:11 | PM.IMPN ---
Progress Note: A&P Assessment and Plan (1) Acute hyperkalemia: Code(s): E87.5 - Hyperkalemia Status: Acute Assessment and Plan: Patient does not have IV access stat consult for surgery Give Kayexalate Give IV fluid Nephrology was consulted Repeat potassium level in 4 hours 03/27/2021 interval history: patient status post kidney transplant on immunosuppression therapy presented emergency depart after he failed getting out of the bathroom patient states he had drank 6 Vodkas, he struck his left arm and has a laceration also concern that he may have hit his head CT scan of the head is negative for any acute injury, patient had had x-ray of the head and humerus without any acute bony injury, today patient main complaint is back pain will give the patient Lidoderm patches and cyclobenzaprine, will have a PT OT evaluate the patient. patient seen by Nephrology patient has stage 3 chronic kidney disease, we have placed the patient under CIWA protocol Librium as needed. 03/28/2021 interval history: patient with laceration of left upper arm was seen by plastic surgeon was taken to the OR and the wound was repaired, patient continued to complain of back pain CT scan of the thoracic-lumbar spine showed acute transfers oblique fracture through T8 vertebrae body. patient denies any numbness weakness lower extremities, any numbness weakness and groin area and patient has a control over bowel and bladder, will continue Lidoderm patches, will increase Flexeril 5 mg t.i.d. as needed, patient with kidney transplant, with stage III chronic kidney disease seen by lamp shade sewer and further recommendation to follow. 03/29/2021 interval history: patient with laceration of left upper arm on 03/28 was seen by plastic surgeon was taken to the OR and the wound was repaired, patient continued to complain of back pain CT scan of the thoracic-lumbar spine showed acute transfers oblique fracture through T8 vertebrae body. patient denies any numbness weakness lower extremities, any numbness weakness and groin area and patient has a control over bowel and bladder, continued Lidoderm patches and increased Flexeril 5 mg t.i.d. as needed, patient with kidney transplant, with stage III chronic kidney disease seen by lamp shade sewer and further recommendation to follow, patient with anemia stool Hemoccult is negative most likely secondary to iron deficiency as well as due to chronic kidney disease patient is supplemented with IV iron and will continue to monitor. 03/30/2021 interval history: patient continue to have a pain and difficulty with taking deep breath due to pain in his ribs, patient denies abdominal pain nausea or vomiting, patient denies any bleeding, upon arrival suspicious for UTI however urine culture blood culture no growth so far, will continue antibiotic for left arm wound, patient's left arm wound is seen by surgeon and healing, return to find a acute rehab place for the patient, clinical care manager is working will continue to monitor. 03/31/2021 interval history: patient continue to have a pain and difficulty with taking deep breath due to pain in his right ribs will do x-ray of the right ribs, will apply Lidoderm patch, currently patient is working with occupational therapy, patient denies abdominal pain nausea or vomiting, patient denies any bleeding, upon arrival suspicious for UTI however urine culture blood culture no growth so far, will continue antibiotic for left arm wound, patient's left arm wound is seen by surgeon and healing, waiting to find a acute rehab place for the patient, clinical care manager is working will continue to monitor. 04/01/2021 interval history: patient continue to have a pain and difficulty with taking deep breath due to pain in his right ribs x-ray of the right ribs, it showed Acute anterolateral fractures of the right fourth through sixth ribs and possible right 10th rib fracture. will apply Lidoderm patch, today patient st
[2021-04-02 16:35] LABS: Glucose Point of Care 111 mg/dl (65-105)
[2021-04-02 17:07] LABS: Hematocrit 28.3 % (42.0-52.0); Hemoglobin 9.1 g/dL (14.0-18.0)
[2021-04-02 17:20] LABS: Anion Gap 4 mmol/L (8-16); Blood Urea Nitrogen 17 mg/dL (9-20); Calcium 9.2 mg/dL (8.4-10.2); Carbon Dioxide 27 mmol/L (22-30); Chloride 108 mmol/L (98-107); Estimated CRCL calculation 62 ml/min; Estimated Glomerular Filt Rate > 60; Glucose 116 mg/dL (65-110); Phosphorus 4.6 mg/dL (2.5-4.5); Potassium 4.4 mmol/L (3.4-5.0); Sodium 139 mmol/L (137-145)
[2021-04-02 19:15] VITALS: BP 168/90; PULSE 102; RESP 18; TEMP 37.1; O2SAT 99
[2021-04-02 20:00] VITALS: PULSE 102; RESP 18; O2SAT 99
[2021-04-02] MEDS: INSULIN GLARGINE (*BKC) 100 UNITS/ML 10 UNITS SUB-Q (20:39)
[2021-04-02 20:45] LABS: Glucose Point of Care 117 mg/dl (65-105)
[2021-04-02] MEDS: LORazepam INJ (*CRX) 2 MG/ML VIAL 1 MG IV PUSH (22:43)
[2021-04-03 00:58] LABS: Vancomycin Trough 16.1 ug/mL (10.0-20.0)
[2021-04-03 02:56] VITALS: BP 150/89; PULSE 102; RESP 22; TEMP 36.4; O2SAT 94
[2021-04-03 05:26] LABS: Albumin Level 3.1 g/dL (3.5-5.1); Anion Gap 7 mmol/L (8-16); Blood Urea Nitrogen 18 mg/dL (9-20); Calcium 9.2 mg/dL (8.4-10.2); Carbon Dioxide 27 mmol/L (22-30); Chloride 106 mmol/L (98-107); Estimated CRCL calculation 62 ml/min; Estimated Glomerular Filt Rate > 60; Glucose 68 mg/dL (65-110); Phosphorus 4.2 mg/dL (2.5-4.5); Potassium 3.7 mmol/L (3.4-5.0); Sodium 140 mmol/L (137-145)
[2021-04-03] MEDS: MINOCYCLINE HCL 50 MG CAPSULE 100 MG PO (05:51)
[2021-04-03] MEDS: gemfibroziL 600 MG TABLET PO ×2 (05:52→17:14)
[2021-04-03] MEDS: CENTRAL LINE FLUSH 10 ML IV PUSH ×3 (05:52→20:07)
[2021-04-03] MEDS: LIDOCAINE 5% PATCH 3 PATCH TRANSDERM (08:22)
[2021-04-03] MEDS: GABAPENTIN 100 MG CAPSULE 200 MG PO ×2 (08:23→17:14)
[2021-04-03] MEDS: OMEGA 3 POLYUNSAT FATTY ACIDS 1 GM CAP PO ×2 (08:23→17:14)
[2021-04-03] MEDS: SODIUM BICARBONATE TAB 650 MG TABLET PO ×2 (08:23→17:14)
[2021-04-03] MEDS: ASPIRIN 81 MG ENTERIC TABLET PO (08:23)
[2021-04-03] MEDS: FOLIC ACID 1 MG TABLET PO (08:23)
[2021-04-03] MEDS: MULTIVITAMINS THERAPEUTIC TAB (*BKC) 1 TABLET PO (08:23)
[2021-04-03] MEDS: predniSONE 5 MG TABLET PO (08:23)
[2021-04-03] MEDS: THIAMINE HCL 100 MG TABLET PO (08:23)
[2021-04-03] MEDS: CHOLECALCIFEROL 1,000 UNITS TABLET 1000 UNITS PO (08:23)
[2021-04-03] MEDS: IPRATROPIUM NASAL SPRAY 0.03% 15 ML BOTTLE 2 SPRAY NASAL ×2 (08:24→20:08)
[2021-04-03] MEDS: CALCIUM CARBONATE (OSCAL) 500 MG TABLET 1000 MG PO (08:24)
[2021-04-03] MEDS: PYRIDOXINE HCL 50 MG TABLET 100 MG PO (08:24)
[2021-04-03] MEDS: AZELASTINE HCL NASAL 0.1% 137 MCG/SPR 30 ML BTL 1 SPRAY NASAL ×2 (08:25→20:06)
[2021-04-03 08:50] LABS: Glucose Point of Care 57 mg/dl (65-105)
[2021-04-03 09:16] LABS: Glucose Point of Care 126 mg/dl (65-105)
--- NOTE | 2021-04-03 10:09 | PM.IMPN ---
Progress Note: A&P Assessment and Plan (1) Acute hyperkalemia: Code(s): E87.5 - Hyperkalemia Status: Acute Assessment and Plan: Status post Give Kayexalate Give IV fluid Nephrology was consulted (2) Arm wound: Qualifiers: Encounter type: initial encounter Laterality: left Qualified Code(s): S41.102A - Unspecified open wound of left upper arm, initial encounter Code(s): S41.109A - Unspecified open wound of unspecified upper arm, initial encounter Status: Acute Assessment and Plan: Secondary to fall plastic surgeon was consulted status post repair (3) Laceration of leg: Qualifiers: Encounter type: initial encounter Laterality: right Qualified Code(s): S81.811A - Laceration without foreign body, right lower leg, initial encounter Code(s): S81.819A - Laceration without foreign body, unspecified lower leg, initial encounter Status: Acute Assessment and Plan: Continue wound dressing (4) Alcohol intoxication: Qualifiers: Complication of substance-induced condition: uncomplicated Qualified Code(s): F10.920 - Alcohol use, unspecified with intoxication, uncomplicated Code(s): F10.929 - Alcohol use, unspecified with intoxication, unspecified Status: Acute Assessment and Plan: Counseling monitor for alcohol withdrawal Vitamin replaced (5) Ulcer of toe: Qualifiers: Laterality: right Non-pressure ulcer stage: with fat layer exposed Qualified Code(s): L97.512 - Non-pressure chronic ulcer of other part of right foot with fat layer exposed Code(s): L97.509 - Non-pressure chronic ulcer of other part of unspecified foot with unspecified severity Status: Acute Assessment and Plan: Wound care consult (6) Fall: Qualifiers: Encounter type: initial encounter Qualified Code(s): W19.XXXA - Unspecified fall, initial encounter Code(s): W19.XXXA - Unspecified fall, initial encounter Status: Acute Assessment and Plan: PT OT eval (7) MANUEL (obstructive sleep apnea): Code(s): G47.33 - Obstructive sleep apnea (adult) (pediatric) Status: Acute Assessment and Plan: Continue home treatment (8) Chronic kidney disease, stage 3 unspecified: Code(s): N18.30 - Chronic kidney disease, stage 3 unspecified Status: Acute Assessment and Plan: History of kidney transplant on tacrolimus patient also on Bactrim DC Bactrim because of hyperkalemia Nephrology consult monitor BMP (9) Diabetes: Qualifiers: Diabetes mellitus type: type 2 Diabetes mellitus senior living insulin use: with senior living use Diabetes mellitus complication status: with kidney complications Diabetes mellitus complication detail: with chronic kidney disease Chronic kidney disease stage: unspecified stage Qualified Code(s): E11.22 - Type 2 diabetes mellitus with diabetic chronic kidney disease; Z79.4 - long term care pharmacist (current) use of insulin Code(s): E11.9 - Type 2 diabetes mellitus without complications Status: Acute Assessment and Plan: Insulin sliding scale Lantus (10) Cirrhosis of liver with ascites: Code(s): K74.60 - Unspecified cirrhosis of liver; R18.8 - Other ascites Status: Acute Assessment and Plan: Avoid hepatotoxic medication Monitor closely Check ammonia level (11) Chronic pain disorder: Code(s): G89.4 - Chronic pain syndrome Status: Acute Assessment and Plan: Complicated decision regarding pain medication as patient has chronic pain syndrome and history of liver failure and kidney failure (12) Chronic low back pain with sciatica: Code(s): M54.40 - Lumbago with sciatica, unspecified side; G89.29 - Other chronic pain Status: Acute Assessment and Plan: Pain control (13) Benign essential hypertension: Code(s): I10 - Essential (primary) hypertension Status: Ac
[2021-04-03 10:49] VITALS: BMI 28.8
[2021-04-03 11:37] LABS: Glucose Point of Care 109 mg/dl (65-105)
[2021-04-03] MEDS: ERTAPENEM 1 GM/NS 50 ML 1 GM/50 ML BAG IVPB (12:39)
[2021-04-03] MEDS: chlordiazePOXIDE (*CRX) 25 MG CAPSULE PO (12:45)
[2021-04-03 14:42] VITALS: BP 140/92; PULSE 127; RESP 20; TEMP 36.7; O2SAT 98
[2021-04-03 16:55] LABS: Glucose Point of Care 103 mg/dl (65-105)
[2021-04-03 19:17] VITALS: BP 153/88; PULSE 112; RESP 20; TEMP 36.6; O2SAT 100
[2021-04-03 20:00] VITALS: PULSE 112; RESP 20; O2SAT 100
[2021-04-03 20:21] LABS: Glucose Point of Care 136 mg/dl (65-105)
[2021-04-04 04:05] VITALS: BP 158/95; PULSE 114; RESP 20; TEMP 37.1; O2SAT 100
[2021-04-04 04:20] LABS: Albumin Level 3.1 g/dL (3.5-5.1); Anion Gap 5 mmol/L (8-16); Blood Urea Nitrogen 18 mg/dL (9-20); Carbon Dioxide 27 mmol/L (22-30); Chloride 107 mmol/L (98-107); Estimated CRCL calculation 62 ml/min; Estimated Glomerular Filt Rate > 60; Glucose 107 mg/dL (65-110); Phosphorus 4.2 mg/dL (2.5-4.5); Sodium 139 mmol/L (137-145)
[2021-04-04] MEDS: gemfibroziL 600 MG TABLET PO ×2 (05:22→17:13)
[2021-04-04] MEDS: MINOCYCLINE HCL 50 MG CAPSULE 100 MG PO (05:22)
[2021-04-04] MEDS: CENTRAL LINE FLUSH 10 ML IV PUSH ×3 (05:22→22:18)
[2021-04-04 07:44] LABS: Glucose Point of Care 99 mg/dl (65-105)
--- NOTE | 2021-04-04 08:29 | PM.IMPN ---
Progress Note: A&P Assessment and Plan (1) Acute hyperkalemia: Code(s): E87.5 - Hyperkalemia Status: Acute Assessment and Plan: Status post Kayexalate IV fluid Nephrology was consulted Resolved (2) Arm wound: Qualifiers: Encounter type: initial encounter Laterality: left Qualified Code(s): S41.102A - Unspecified open wound of left upper arm, initial encounter Code(s): S41.109A - Unspecified open wound of unspecified upper arm, initial encounter Status: Acute Assessment and Plan: Secondary to fall plastic surgeon was consulted status post repair (3) Laceration of leg: Qualifiers: Encounter type: initial encounter Laterality: right Qualified Code(s): S81.811A - Laceration without foreign body, right lower leg, initial encounter Code(s): S81.819A - Laceration without foreign body, unspecified lower leg, initial encounter Status: Acute Assessment and Plan: Continue wound dressing (4) Alcohol intoxication: Qualifiers: Complication of substance-induced condition: uncomplicated Qualified Code(s): F10.920 - Alcohol use, unspecified with intoxication, uncomplicated Code(s): F10.929 - Alcohol use, unspecified with intoxication, unspecified Status: Acute Assessment and Plan: Counseling monitor for alcohol withdrawal Vitamin replaced (5) Ulcer of toe: Qualifiers: Laterality: right Non-pressure ulcer stage: with fat layer exposed Qualified Code(s): L97.512 - Non-pressure chronic ulcer of other part of right foot with fat layer exposed Code(s): L97.509 - Non-pressure chronic ulcer of other part of unspecified foot with unspecified severity Status: Acute Assessment and Plan: Wound care consult (6) Fall: Qualifiers: Encounter type: initial encounter Qualified Code(s): W19.XXXA - Unspecified fall, initial encounter Code(s): W19.XXXA - Unspecified fall, initial encounter Status: Acute Assessment and Plan: PT OT eval (7) MANUEL (obstructive sleep apnea): Code(s): G47.33 - Obstructive sleep apnea (adult) (pediatric) Status: Acute Assessment and Plan: Continue home treatment (8) Chronic kidney disease, stage 3 unspecified: Code(s): N18.30 - Chronic kidney disease, stage 3 unspecified Status: Acute Assessment and Plan: History of kidney transplant on tacrolimus patient also on Bactrim DC Bactrim because of hyperkalemia Nephrology consult monitor BMP (9) Diabetes: Qualifiers: Diabetes mellitus type: type 2 Diabetes mellitus intermodal customer service insulin use: with intermodal customer service use Diabetes mellitus complication status: with kidney complications Diabetes mellitus complication detail: with chronic kidney disease Chronic kidney disease stage: unspecified stage Qualified Code(s): E11.22 - Type 2 diabetes mellitus with diabetic chronic kidney disease; Z79.4 - long-term (current) use of insulin Code(s): E11.9 - Type 2 diabetes mellitus without complications Status: Acute Assessment and Plan: Insulin sliding scale Lantus (10) Cirrhosis of liver with ascites: Code(s): K74.60 - Unspecified cirrhosis of liver; R18.8 - Other ascites Status: Acute Assessment and Plan: Avoid hepatotoxic medication Monitor closely Check ammonia level (11) Chronic pain disorder: Code(s): G89.4 - Chronic pain syndrome Status: Acute Assessment and Plan: Complicated decision regarding pain medication as patient has chronic pain syndrome and history of liver failure and kidney failure (12) Chronic low back pain with sciatica: Code(s): M54.40 - Lumbago with sciatica, unspecified side; G89.29 - Other chronic pain Status: Acute Assessment and Plan: Pain control (13) Benign essential hypertension: Code(s): I10 - Essential (primary) hypertension Status: Ac
[2021-04-04] MEDS: GABAPENTIN 100 MG CAPSULE 200 MG PO ×2 (08:45→17:13)
[2021-04-04] MEDS: FOLIC ACID 1 MG TABLET PO (08:45)
[2021-04-04] MEDS: OMEGA 3 POLYUNSAT FATTY ACIDS 1 GM CAP PO ×2 (08:45→17:13)
[2021-04-04] MEDS: SODIUM BICARBONATE TAB 650 MG TABLET PO ×2 (08:45→17:13)
[2021-04-04] MEDS: THIAMINE HCL 100 MG TABLET PO (08:45)
[2021-04-04] MEDS: LIDOCAINE 5% PATCH 3 PATCH TRANSDERM (08:45)
[2021-04-04] MEDS: CHOLECALCIFEROL 1,000 UNITS TABLET 1000 UNITS PO (08:46)
[2021-04-04] MEDS: MULTIVITAMINS THERAPEUTIC TAB (*BKC) 1 TABLET PO (08:46)
[2021-04-04] MEDS: ASPIRIN 81 MG ENTERIC TABLET PO (08:46)
[2021-04-04] MEDS: PYRIDOXINE HCL 50 MG TABLET 100 MG PO (08:46)
[2021-04-04] MEDS: AZELASTINE HCL NASAL 0.1% 137 MCG/SPR 30 ML BTL 1 SPRAY NASAL ×2 (08:46→22:13)
[2021-04-04] MEDS: predniSONE 5 MG TABLET PO (08:46)
[2021-04-04] MEDS: IPRATROPIUM NASAL SPRAY 0.03% 15 ML BOTTLE 2 SPRAY NASAL ×2 (08:46→22:18)
[2021-04-04] MEDS: CALCIUM CARBONATE (OSCAL) 500 MG TABLET 1000 MG PO (08:46)
[2021-04-04] MEDS: methocarbamoL 500 MG TABLET PO (08:46)
--- NOTE | 2021-04-04 10:29 | PCPTNOTE ---
Attempted to see patient for PT, however patient refused to participate in therapy. Patient initially agreed to work with PT and to get up to chair, when attempting to have patient sit edge of bed patient refused to participate and reported pain in right hip. RN aware.
[2021-04-04 11:52] LABS: Glucose Point of Care 168 mg/dl (65-105)
[2021-04-04] MEDS: ERTAPENEM 1 GM/NS 50 ML 1 GM/50 ML BAG IVPB (12:28)
--- NOTE | 2021-04-04 13:33 | PCOTNOTE ---
Attempted to see patient at 13:26pm, patient refused OT services this date due to being too tiered and pain in leg .
[2021-04-04 14:00] VITALS: BP 148/86; PULSE 101; RESP 14; TEMP 36.2; O2SAT 99
[2021-04-04 16:35] LABS: Glucose Point of Care 140 mg/dl (65-105)
[2021-04-04 21:08] VITALS: BP 136/65; PULSE 89; RESP 14; TEMP 36.5; O2SAT 92
[2021-04-04] MEDS: INSULIN GLARGINE (*BKC) 100 UNITS/ML 8 UNITS SUB-Q (22:24)
[2021-04-04 22:31] LABS: Glucose Point of Care 130 mg/dl (65-105)
[2021-04-05] MEDS: HYDROcodone/acetaminophen (*CRX) 5-325 MG TABLET 1 TAB PO ×3 (02:32→22:17)
[2021-04-05] MEDS: methocarbamoL 500 MG TABLET PO ×2 (02:34→08:26)
[2021-04-05 05:21] VITALS: BP 152/94; PULSE 101; RESP 16; TEMP 36.9; O2SAT 97
[2021-04-05] MEDS: gemfibroziL 600 MG TABLET PO ×2 (06:45→16:39)
[2021-04-05] MEDS: MINOCYCLINE HCL 50 MG CAPSULE 100 MG PO (06:46)
[2021-04-05] MEDS: CENTRAL LINE FLUSH 10 ML IV PUSH ×3 (06:52→20:17)
[2021-04-05 07:59] VITALS: BP 128/81; PULSE 106; RESP 20; TEMP 36.4; O2SAT 96
[2021-04-05 08:00] LABS: Glucose Point of Care 82 mg/dl (65-105)
[2021-04-05] MEDS: SODIUM BICARBONATE TAB 650 MG TABLET PO ×2 (08:26→16:40)
[2021-04-05] MEDS: FOLIC ACID 1 MG TABLET PO (08:26)
[2021-04-05] MEDS: GABAPENTIN 100 MG CAPSULE 200 MG PO ×2 (08:26→16:39)
[2021-04-05] MEDS: MULTIVITAMINS THERAPEUTIC TAB (*BKC) 1 TABLET PO (08:26)
[2021-04-05] MEDS: PYRIDOXINE HCL 50 MG TABLET 100 MG PO (08:27)
[2021-04-05] MEDS: CALCIUM CARBONATE (OSCAL) 500 MG TABLET 1000 MG PO (08:27)
[2021-04-05] MEDS: OMEGA 3 POLYUNSAT FATTY ACIDS 1 GM CAP PO ×2 (08:27→16:39)
[2021-04-05] MEDS: IPRATROPIUM NASAL SPRAY 0.03% 15 ML BOTTLE 2 SPRAY NASAL ×2 (08:27→20:14)
[2021-04-05] MEDS: THIAMINE HCL 100 MG TABLET PO (08:27)
[2021-04-05] MEDS: AZELASTINE HCL NASAL 0.1% 137 MCG/SPR 30 ML BTL 1 SPRAY NASAL ×2 (08:27→20:15)
[2021-04-05] MEDS: CHOLECALCIFEROL 1,000 UNITS TABLET 1000 UNITS PO (08:27)
[2021-04-05] MEDS: predniSONE 5 MG TABLET PO (08:27)
[2021-04-05] MEDS: ASPIRIN 81 MG ENTERIC TABLET PO (08:27)
--- NOTE | 2021-04-05 09:34 | PM.IMPN ---
Progress Note: A&P Assessment and Plan (1) Acute hyperkalemia: Code(s): E87.5 - Hyperkalemia Status: Acute Assessment and Plan: Status post Kayexalate IV fluid Nephrology was consulted Resolved (2) Arm wound: Qualifiers: Encounter type: initial encounter Laterality: left Qualified Code(s): S41.102A - Unspecified open wound of left upper arm, initial encounter Code(s): S41.109A - Unspecified open wound of unspecified upper arm, initial encounter Status: Acute Assessment and Plan: Secondary to fall plastic surgeon was consulted status post repair (3) Laceration of leg: Qualifiers: Encounter type: initial encounter Laterality: right Qualified Code(s): S81.811A - Laceration without foreign body, right lower leg, initial encounter Code(s): S81.819A - Laceration without foreign body, unspecified lower leg, initial encounter Status: Acute Assessment and Plan: Continue wound dressing (4) Alcohol intoxication: Qualifiers: Complication of substance-induced condition: uncomplicated Qualified Code(s): F10.920 - Alcohol use, unspecified with intoxication, uncomplicated Code(s): F10.929 - Alcohol use, unspecified with intoxication, unspecified Status: Acute Assessment and Plan: Counseling monitor for alcohol withdrawal Vitamin replaced (5) Ulcer of toe: Qualifiers: Laterality: right Non-pressure ulcer stage: with fat layer exposed Qualified Code(s): L97.512 - Non-pressure chronic ulcer of other part of right foot with fat layer exposed Code(s): L97.509 - Non-pressure chronic ulcer of other part of unspecified foot with unspecified severity Status: Acute Assessment and Plan: Wound care consult (6) Fall: Qualifiers: Encounter type: initial encounter Qualified Code(s): W19.XXXA - Unspecified fall, initial encounter Code(s): W19.XXXA - Unspecified fall, initial encounter Status: Acute Assessment and Plan: PT OT eval (7) MANUEL (obstructive sleep apnea): Code(s): G47.33 - Obstructive sleep apnea (adult) (pediatric) Status: Acute Assessment and Plan: Continue home treatment (8) Chronic kidney disease, stage 3 unspecified: Code(s): N18.30 - Chronic kidney disease, stage 3 unspecified Status: Acute Assessment and Plan: History of kidney transplant on tacrolimus patient also on Bactrim DC Bactrim because of hyperkalemia Nephrology consult monitor BMP (9) Diabetes: Qualifiers: Diabetes mellitus type: type 2 Diabetes mellitus oil heaterman insulin use: with oil heaterman use Diabetes mellitus complication status: with kidney complications Diabetes mellitus complication detail: with chronic kidney disease Chronic kidney disease stage: unspecified stage Qualified Code(s): E11.22 - Type 2 diabetes mellitus with diabetic chronic kidney disease; Z79.4 - detention (current) use of insulin Code(s): E11.9 - Type 2 diabetes mellitus without complications Status: Acute Assessment and Plan: Insulin sliding scale Lantus (10) Cirrhosis of liver with ascites: Code(s): K74.60 - Unspecified cirrhosis of liver; R18.8 - Other ascites Status: Acute Assessment and Plan: Avoid hepatotoxic medication Monitor closely Check ammonia level (11) Chronic pain disorder: Code(s): G89.4 - Chronic pain syndrome Status: Acute Assessment and Plan: Complicated decision regarding pain medication as patient has chronic pain syndrome and history of liver failure and kidney failure (12) Chronic low back pain with sciatica: Code(s): M54.40 - Lumbago with sciatica, unspecified side; G89.29 - Other chronic pain Status: Acute Assessment and Plan: Pain control (13) Benign essential hypertension: Code(s): I10 - Essential (primary) hypertension Status: Ac
--- NOTE | 2021-04-05 09:37 | ECG_ITS ---
Measurements Intervals [place] Rate: 122 P: 81 [place]: 177 QRS: -20 QRSD: 64 T: 55 QT: 288 QTc: 412 Interpretive Statements SINUS TACHYCARDIA LOW QRS VOLTAGE IN LIMB LEADS ANTEROSEPTAL INFARCT, AGE INDETERMINATE CONSIDER INFERIOR INFARCT, AGE INDETERMINATE ABNORMAL ECG Electronically Signed On 04-05-2021 13:11:53 [employer]OUCH UP WORKER by Dean Bro D.O.
[2021-04-05 11:38] LABS: Glucose Point of Care 114 mg/dl (65-105)
[2021-04-05] MEDS: SODIUM CHLORIDE 0.9% IV 1,000 ML 100 ML IV CONT ×2 (12:13→22:11)
[2021-04-05 13:11] LABS: Basophils Percent Auto 0.5 % (0.2-1.2); Eosinophils Percent Auto 0.4 % (0-4.4); Hematocrit 30.1 % (42.0-52.0); Immature Granulocyte Absolute 0.05 K/mm3 (0.00-0.031); Immature Granulocyte Percent A 0.6 % (0-0.5); Lymphocytes Absolute Auto 0.41 K/mm3 (0.9-3.2); Lymphocytes Percent Auto 4.9 % (18.3-44.2); Mean Corpuscular HGB Conc 29.9 g/dl (32-36); Mean Corpuscular Hemoglobin 31.6 pg (26-34); Mean Corpuscular Volume 105.6 fl (80-100); Mean Platelet Volume 10.8 fl (7.4-10.4); Monocytes Absolute Auto 0.5 K/mm3 (0.1-0.6); Monocytes Percent Auto 6.2 % (2.6-8.5); Neutrophils Absolute Auto 7.4 K/mm3 (1.3-6.7); Neutrophils Percent Auto 87.4 % (45.5-73.1); Platelet Count Result 255 k/mm3 (150-375); Red Blood Count 2.85 M/mm3 (4.6-6.20); Red Cell Distribution Width 15.4 % (11.5-14.5); White Blood Count 8.5 K/mm3 (4.5-10.0)
--- NOTE | 2021-04-05 13:23 | PC.NURSE ---
On 04/05/21, the student, [Moshe Jacobo], provided care and completed [facility] documentation on this patient. I have reviewed the student's documentation and agree with the findings.
[2021-04-05 13:25] LABS: Alanine Aminotransferase 14 U/L (4-50); Alkaline Phosphatase 273 U/L (38-126); Anion Gap 6 mmol/L (8-16); Aspartate Amino Transferase 34 U/L (17-59); Bilirubin,Total 0.8 mg/dL (0.2-1.3); Blood Urea Nitrogen 20 mg/dL (9-20); Calcium 8.6 mg/dL (8.4-10.2); Carbon Dioxide 28 mmol/L (22-30); Chloride 104 mmol/L (98-107); Estimated CRCL calculation 52 ml/min; Estimated Glomerular Filt Rate > 60; Glucose 200 mg/dL (65-110); Potassium 4.3 mmol/L (3.4-5.0); Sodium 138 mmol/L (137-145)
--- NOTE | 2021-04-05 13:25 | WPDPN ---
Progress Note: A&P Assessment and Plan (1) Laceration of left upper arm: Onset Date: 03/2021 Code(s): S41.112A - Laceration without foreign body of left upper arm, initial encounter Status: Acute Assessment and Plan: Healing as expected. Sutures should remain until Apr 10. May be removed by RN. Small skin excoriation may be due to current adhesive dressing. Will switch to Tegaderm every three days (2) Laceration of leg: Qualifiers: Encounter type: initial encounter Laterality: right Qualified Code(s): S81.811A - Laceration without foreign body, right lower leg, initial encounter Code(s): S81.819A - Laceration without foreign body, unspecified lower leg, initial encounter Status: Acute Assessment and Plan: Healing as expected. Will have RN remove sutures Friday, . Discontinue dressing now. Subjective Date/time seen: 04/05/21 13:25 POD 9 S/P surgical repair of extensive laceration to left posterior arm. POD 11 S/P repair of laceration to right lateral knee by ED staff. Pt is cooperative and does not complain of pain or dysfunction at either site. Bruising remains marked. No bleeding. ROM both sites unrestricted. Objective Data Vital Signs Vital Signs: Vital Signs - 24 hr 04/04/21 14:00 04/04/21 21:08 04/05/21 05:21 Temperature 97.2 F L 97.7 F 98.5 F Pulse Rate 101 H 89 101 H Respiratory Rate 14 14 16 Blood Pressure 148/86 H 136/65 152/94 H Pulse Oximetry 99 92 97 04/05/21 07:59 Temperature 97.6 F Pulse Rate 106 H Respiratory Rate 20 Blood Pressure 128/81 Pulse Oximetry 96 Intake/Output Intake/Output: Intake & Output 04/02/21 04/03/21 04/04/21 04/05/21 23:59 23:59 23:59 23:59 Intake Total 1050 890 540 860 Output Total 1100 650 625 300 Balance -50 240 -85 560 Meds/Results Medications: Active Medications Generic Name Dose Route Start Last Admin Trade Name Freq PRN Reason Stop Dose Admin Acetaminophen 650 mg 03/25/21 21:24 04/01/21 06:15 Acetaminophen 325 Mg Tablet PO 650 mg Q4H PRN Administration Mild Pain (1-3) or Fever Hydrocodone Bitart/Acetaminophen 1 tab 03/25/21 21:24 04/05/21 09:54 Hydrocodone/Acetaminophen (*Crx) 5-325 Mg Tablet PO 1 tab Q4H PRN Administration Pain Rated 4-6 Aspirin 81 mg 03/26/21 09:00 04/05/21 08:27 Aspirin 81 Mg Enteric Tablet PO 81 mg DAILY AGUILAR Administration Azelastine HCl 1 spray 03/26/21 09:05 04/05/21 08:27 Azelastine Hcl Nasal 0.1% 137 Mcg/Spr 30 Ml Btl NASAL 1 spray Q12HR AGUILAR Administration Calcium Carbonate 1,000 mg 03/26/21 09:00 04/05/21 08:27 Calcium Carbonate (Oscal) 500 Mg Tablet PO 1,000 mg DAILY AGUILAR Administration Chlordiazepoxide HCl 25 mg 03/26/21 11:03 04/03/21 12:45 Chlordiazepoxide (*Crx) 25 Mg Capsule PO 25 mg Q6H PRN Administration Withdrawal Cyclobenzaprine HCl 5 mg 03/28/21 15:34 03/30/21 20:47 Cyclobenzaprine Hcl 5 Mg Tablet PO 5 mg Q8H PRN Administration Muscle Spasm Dextrose 12.5 gm 03/26/21 09:04 Dextrose 50% 25 Gm/50 Ml Syringe IV PUSH PRN PRN Hypoglycemia Protocol Fentanyl Citrate 25 mcg 03/28/21 10:42 03/28/21 13:00 Fentanyl Citrate Inj (*Crx) 100 Mcg/2 Ml Vial IV PUSH 25 mcg Q2M PRN Administration Pain Fish Oil 1 gm 03/26/21 17:00 04/05/21 08:27 [place] 3 Polyunsat Fatty Acids 1 Gm Cap PO 1 gm BID AGUILAR Administration Folic Acid 1 mg 03/26/21 09:00 04/05/21 08:26 Folic Acid 1 Mg Tablet PO 1 mg DAILY AGUILRA Administration Gabapentin 200 mg 03/26/21 17:00 04/05/21 08:26 Gabapentin 100 Mg Capsule PO 200 mg BID AGUILAR Administration Gemfibrozil 600 mg 03/26/21 09:00 04/05/21 06:45 Gemfibrozil 600 Mg Tablet PO 600 mg BIDAC AGUILAR Administration Glucagon 1 mg 03/26/21 09:04 Glucagon For Inj 1 Mg Vial IM PRN PRN Hypoglycemia Protocol Glucose 15 gm 03/26/21 09:04 Glucose Or
[2021-04-05 13:56] LABS: Magnesium 1.6 mg/dL (1.6-2.3)
[2021-04-05 14:11] LABS: Procalcitonin 0.1 ng/mL
[2021-04-05 14:43] VITALS: BP 122/81; PULSE 103; TEMP 36.3; O2SAT 100
[2021-04-05 16:24] LABS: Glucose Point of Care 151 mg/dl (65-105)
[2021-04-05 19:51] VITALS: BP 129/83; PULSE 102; RESP 20; TEMP 36; O2SAT 98
[2021-04-05] MEDS: INSULIN GLARGINE (*BKC) 100 UNITS/ML 8 UNITS SUB-Q (20:27)
[2021-04-05 22:05] LABS: Glucose Point of Care 123 mg/dl (65-105)
[2021-04-06 04:19] VITALS: BP 117/69; PULSE 93; RESP 18; TEMP 36.1; O2SAT 97
[2021-04-06] MEDS: methocarbamoL 500 MG TABLET PO (04:24)
[2021-04-06] MEDS: CENTRAL LINE FLUSH 10 ML IV PUSH ×2 (06:41→12:42)
[2021-04-06] MEDS: gemfibroziL 600 MG TABLET PO ×2 (06:42→17:08)
[2021-04-06] MEDS: MINOCYCLINE HCL 50 MG CAPSULE 100 MG PO (07:55)
[2021-04-06] MEDS: HYDROcodone/acetaminophen (*CRX) 5-325 MG TABLET 1 TAB PO ×2 (07:55→17:08)
[2021-04-06 08:38] LABS: Glucose Point of Care 74 mg/dl (65-105)
[2021-04-06] MEDS: ASPIRIN 81 MG ENTERIC TABLET PO (08:43)
[2021-04-06] MEDS: SODIUM CHLORIDE 0.9% IV 1,000 ML 100 ML IV CONT (08:43)
[2021-04-06] MEDS: GABAPENTIN 100 MG CAPSULE 200 MG PO ×2 (08:44→17:08)
[2021-04-06] MEDS: AZELASTINE HCL NASAL 0.1% 137 MCG/SPR 30 ML BTL 1 SPRAY NASAL (08:44)
[2021-04-06] MEDS: MULTIVITAMINS THERAPEUTIC TAB (*BKC) 1 TABLET PO (08:44)
[2021-04-06] MEDS: FOLIC ACID 1 MG TABLET PO (08:44)
[2021-04-06] MEDS: CALCIUM CARBONATE (OSCAL) 500 MG TABLET 1000 MG PO (08:44)
[2021-04-06] MEDS: OMEGA 3 POLYUNSAT FATTY ACIDS 1 GM CAP PO ×2 (08:44→17:08)
[2021-04-06] MEDS: PYRIDOXINE HCL 50 MG TABLET 100 MG PO (08:44)
[2021-04-06] MEDS: CHOLECALCIFEROL 1,000 UNITS TABLET 1000 UNITS PO (08:44)
[2021-04-06] MEDS: IPRATROPIUM NASAL SPRAY 0.03% 15 ML BOTTLE 2 SPRAY NASAL (08:44)
[2021-04-06] MEDS: predniSONE 5 MG TABLET PO (08:44)
[2021-04-06] MEDS: LIDOCAINE 5% PATCH 3 PATCH TRANSDERM (08:45)
[2021-04-06] MEDS: SODIUM BICARBONATE TAB 650 MG TABLET PO ×2 (08:45→17:08)
[2021-04-06] MEDS: THIAMINE HCL 100 MG TABLET PO (08:45)
--- NOTE | 2021-04-06 09:44 | PM.DS ---
DS: Admitting Diagnosis Discharge Date 04/06/2021 Admitting Diagnosis Altered mental status DS: Discharge Diagnosis Discharge Diagnosis (1) Acute hyperkalemia: Code(s): E87.5 - Hyperkalemia Status: Acute Assessment and Plan: Status post Kayexalate IV fluid Nephrology was consulted Resolved Repeat CMP in 1 week (2) Arm wound: Qualifiers: Encounter type: initial encounter Laterality: left Qualified Code(s): S41.102A - Unspecified open wound of left upper arm, initial encounter Code(s): S41.109A - Unspecified open wound of unspecified upper arm, initial encounter Status: Acute Assessment and Plan: Secondary to fall plastic surgeon was consulted status post repair follow-up with plastic surgeon as outpatient Per plastic surgeon Healing as expected. Sutures should remain until Apr 10. May be removed by RN. Small skin excoriation may be due to current adhesive dressing. Will switch to Tegaderm every three days (3) Laceration of leg: Qualifiers: Encounter type: initial encounter Laterality: right Qualified Code(s): S81.811A - Laceration without foreign body, right lower leg, initial encounter Code(s): S81.819A - Laceration without foreign body, unspecified lower leg, initial encounter Status: Acute Assessment and Plan: Continue wound dressing Per plastic surgeon suture may be removed on 04/08/2021 (4) Alcohol intoxication: Qualifiers: Complication of substance-induced condition: uncomplicated Qualified Code(s): F10.920 - Alcohol use, unspecified with intoxication, uncomplicated Code(s): F10.929 - Alcohol use, unspecified with intoxication, unspecified Status: Acute Assessment and Plan: Counseling monitor for alcohol withdrawal resolved Vitamin replaced (5) Ulcer of toe: Qualifiers: Laterality: right Non-pressure ulcer stage: with fat layer exposed Qualified Code(s): L97.512 - Non-pressure chronic ulcer of other part of right foot with fat layer exposed Code(s): L97.509 - Non-pressure chronic ulcer of other part of unspecified foot with unspecified severity Status: Acute Assessment and Plan: Wound care consult follow-up with PCP (6) Fall: Qualifiers: Encounter type: initial encounter Qualified Code(s): W19.XXXA - Unspecified fall, initial encounter Code(s): W19.XXXA - Unspecified fall, initial encounter Status: Acute Assessment and Plan: PT OT eval (7) MANUEL (obstructive sleep apnea): Code(s): G47.33 - Obstructive sleep apnea (adult) (pediatric) Status: Acute Assessment and Plan: Continue home treatment (8) Chronic kidney disease, stage 3 unspecified: Code(s): N18.30 - Chronic kidney disease, stage 3 unspecified Status: Acute Assessment and Plan: History of kidney transplant on tacrolimus patient also on Bactrim DC Bactrim because of hyperkalemia Nephrology consult repeat CMP in 1 week (9) Diabetes: Qualifiers: Diabetes mellitus type: type 2 Diabetes mellitus watermelon inspector insulin use: with watermelon inspector use Diabetes mellitus complication status: with kidney complications Diabetes mellitus complication detail: with chronic kidney disease Chronic kidney disease stage: unspecified stage Qualified Code(s): E11.22 - Type 2 diabetes mellitus with diabetic chronic kidney disease; Z79.4 - senior living (current) use of insulin Code(s): E11.9 - Type 2 diabetes mellitus without complications Status: Acute Assessment and Plan: Insulin sliding scale Lantus (10) Cirrhosis of liver with ascites: Code(s): K74.60 - Unspecified cirrhosis of liver; R18.8 - Other ascites Status: Acute Assessment and Plan: Avoid hepatotoxic medication Monitor closely Monitor closely complicated decision regarding pain control (11) Chronic pain disorder: Code(s): G89.4 - Chronic p
[2021-04-06 11:24] LABS: Basophils Percent Auto 0.6 % (0.2-1.2); Eosinophils Absolute Auto 0.1 K/mm3 (0-0.3); Hematocrit 27.5 % (42.0-52.0); Hemoglobin 8.4 g/dL (14.0-18.0); Immature Granulocyte Absolute 0.03 K/mm3 (0.00-0.031); Immature Granulocyte Percent A 0.4 % (0-0.5); Lymphocytes Absolute Auto 0.44 K/mm3 (0.9-3.2); Lymphocytes Percent Auto 6.4 % (18.3-44.2); Mean Corpuscular HGB Conc 30.5 g/dl (32-36); Mean Corpuscular Hemoglobin 32.1 pg (26-34); Mean Platelet Volume 10.8 fl (7.4-10.4); Monocytes Absolute Auto 0.5 K/mm3 (0.1-0.6); Monocytes Percent Auto 7.5 % (2.6-8.5); Neutrophils Absolute Auto 5.8 K/mm3 (1.3-6.7); Neutrophils Percent Auto 84.1 % (45.5-73.1); Platelet Count Result 243 k/mm3 (150-375); Red Blood Count 2.62 M/mm3 (4.6-6.20); White Blood Count 6.8 K/mm3 (4.5-10.0)
[2021-04-06 11:36] LABS: Alanine Aminotransferase 12 U/L (4-50); Albumin Level 2.6 g/dL (3.5-5.1); Alkaline Phosphatase 256 U/L (38-126); Anion Gap 1 mmol/L (8-16); Aspartate Amino Transferase 28 U/L (17-59); Bilirubin,Total 0.6 mg/dL (0.2-1.3); Blood Urea Nitrogen 17 mg/dL (9-20); Calcium 8.5 mg/dL (8.4-10.2); Carbon Dioxide 27 mmol/L (22-30); Chloride 109 mmol/L (98-107); Estimated CRCL calculation 64 ml/min; Estimated Glomerular Filt Rate > 60; Glucose 109 mg/dL (65-110); Sodium 137 mmol/L (137-145)
[2021-04-06 11:40] LABS: Glucose Point of Care 107 mg/dl (65-105)
[2021-04-06 13:19] LABS: EDCOVIDSCREEN Negative (Negative)
--- NOTE | 2021-04-06 15:39 | PCPTNOTE ---
Nursing asked to hold on physical therapy treatment at this time due to patient in preparation to be discharged later today.
[2021-04-06 16:34] LABS: Glucose Point of Care 119 mg/dl (65-105)
[2021-04-06] MEDS: NEOMYCIN/POLYMYXIN/BACITRACIN OINTMENT PACKET 1 PACKET (17:09)
== END 2021-04-06 19:00 | DRG 982 ==
LOC: ANHED 22:27 → ANHIMU 03-26 03:21 → ANH2MED 03-29 17:51
PROVIDERS: Family Medicine; Internal Medicine; Internal Medicine Nephrology; Nurse Practitioner; Plastic Surgery; Admitting Provider Internal Medicine; Emergency Provider Emergency Medicine; PCP Internal Medicine; Visit Provider Internal Medicine
PROC: 0HQCXZZ Repair Left Upper Arm Skin, External Approach (ICD-10-PCS; principal; 2021-03-28 11:00)
DX: E87.5 Hyperkalemia (principal); S22.41XA Multiple fractures of ribs, right side, initial encounter for closed fracture; S22.069A Unspecified fracture of T7-T8 vertebra, initial encounter for closed fracture; N39.0 Urinary tract infection, site not specified; Z16.12 Extended spectrum beta lactamase (ESBL) resistance; Z94.0 Kidney transplant status; D84.821 Immunodeficiency due to drugs; S41.112A Laceration without foreign body of left upper arm, initial encounter; T38.0X5A Adverse effect of glucocorticoids and synthetic analogues, initial encounter; S81.811A Laceration without foreign body, right lower leg, initial encounter; W19.XXXA Unspecified fall, initial encounter; F10.229 Alcohol dependence with intoxication, unspecified; Y90.8 Blood alcohol level of 240 mg/100 ml or more; G47.33 Obstructive sleep apnea (adult) (pediatric); N18.32 Chronic kidney disease, stage 3b; E11.22 Type 2 diabetes mellitus with diabetic chronic kidney disease; I12.9 Hypertensive chronic kidney disease with stage 1 through stage 4 chronic kidney disease, or unspecified chronic kidney disease; G89.4 Chronic pain syndrome; B96.29 Other Escherichia coli [E. coli] as the cause of diseases classified elsewhere; E11.319 Type 2 diabetes mellitus with unspecified diabetic retinopathy without macular edema; R00.0 Tachycardia, unspecified; K70.31 Alcoholic cirrhosis of liver with ascites; K70.10 Alcoholic hepatitis without ascites; E86.0 Dehydration; H35.30 Unspecified macular degeneration; D63.1 Anemia in chronic kidney disease; D50.9 Iron deficiency anemia, unspecified; L97.512 Non-pressure chronic ulcer of other part of right foot with fat layer exposed; Z20.822 Contact with and (suspected) exposure to COVID-19; Z96.651 Presence of right artificial knee joint; Z99.2 Dependence on renal dialysis; Z79.4 Long term (current) use of insulin; Z85.828 Personal history of other malignant neoplasm of skin; Z98.84 Bariatric surgery status; Z87.891 Personal history of nicotine dependence; Z79.82 Long term (current) use of aspirin; Z79.899 Other long term (current) drug therapy
CPT/HCPCS: 12002; 36415; 36430; 36569; 70450; 71045; 71101; 72128; 72131; 73060; 73502; 73562; 80048; 80053; 80069; 80197; 80202; 80307; 81001; 81050; 82274; 82550; 82570; 82948; 83540; 83550; 83735; 83935; 84132; 84133; 84145; 84156; 84300; 85014; 85018; 85025; 85027; 85610; 85730; 86850; 86900; 86901; 86920; 87040; 87086; 87426; 87502; 93005; 96361; 96374; 96375; 97110; 97161; 97165; 97530; 97535; 99285; A9270; C1751; C9113; C9803; G0378; J1335; J1756; J1815; J2060; J2250; J2270; J2550; J2704; J3010; J3370; J7030; J7040; J7050; J7512; P9016; U0003; U0005

== ENCOUNTER 2021-07-26 08:14 | Outpatient (CLI) | payer MEDICARE, SELFPAY ==
--- NOTE | 2021-08-01 19:41 | WPDSLEEPSTUD ---
Sleep Study Date of Study: 07/26/21 Ordering Provider: Mike Salcedo PA-C Interpreting Physician: Soha Rodriguez MD Sleep Study Type: BiPAP Titration Height: 1.73 m Weight: 86.183 kg Body Mass Index: 28.8 Neck Circumference (inches): 16 [place]: 2 Reason for Sleep Study * Long history of obstructive sleep apnea, used BiPAP for 20 years, then lost 200 lb and stopped using PAP; he had HSAT to see if he still had apnea. * Home Sleep Apnea Test with [facility] 12/05/2020 with severe central sleep apnea, apnea hypopnea index 50.2, central AHI 29.6 without Jb-Jacinto respirations, desaturation to 87%. REM AHI was 49.5. He presents for a titration. Sleep History Abhilash Jesus is a 66 year-old man with obstructive sleep apnea for 20 years, treated with BiPAP until he lost 200 lb after gastric bypass. At some point after large weight loss, he stopped using PAP. He continued to have morning headaches, so a home sleep test was ordered to see if he had persistent sleep apnea. His home sleep test 11/28/2020 showed severe sleep apnea, mainly central events. He has co-morbidities including diabetes, GERD, hypertension, chronic kidney disease with a renal transplant in 2007 and immunosuppression. The patient denies awakening from sleep short of breath or with GERD symptoms.? The patient often snores but not loudly enough that others complain. He denies waking up gasping for air during the night.? He often has heart palpitations throughout the night.? He often falls asleep during the day but denies falling asleep while driving.? He often experiences loss of muscle tone with strong emotion. He denies having trouble at school or work due to sleepiness.? He denies feeling paralyzed on waking or falling asleep. He often experiences vivid dreamlike scenes upon waking or falling asleep.? Denies nightmares.? He denies feeling depressed or anxious.? He denies kicking throughout the night or noticing parts of his body jerk.? He denies experiencing crawling and aching feelings in his legs.? He frequently has leg pain throughout the night.? He denies grinding his teeth throughout the night and morning jaw pain.? He is frequently bothered by pain throughout the day although he is rarely awakened by pain during the night.? He frequently wakes up feeling stiff in the morning with sore and achy muscles.? He constantly wakes up with pain in the neck spine or joints. Normal bedtime is 10:00 p.m. taking about 20 minutes to fall asleep, getting about 7 hours of sleep.? He wakes up twice throughout the night to go to the bathroom. He usually falls asleep within 5 minutes after getting up during the night.? He wakes at 6:30 a.m. He occasionally takes naps during the afternoon or evening and feels refreshed afterwards.? Habits: The patient is a former smoker.? He drinks 2 caffeinated beverages per day.? He denies alcohol or recreational drug use.? [facility] Past Medical History Medical History (Updated 08/01/21 @ 23:10 by Soha Rodriguez MD) [employer] Central sleep apnea without Jb-Jacinto respiration Chronic alcohol abuse Chronic kidney disease With kidney failure due to diabetes and hypertension. He was on hemodialysis for 1.5 years prior to getting any renal transplant 2007. His daughter donated her kidney. His creatinine with his transplant kidney is between 1 and 1.4 since 2019. 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
[2021-08-01 23:11] VITALS: BMI 28.8
== END 2021-07-27 07:00 | disposition home or self-care (01) ==
LOC: ANHCSM 08:15
PROVIDERS: PCP Internal Medicine; Visit Provider Physician Assistant
DX: G47.33 Obstructive sleep apnea (adult) (pediatric) (principal)
CPT/HCPCS: 95811

== ENCOUNTER 2022-05-21 10:49 | Outpatient (CLI) | payer MEDICARE, SELFPAY | END 2022-05-21 10:50 | disposition home or self-care (01) | PROVIDERS: PCP Physician Assistant; Visit Provider Physician Assistant | DX: H90.3 Sensorineural hearing loss, bilateral (principal) | CPT/HCPCS: 92557; 92567 ==